=== PATIENT | male | born 1955 | race Caucasian/White ===

== ENCOUNTER → 2018-01-10 | Outpatient (REF) | payer OTHER | LOC: M LAB REF 20:02 | DX: J02.9 Acute pharyngitis, unspecified (principal) ==

== ENCOUNTER 2018-04-09 14:28 | Emergency (ER) | payer OTHER ==
[2018-04-09] MEDS: NS IV (15:30)
[2018-04-09] MEDS: ACETAMINOPHEN 325 MG TAB PO (15:30)
[2018-04-09] MEDS: DILUENT IV (15:30)
[2018-04-09] MEDS: CLINDAMYCIN 900 MG in APPROPRIATE DILUENT 1 EA IV (15:45)
[2018-04-09 15:47] LABS: BASO % 0.2 % (0.0-1.0); HEMOGLOBIN 14.8 g/dl (13.5-17.5); IMMATURE GRANULOCYTE % 0.4 % (0-3.0); LYMPH # 1.3 10^3/uL (1.5-4.5); LYMPH % 9.6 % (24.0-44.0); MEAN CORPUSCULAR HEMOGLOBIN 30.5 pg (27.0-33.0); MEAN CORPUSCULAR HGB CONC 34.4 g/dl (32.0-36.5); MEAN CORPUSCULAR VOLUME 88.5 fl (80.0-96.0); MONO # 1.3 10^3/uL (0.0-0.8); MONO % 9.7 % (0.0-5.0); NEUTROPHILS # 10.6 10^3/uL (1.8-7.7); NEUTROPHILS % 80.1 % (36.0-66.0); PLATELET COUNT, AUTOMATED 195 10^3/uL (150-450); RED BLOOD COUNT 4.86 10^6/uL (4.30-6.10); RED CELL DISTRIBUTION WIDTH 13.8 % (11.5-14.5); WHITE BLOOD COUNT 13.3 10^3/uL (4.0-10.0)
[2018-04-09 15:50] LABS: APPEARANCE, URINE CLOUDY (CLEAR); BACTERIA, URINE AUTO NEGATIVE (NEGATIVE); BILIRUBIN, URINE AUTO NEGATIVE (NEGATIVE); BLOOD, URINE BLOOD NEGATIVE (NEGATIVE); COLOR, URINE AMBER (YELLOW); GLUCOSE, URINE (UA) AUTO NEGATIVE (NEGATIVE); KETONE, URINE AUTO 1+ mg/dL (NEGATIVE); LEUKOCYTE ESTERASE, URINE AUTO NEGATIVE (NEGATIVE); MUCUS, URINE LARGE (NEGATIVE); NITRITE, URINE AUTO NEGATIVE (NEGATIVE); PROTEIN, URINE AUTO 2+ mg/dL (NEGATIVE); RBC, URINE AUTO 6 /HPF (0-3); SPECIFIC GRAVITY URINE AUTO 1.026 (1.002-1.035); SQUAMOUS EPITHELIAL CELL UR AU 0 /HPF (0-6); UROBILINOGEN, URINE AUTO 0.2 mg/dL (0.0-2.0); WBC, URINE AUTO 1 /HPF (0-3)
[2018-04-09] MEDS: CIPRODEX OTIC SUSP 7.5ML AS (16:00)
[2018-04-09 16:02] LABS: INR 1.13; PROTHROMBIN TIME 14.6 SECONDS (12.1-14.4)
[2018-04-09 16:03] LABS: PARTIAL THROMBOPLASTIN TIME 29.9 SECONDS (25.4-37.6)
[2018-04-09 16:11] LABS: ALBUMIN/GLOBULIN RATIO 1.08 (1.00-1.93); ALKALINE PHOSPHATASE 60 U/L (45-117); ALT/SGPT 24 U/L (12-78); ANION GAP 10 MEQ/L (8-16); AST/SGOT 15 U/L (7-37); BILIRUBIN,DIRECT 0.1 MG/DL (0.0-0.2); BILIRUBIN,TOTAL 0.5 MG/DL (0.2-1.0); BLOOD UREA NITROGEN 13 MG/DL (7-18); C REACTIVE PROTEIN QUANTITATIV 9.27 MG/DL (0.00-0.30); CALCIUM LEVEL 8.8 MG/DL (8.8-10.2); CARBON DIOXIDE LEVEL 26 MEQ/L (21-32); CHLORIDE LEVEL 103 MEQ/L (98-107); CREATININE FOR GFR 1.11 MG/DL (0.70-1.30); GLOMERULAR FILTRATION RATE > 60.0 (>49); GLUCOSE, FASTING 116 MG/DL (70-100); LIPASE 132 U/L (73-393); POTASSIUM SERUM 3.9 MEQ/L (3.5-5.1); SODIUM LEVEL 139 MEQ/L (136-145); TOTAL PROTEIN 7.7 GM/DL (6.4-8.2)
[2018-04-09] MEDS: MORPHINE 4 MG/ML 1ML VIAL/SYRINGE (J2270) IV (16:11)
[2018-04-09 16:12] LABS: LACTIC ACID SEPSIS PROTOCOL 1.5 MMOL/L (0.4-2.0)
[2018-04-09] MEDS ORDERED: ISOVUE-370 76% 100ML VIAL (Q9967) As Ordered (16:24)
== END 2018-04-09 18:05 | disposition home or self-care (01) ==
LOC: M ED 14:28
DX: H60.12 Cellulitis of left external ear (principal); R50.9 Fever, unspecified; M54.5 Low back pain; I10 Essential (primary) hypertension; E78.9 Disorder of lipoprotein metabolism, unspecified; G47.33 Obstructive sleep apnea (adult) (pediatric); Z79.02 Long term (current) use of antithrombotics/antiplatelets
CPT/HCPCS: J2270

== ENCOUNTER 2018-10-03 21:24 | Emergency (ER) | payer OTHER ==
[~2018-10-03] VITALS: Ht 167.6 cm; Wt 88.6 kg
[~2018-10-03 21:24] MED LIST: AMLO5TAB6 PO; ASPI1TAB PO; ATOR40TA75 PO; CLEO300C2 PO; CLOP75TA2 PO; HYDR12.55 PO; MULT1TAB10 PO; NORCOTAB PO; TELM1TAB37 PO; TERB250T12 PO; VITA100067 PO; VITA500T3 PO
[2018-10-03 21:47] LABS: BASO % 0.2 % (0.0-1.0); EOS # 0.1 10^3/uL (0.0-0.50); EOS % 0.9 % (0.0-3.0); HEMATOCRIT 41.3 % (42.0-52.0); HEMOGLOBIN 13.8 g/dl (13.5-17.5); LYMPH # 4.5 10^3/uL (1.5-4.5); LYMPH % 49.8 % (24.0-44.0); MEAN CORPUSCULAR HEMOGLOBIN 30.2 pg (27.0-33.0); MEAN CORPUSCULAR HGB CONC 33.4 g/dl (32.0-36.5); MEAN CORPUSCULAR VOLUME 90.4 fl (80.0-96.0); MONO # 0.9 10^3/uL (0.0-0.8); MONO % 9.9 % (0.0-5.0); NEUTROPHILS # 3.5 10^3/uL (1.8-7.7); NEUTROPHILS % 38.9 % (36.0-66.0); PLATELET COUNT, AUTOMATED 215 10^3/uL (150-450); RED BLOOD COUNT 4.57 10^6/uL (4.30-6.10)
[2018-10-03 22:18] LABS: BLOOD UREA NITROGEN 18 MG/DL (7-18); CALCIUM LEVEL 8.7 MG/DL (8.8-10.2); CARBON DIOXIDE LEVEL 31 MEQ/L (21-32); CHLORIDE LEVEL 105 MEQ/L (98-107); CPK CREATINE PHOSPHOKINASE 194 U/L (39-308); CREATININE FOR GFR 1.19 MG/DL (0.70-1.30); GLOMERULAR FILTRATION RATE > 60.0 (>49); GLUCOSE, FASTING 100 MG/DL (70-100); MB/CK RELATIVE INDEX 1.49 (< OR =4); POTASSIUM SERUM 3.9 MEQ/L (3.5-5.1); SODIUM LEVEL 141 MEQ/L (136-145); TROPONIN I < 0.02 NG/ML (< 0.10)
[2018-10-03 23:05] VITALS: BP 116/63
--- NOTE | 2018-10-04 08:04 | ECGEPIP ---
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
--- NOTE | 2018-10-04 11:30 | REP ---
Clinical: Palpitations and chest pain . Comparison: 02/10/2013 . Findings: The mediastinum and cardiac silhouette are stable and within normal limits for portable technique. Evidence of prior sternotomy. The The lung felder are clear without acute consolidation, effusion, or pneumothorax. Skeletal structures are intact. Impression: No acute cardiopulmonary process appreciated. Electronically Signed by Johnathan Bush MD 10/04/2018 11:21 A
== END 2018-10-03 23:12 | disposition home or self-care (01) ==
LOC: M ED 21:24
DX: R07.89 Other chest pain (principal); R00.1 Bradycardia, unspecified; I25.10 Atherosclerotic heart disease of native coronary artery without angina pectoris; I10 Essential (primary) hypertension; N40.0 Benign prostatic hyperplasia without lower urinary tract symptoms; Z95.1 Presence of aortocoronary bypass graft; Z79.82 Long term (current) use of aspirin; Z79.899 Other long term (current) drug therapy

== ENCOUNTER → 2019-01-18 | Outpatient (CLI) | payer MEDICARE, OTHER ==
[~2019-01-18] MED LIST changes: -ASPI1TAB PO; +ASPI81TA26 PO; +HYDR-3715 PO; -NORCOTAB PO
--- NOTE | 2019-01-20 22:36 | SLEEPCENT ---
DATE OF PROCEDURE: 01/20/2019 ORDERED BY: Araceli Shah Nocturnal polysomnography was performed for the titration of pressure therapy in this patient with obstructive sleep apnea syndrome. Apnea-hypopnea index of 19.1. For testing a ResMed AirFit F20 full face mask of large size was used, 8 cm of water pressure was initially applied to the circuit and the lights were extinguished. 7 hours and 46 minutes of data were reviewed. There were 332 minutes of sleep identified. Sleep latency was mildly prolonged at 23 minutes. Rapid eye movement (REM) latency more so prolonged at 207 minutes. Sleep architecture improved late in the study but periods of wake resulted in reduced sleep efficiency of 72.4%. The patient's electrocardiogram showed a sinus rhythm with an average heart rate of 70 beats per minute, rate ranged 50-82. EEG showed normal waveforms for awake and sleep. Respiratory events were fully palliated with continuous positive airway pressure (CPAP) at a pressure of +9. There was some limb activity noted in the EMG leads. Some minor snoring. Limb movement arousals occurred only 4.7 times per hour. IMPRESSION: Obstructive sleep apnea syndrome (G47.33). RECOMMENDATIONS: Nightly use of pressure therapy 9 cm of water.
== END ==
LOC: M SLEEP 19:29
PROVIDERS: ATTEND Nurse Practitioner Adult Health
DX: G47.33 Obstructive sleep apnea (adult) (pediatric) (principal)

== ENCOUNTER 2020-09-09 05:43 | Inpatient (IN) | payer OTHER ==
[~2020-09-09] VITALS: Ht 167.6 cm; Wt 93.6 kg
[~2020-09-09 05:43] MED LIST changes: +AMLO1TAB24 PO; -AMLO5TAB6 PO; +CYAN500T14 PO; -VITA500T3 PO
--- OUTSIDE RECORDS SUMMARY | 2020-09-09 05:49 | CCD | Continuity of Care Document ---
Author Author Joey ESTRADA RPA Organization Unknown Address [address] [facility]. [address] [place] [address] Phone [phone] Problems Active Problems Provider Date Coronary arteriosclerosis Travis Estrada RPA Onset: 11/11 Hyperlipidemia Travis Estrada RPA Onset: 02/28/2007 Chronic otitis externa Travis Estrada RPA Onset: 012 Acquired trigger finger Travis Estrada RPA Onset: 2011 Benign prostatic hypertrophy without outflow obstruction Travis Forrest RPA Onset: 03/04/2012 Anemia Travis Estrada RPA Onset: 04/19/2012 Obstructive sleep apnea syndrome Travis Estrada RPA Onse t: 10/17/2016 Note: CPAP 8cm Pressure Secondary erectile dysfunction Travis Estrada RPA Onset: 10/17/2016 Nocturia Travis Estrada RPA Onset: 10/17/2016 Paroxysmal supraventricular tachycardia Travis Estrada R PA Onset: 10/17/2016 Coronary artery bypass grafts x 4 Travis Estrada RPA Ons et: 10/17/2016 Note: Dr. Fajardo Impaired fasting glycaemia Travis Estrada RPA Onset: 02/2017 Patient post percutaneous transluminal coronary angiop lasty Travis Estrada RPA Onset: 12/10/2017 Psychogenic impotence Travis Estrada RPA Onset: 10/18/19 17 Essential hypertension Travis Estrada RPA Onset: 017 Social History Type Date Description Comments Sex Unknown Tobacco Use Start: Unknown End: Unknown Patient is a former smoker Allergies, Adverse Reactions, Alerts Description No Known Drug Allergies Medications Active Medications SIG Qnty Indications Ordering Provide r Date Solu-Medrol 125mg Solution Rec intramuscular stat 1units Michael Ramírez D.O., [facility] 08/31/2020 Prednisone 10mg Tablets 2 po tid x 3 days, then 1 po tid x 3 days, then 1 po bid x 3 days, then 1 po qd x 3 days, then 1/2 po qd 42tabs Michael Ramírez D.O., [facility] Baclofen 10mg Tablets take 1 tablet by mouth every at bedtime 14tabs Michael Ramírez D.O., [facility] 08/31/2020 Tadalafil 20mg Tablets take one tablet by mouth every 36 hours as needed 14tabs Michael Ramírez D.O., [facility] 12/22/2019 Triamcinolone Acetonide 0.1% Cream apply locally to ears twice a day as needed 30gm Michael Ramírez D.O., [facility] 12/02/2019 Plavix 75mg Tablets 1 po qd 90tabs Unknown Nitrostat 0.4mg Tablets Sub 1 sl q 5 min for chest pain. may take up to 3 doses at which point also seek medical attention. 30tabs Unknown Lipitor 40mg Tablets 1 po qd Kike He M.D. Multivitamins Capsules 1 by mouth every day Unknown B Complex Tablets Unknown Amlodipine Besylate 5mg Tablets 1 by mouth every day Unknown Telmisartan 80mg Tablets 1 by mouth every day. Unknown Asa 81 Capsules 1 by mouth ev raoul Unknown Medications Administered in Office Medication SIG Qnty Indications Ordering Provider Date Injection (SC)/(Im) Injection Travis Estrada RPA 12/10/2017 Immunizations CPT Code Status Date Vaccine Lot # [id number] Given 12/10/2017 Pneumococcal Immunization N0 Vital Signs Date Vital Result Comment 08/31/2020 12:59pm BP Systolic 144 mmHg BP Diastolic 82 mmHg Body Temperature 98.0 F Heart Rate 80 /min Respiratory Rate 16 /min Height 66 inches 5'6" Weight 211.00 lb [place] Body Weight 142 lb BMI (Body Mass Index) 34.1 kg/m2 O2 % BldC Oximetry 96 % 12/02/2019 9:37am BP Systolic 122 mmHg BP Diastolic 66 mmHg Body Temperature 98.8 F Heart Rate 69 /min Respiratory Rate 16 /min Height 66 inches 5'6" Weight 198.00 lb [place] Body Weight 142 lb BMI (Body Mass Index) 32.0 kg/m2 O2 % BldC Oximetry 97 % Results Description No Information Available Procedures Description No Information Available Medical Devices Description No Information Available Encounters Type Date Location Provider Dx Diagnosis Office Visit 08/31/2020 1:00p [facility] Travis Estrada, RP A M54.31 Sciatica, right side Assessments Date Code Description Provider 08/31/2020 M54.31 Sciatica, right side Bryan Estrada, CJ Plan of Treatment No Information Available Functional Status Description No Information Available Mental Status Description No Information Available Referrals Description No Information Available
--- OUTSIDE RECORDS SUMMARY | 2020-09-09 05:49 | CCD | Continuity of Care Document ---
Author Author [facility] Organization Unknown Address [address] [place] [address] Phone Unavailable Care Team Providers Care Placement Secretary Name Role Phone Yannick Dominguez M.D. AUTM [phone] Kike He M.D. AUT[facility] [phone] Travis Estrada (Location I) AUTM [phone] Problems Active Problems Provider Date Coronary arteriosclerosis Adeel Santizo M.D. Onset: 2012 Pure hypercholesterolemia Adeel Santizo M.D. Onset: 2012 Essential hypertension Adeel Santizo M.D. Onset: 3 Obesity Kike He M.D. Onset: 11/27/2013 Electrocardiogram abnormal Onset: 2012 Carotid artery occlusion Onset: 04/02/20 13 Precordial pain Kike He M.D. Onset: 01/20/2013 Paroxysmal supraventricular tachycardia Helena Cabral N Vahid Onset: 04/16/2012 Patient post percutaneous transluminal coronary angiop lasty Kike He M.D. Onset: 11/29/2011 Benign essential hypertension Kike He M.D. Onset: Malaise and fatigue Kike He M.D. Onset: 03/25/2014 Difficulty breathing Kike He M.D. Onset: 03/25/2014 Aortic valve disorder Onset: 04/10/2019 Coronary arteriosclerosis Onset: 012 Dietary management surveillance Onset: 09/02/2016 Essential hypertension Onset: 02/17/2015 History of coronary artery bypass grafting Onset: 03/22/2016 Obstructive sleep apnea syndrome Onset: 09/26/2018 Pure hypercholesterolemia Onset: 012 Social History Type Date Description Comments Sex Unknown Tobacco Use Start: Unknown End: Unknown Former Cigarette Smo ker 2 Packs Daily Cigarette Use Pack Years - 15 ETOH Use Occasionally consumes alcohol qw eekly Tobacco Use Start: Unknown End: Patient is a former smoker Smoking Status Reviewed: 06/20/18 Patient is a former smoker Allergies, Adverse Reactions, Alerts Description No Known Drug Allergies Medications Active Medications SIG Qnty Indications Ordering Provide r Date Aspir-Low 81mg Tablets DR 1 by mouth every day Unknown 2019 Telmisartan 80mg Tablets 1 by mouth every day 90tabs I10 Kike He M.D. 12/27/2016 Telmisartan 80mg Tablets take 1 tablet daily 90tabs I10 Kike He M.D. 12/27/2016 Pronutrients Vitamin D3 1000Unit C apsules 1 by mouth every day Unknown 12/26/2016 Biotin 5mg Tablets once daily Unknown 12/26/2016 Amlodipine Besylate 5mg Tablets 1 by mouth every day 90tabs I10 Kike He M.D. 02/17/2015 Amlodipine Besylate 5mg Tablets take 1 tablet daily 90tabs I10 Kike He M.D. 02/17/2015 Aspirin 325mg Tablets 1/2 by mouth every day Z95.5 Unknown 02/16/2015 Clopidogrel Bisulfate 75mg Tablets take 1 tablet daily 90tabs I25.10 Kike He M.D. 11/27/2013 Atorvastatin Calcium 40mg Tablets take 1 tablet daily at bedtime 90tabs E78.0 Kike He M.D. Clopidogrel Bisulfate 75mg Tablets 1 by mouth every day 90tabs Kiek He M.D. 11/27/2013 Telmisartan 80mg Tablets ever y day Unknown Terbinafine HCL 250mg Tablets every day Unknown Flax Seeds qd Unknown Aspirin 81mg Tablets 1 by mouth every day Unknown Vitamin D 5000Unit Capsules q d Unknown Turmeric Capsules qd Unknown Super B Complex Maxi Tablets qd Unknown Amlodipine Besylate 5mg Tablets every day Unknown Multivitamins Capsules 1 po qd Unknown Nitrostat 0.4mg Tablets Sub p rn Unknown Lipitor 40mg Tablets qd Unknown Plavix 75mg Tablets 1 po qd 30tabs Unknown Immunizations Description No Information Available Vital Signs Date Vital Result Comment 07/07/2020 8:38am BP Systolic Right Arm 160 mmHg BP Diastolic Right Arm 80 mmHg BP Systolic Left Arm 160 mmHg BP Diastolic Left Arm 80 mmHg Height 66 inches 5'6" Weight 190.00 lb Weight 86.184 kg BMI (Body Mass Index) 30.7 kg/m2 06/20/2018 2:29pm BP Systolic Right Arm 170 mmHg BP Diastolic Right Arm 80 mmHg Height 66 inches 5'6" Weight 190.00 lb Weight 86.184 kg BMI (Body Mass Index) 30.7 kg/m2 Results Test Acquired Date Facility Test Result H/L Range Note Xray 07/07/2020 [facility] Carotid Ultrasound Bilateral <pending> Procedures Date Code Description Status 07/07/2020 27336 Duplex Scan Extracranial Arterie s, Complete Bilateral Study Completed Medical Devices Description No Information Available Encounters Description No Information Available Assessments Date Code Description Provider 07/07/2020 I65.23 Occlusion and stenosis of bilate ral carotid arteries [facility] Plan of Treatment Future Appointment(s):* 01/11/2022 9:00 am - Adeel Santizo M.D. at Main Office * 01/11/2022 8:30 am - [facility] at [facility] Office 06/20/2018 - Zaheer Lan* I65.22 Occlusion and stenosis of left carotid artery * * Follow up:* 18 MONTH OV/US/ CAROTID BILATERAL/ Functional Status Description No Information Available Mental Status Description No Information Available Referrals Description No Information Available
--- OUTSIDE RECORDS SUMMARY | 2020-09-09 05:49 | CCD | Continuity of Care Document ---
Author Author [facility] Organization Unknown Address [address] [place] [address] Phone Unavailable Care Team Providers Care Groundskeeper Name Role Phone Yannick Dominguez M.D. AUTM [phone] Kike He M.D. AUTM [phone] Travis Estrada (Location I) [facility]M Problems Active Problems Provider Date Coronary arteriosclerosis [...] Tablets 1 by mouth every day 90tabs Kike He M.D. 11/27/2013 Telmisartan 80mg Tablets ever [...] <pending> Procedures Date Code Description Status 07/07/2020 73974 Duplex Scan Extracranial Arterie s, Complete Bilateral Study Completed Medical Devices Description No Information Available Encounters Description No Information Available Assessments Date Code Description Provider 07/07/2020 I65.23 Occlusion and stenosis of bilate ral carotid arteries Adeel Santizo M.D. 07/07/2020 I65.23 Occlusion and stenosis of bilate [...]
--- OUTSIDE RECORDS SUMMARY | 2020-09-09 05:49 | CCD | Continuity of Care Document ---
Author Author Joey ESTRADA RPA Organization Unknown Address [address] [facility] [place] [address] Phone [phone] Problems Active Problems Provider Date Coronary arteriosclerosis [...] SIG Qnty Indications Ordering Provide r Date Prednisone 10mg Tablets 2 po tid x 3 days, then 1 po tid x 3 days, then 1 po bid x 3 days, then 1 po qd x 3 days, then 1/2 po qd 42tabs Michael Ramírez D.O., [facility] Baclofen 10mg Tablets take 1 tablet by mouth every at bedtime 14tabs Michael Ramírez D.O., [facility] 08/31/2020 Tadalafil 20mg Tablets take one tablet by mouth every 36 hours as needed 14tabs Michael Ramírez D.O., [facility] 12/22/2019 Triamcinolone Acetonide 0.1% Cream apply locally to ears twice a day as needed 30gm Michael Ramírez D.O., [facility] 12/02/2019 Plavix 75mg Tablets 1 po qd [...] Unknown Asa 81 Capsules 1 by mouth Unknown History Medications Solu-Medrol 125mg Solution Rec intramuscular stat 1units Michael Ramírez D.O., [facility] 08/31/2020 - 09/01/2020 Medications Administered in Office Medication SIG Qnty Indications Ordering Provider Date Injection (SC)/(Im) Injection Travis Estrada RPA 12/10/2017 Immunizations CPT Code Status Date Vaccine Lot # [id number] Given 12/10/2017 Pneumococcal Immunization N0 Vital Signs Date Vital Result Comment 08/31/2020 12:59pm BP Systolic 144 mmHg BP Diastolic 82 mmHg Body Temperature 98.0 F Heart Rate 80 /min Respiratory Rate 16 /min Height 66 inches 5'6" Weight 211.00 lb [place] Body Weight 142 lb BMI (Body Mass Index) 34.1 kg/m2 O2 % BldC Oximetry 96 % 12/02/2019 9:37am BP Systolic 122 mmHg BP Diastolic 66 mmHg Body Temperature 98.8 F Heart Rate 69 /min Respiratory Rate 16 /min Height 66 inches 5'6" Weight 198.00 lb [place] Body Weight 142 lb BMI (Body Mass Index) 32.0 kg/m2 O2 % BldC Oximetry 97 % Results Description No Information Available Procedures Description No Information Available Medical Devices Description No Information Available Encounters Type Date Location Provider Dx Diagnosis Office Visit 08/31/2020 1:00p [place] [facility] Travis Estrada, RP A M54.31 Sciatica, right side Assessments Date Code Description Provider 08/31/2020 M54.31 Sciatica, right side Bryan Estrada, CJ Plan of Treatment No Information Available Functional Status Description No Information Available Mental Status Description No Information Available Referrals Description No Information Available
--- OUTSIDE RECORDS SUMMARY | 2020-09-09 05:49 | CCD ---
Author Author [facility] Organization [facility] Address Unknown Phone Unavailable Care Team Providers Care Service Station Cashier Name Role Phone CHEMAOL, Dwain MARSH MD Unavailable Unavailable ANTECOL, Dwain MARSH MD Unavailable Unavailable ANTECOL, Dwain MARSH MD Unavailable Unavailable ANTECOLDwain MD Unavailable Unavailable ANTECOLDwain MD Unavailable Unavailable ANTECOLDwain MD Unavailable Unavailable ANTECOLDwain MD Unavailable Unavailable ANTECOLDwain MD Unavailable Unavailable ANTECOLDwain MD Unavailable Unavailable ANTECOLDwain MD Unavailable Unavailable ANTECOLDwain MD Unavailable Unavailable ANTECOLDwain MD Unavailable Unavailable ANTECOLDwain MD Unavailable Unavailable ANTECOLDwain MD Unavailable Unavailable ANTECOLDwain MD Unavailable Unavailable ANTECOLDwain MD Unavailable Unavailable ANTECOLDwain MD Unavailable Unavailable ANTECOLDwain MD Unavailable Unavailable ANTECOLDwain MD Unavailable Unavailable ANTECOLDwain MD Unavailable Unavailable ANTECOLDwain MD Unavailable Unavailable ANTECOLDwain MD Unavailable Unavailable ANTECOLDwain MD Unavailable Unavailable ANTECOLDwain MD Unavailable Unavailable ANTECOLDwain MD Unavailable Unavailable ANTECOLDwain MD Unavailable Unavailable ANTECOLDwain MD Unavailable Unavailable ANTECOLDwain MD Unavailable Unavailable ANTECOLDwain MD Unavailable Unavailable ANTECOLDwain MD Unavailable Unavailable ANTECOLDwain MD Unavailable Unavailable ANTECOLDwain MD Unavailable Unavailable ANTECOL, Dwain MARSH MD Unavailable Unavailable ANTECOL, Dwain MARSH MD Unavailable Unavailable ANTECOL, Dwain MARSH MD Unavailable Unavailable ANTECOL, Dwain MARSH MD Unavailable Unavailable ANTECOL, Dwain MARSH MD Unavailable Unavailable ANTECOL, Dwain MARSH MD Unavailable Unavailable ANTECOL, Dwain MARSH MD Unavailable Unavailable ANTECOL, Dwain MARSH MD Unavailable Unavailable ANTECOL, Dwain MARSH MD Unavailable Unavailable ANTECOL, Dwain MARSH MD Unavailable Unavailable ANTECOL, Dwain MARSH MD Unavailable Unavailable ANTECOL, Dwain MARSH MD Unavailable Unavailable ANTECOL, Dwain MARSH MD Unavailable Unavailable ANTECOL, Dwain MARSH MD Unavailable Unavailable ANTECOL, Dwain MARSH MD Unavailable Unavailable ANTECOL, Dwain MARSH MD Unavailable Unavailable ANTECOL, Dwain MARSH MD Unavailable Unavailable ANTECOL, Dwain MARSH MD Unavailable Unavailable ANTECOL, Dwain MARSH MD Unavailable Unavailable ANTECOL, Dwain MARSH MD Unavailable Unavailable ANTECOL, Dwain MARSH MD Unavailable Unavailable ANTECOL, Dwain MARSH MD Unavailable Unavailable ANTECOL, Dwain MARSH MD Unavailable Unavailable Natalie, D Travis PA Unavailable Unavailable Natalie, D Travis PA Unavailable Unavailable Natalie, D Travis PA Unavailable Unavailable Natalie, D Travis PA Unavailable Unavailable Natalie, D Travis PA Unavailable Unavailable Natalie, D Travis PA Unavailable Unavailable Natalie, D Travis PA Unavailable Unavailable Natalie, D Travis PA Unavailable Unavailable Natalie, D Travis PA Unavailable Unavailable Natalie, D Travis PA Unavailable Unavailable Natalie, D Travis PA Unavailable Unavailable Natalie, D Travis PA Unavailable Unavailable Natalie, D Travis PA Unavailable Unavailable Natalie, D Travis PA Unavailable Unavailable Natalie, D Travis PA Unavailable Unavailable Natalie, D Travis PA Unavailable Unavailable Natalie, D Travis PA Unavailable Unavailable Natalie, D Travis PA Unavailable Unavailable Natalie, D Travis PA Unavailable Unavailable Natalie, D Travis PA Unavailable Unavailable Natalie, D Travis PA Unavailable Unavailable Natalie, D Travis PA Unavailable Unavailable Natalie, D Travis PA Unavailable Unavailable Natalie, D Travis PA Unavailable Unavailable Natalie, D Travis PA Unavailable Unavailable Natalie, D Travis PA Unavailable Unavailable Natalie, D Travis PA Unavailable Unavailable Natalie, D Travis PA Unavailable Unavailable Natalie, D Travis PA Unavailable Unavailable Natalie, D Tarvis PA Unavailable Unavailable Natalie, D Travis PA Unavailable Unavailable Natalie, D Travis PA Unavailable Unavailable Natalie, D Travis PA Unavailable Unavailable Natalie, D Travis PA Unavailable Unavailable Natalie, D Travis PA Unavailable Unavailable Natalie, D Travis PA Unavailable Unavailable Natalie, D Travis PA Unavailable Unavailable Natalie, D Travis PA Unavailable Unavailable Natalie, D Travis PA Unavailable Unavailable Natalie, D Travis PA Unavailable Unavailable Natalie, D Travis PA Unavailable Unavailable Natalie, D Travis PA Unavailable Unavailable Natalie, D Travis PA Unavailable Unavailable Natalie, D Travis PA Unavailable Unavailable Natalie, D Travis PA Unavailable Unavailable Natalie, D Travis PA Unavailable Unavailable Natalie, D Travis PA Unavailable Unavailable Natalie, D Travis PA Unavailable Unavailable Natalie, D Travis PA Unavailable Unavailable Natalie, D Travis PA Unavailable Unavailable Natalie, D Travis PA Unavailable Unavailable Natalie, D Travis PA Unavailable Unavailable Natalie, D Travis PA Unavailable Unavailable Natalie, D Travis PA Unavailable Unavailable Natalie, D Travis PA Unavailable Unavailable Natalie, D Travis PA Unavailable Unavailable Natalie, D Travis PA Unavailable Unavailable Natalie, D Travis PA Unavailable Unavailable Natalie, D Travis PA Unavailable Unavailable Natalie, D Travis PA Unavailable Unavailable Natalie, D Travis PA Unavailable Unavailable Natalie, D Travis PA Unavailable Unavailable Natalie, D Travis PA Unavailable Unavailable Re-disclosure Warning The records that you are about to access may contain information from federally-assisted alcohol or drug abuse programs. If such information is present, then the following federally mandated warning applies: This information has been disclosed to you from records protected by federal confidentiality rules (42 CFR part 2). The federal rules prohibit you from making any further disclosure of this information unless further disclosure is expressly permitted by the written consent of the person to whom it pertains or as otherwise permitted by 42 CFR part 2. A general authorization for the release of medical or other information is NOT sufficient for this purpose. The Federal rules restrict any use of the information to criminally investigate or prosecute any alcohol or drug abuse patient.The records that you are about to access may contain highly sensitive health information, the redisclosure of which is protected by Article 27-F of the [facility] Public Health law. If you continue you may have access to information: Regarding HIV / AIDS; Provided by facilities licensed or operated by the [facility] Office of Mental Health; or Provided by the [facility] Office for People With Developmental Disabilities. If such information is present, then the following [facility] mandated warning applies: This information has been disclosed to you from confidential records which are protected by state law. State law prohibits you from making any further disclosure of this information without the specific written consent of the person to whom it pertains, or as otherwise permitted by law. Any unauthorized further disclosure in violation of state law may result in a fine or long term sentence or both. A general authorization for the release of medical or other information is NOT sufficient authorization for further disc losure. Family History Family Member Name Family Member Gender Family Member Status Date o f Status Description Data Source(s) Unknown Unknown Problem [facility] ([facility] Unknown Male Problem [facility] ([facility] () Unknown Female Problem [facility] ([facility] Encounters Encounter Providers Location Date Indications Data Source(s ) Outpatient Attender: Travis DUFFY [place] Office 12:00:00 PM EST [facility] ([facility] Outpatient Attender: Travis DUFFY [place] Office 09:30:00 AM EDT [facility] ([facility] Outpatient Attender: SALMA ALVARENGA MD Main Office 10/24/2019 08:15:00 AM EDT [facility] ([facility]) Medications Medication Brand Name Start Date Product Form Dose Route Admi nistrative Instructions Pharmacy Instructions Status Indications Reaction Description Data Source(s) Baclofen 10 MG Oral Tablet Baclofen 08/31/2020 12:00:00 AM EST ORAL active [facility] ([facility] Solu-Medrol Solu-Medrol 08/31/2020 12:00:00 AM EST completed [facility] ([facility] Prednisone 10 MG Oral Tablet Prednisone 08/31/2020 12:00:00 AM EST ORAL active [facility] ([facility] tadalafil 20 MG Oral Tablet Tadalafil 12/22/2019 12:00:00 AM EDT ORAL active [facility] ([facility] tadalafil 20 MG Oral Tablet Tadalafil (Pah) 12/02/2019 12:00:00 AM EDT ORAL active [facility] ([facility] Triamcinolone Acetonide 1 MG/ML Topical Cream Triamcinolone Acetonide 12/02/2019 12:00:00 AM KEITH [place] ([facility] Insurance Providers Payer name Policy type / Coverage type Policy ID Covered green party ID Covered green party's relationship to [place] Policy [place] Plan Information [facility] [id number] [id number] MEDICARE [id number] SP [id number] Umr Commercial [id number] Fa tommy Dependent [id number] [place] PH[employer] Ppo Medigap Part B [id number] Self [id number] [place] BC/BS Medigap Part B [id number] Self [id number] [place] BC/[place] Of [place] Medigap Part B [id number] Self [id number] Blue Ppo Medigap Part B [id number] Self [id number] Umr Commercial [id number] Fa tommy Dependent [id number] UMR O [id number] S [id number] [employer] [id number] WI2 [id number] [place] Health Maintenance Organization (HMO) [id number] Fa tommy Dependent [id number] [place] PHCS Ppo Medigap Part B [id number] Self [id number] [place] Commercial [id number] Family Dependent [id number] [employer] PPO O [id number] P [id number] [place] BC/BS Medigap Part B Self [place] BC/BS Of [place] Medigap Part B Self Blue Ppo Medigap Part B Self [place] Commercial Family Dependent [place] Commercial Family Dependent POMCO O [id number] SP [id number] SELF PAY 2 UNAVAILABLE 1 UNAVAILA BLE [employer] PPO 2 [id number] 2 [id number] BC BLUE CARD 1 [id number] BC OUT OF STATE 1 [id number] Surgeries/Procedures Procedure Description Date Indications Data Source(s) DUPLEX SCAN EXTRACRANIAL ART COMPL BI STUDY 07/07/2020 12:00:00 AM EST [facility] ([facility]) ECG ROUTINE ECG W/LEAST 12 LDS W/I&R 10/24/2019 12:00: 00 AM EDT [facility] ([facility]) ECHO TTHRC R-T 2D W/WOM-MODE COMPL SPEC&COLR DOP 07/22 12:00:00 AM EST [facility] ([facility]) Results ID Date Data Source [id number] 09/02/2020 12:00:00 AM EST [facility] Name Value Range Interpretation Code Description Data Francoise rce(s) Supporting Document(s) SARS-CoV2 Rapid Antigen Positive [facility] This lab was ordered by [facility] and reported by [facility]. ID Date Data Source [id number] 07/27/2020 12:00:00 AM EST [facility] Name Value Range Interpretation Code Description Data Francoise rce(s) Supporting Document(s) SARS-CoV2 Rapid Antigen [facility] This lab was ordered by [facility] and reported by [facility]. ID Date Data Source [id number] 07/07/2020 08:37:00 AM EST [facility] ([facility]) Name Value Range Interpretation Code Description Data Francoise rce(s) Supporting Document(s) Carotid Ultrasound Bilateral Laboratory test result [facility] ([facility]) ID Date Data Source [id number] 12/02/2019 01:05:00 PM EDT [facility] ([facility] Name Value Range Interpretation Code Description Data Francoise rce(s) Supporting Document(s) Prostate specific Ag [Mass/volume] in Serum or Plasma 1.41 ng/mL 0.0- 4.0 [facility] ([facility] ID Date Data Source [id number] 12/02/2019 10:24:00 AM EDT [facility] ([facility] Name Value Range Interpretation Code Description Data Francoise rce(s) Supporting Document(s) Hemoglobin A1c/Hemoglobin.total in Blood 5.6 % 4.50-6.20 [facility] ([facility] ID Date Data Source [id number] 12/02/2019 10:09:00 AM EDT [facility] ([facility] [facility] Name Value Range Interpretation Code Description Data Francoise rce(s) Supporting Document(s) Calcidiol [Mass/volume] in Serum or Plasma 69.8 ng/mL 30.0-100.0 [facility] ([facility] Vitamin D deficiency has been defined by the [place] of Medicine and an Endocrine Society practice guideline as a level of serum 25-OH vitamin D less than 20 ng/mL (1,2). The Endocrine Society went on to further define vitamin D insufficiency as a level between 21 and 29 ng/mL (2). 1. IOM ([place] of Medicine). 2010. Di etary reference intakes for calcium and D. [place]: The National Academies Press. 2. Oh MCNEIL, Susan CABALLERO, Virgilio ramos CODY, et al. Evaluation, treatment, and prevention of vitamin D deficiency: an Endocrine Society clinical practice guideline. JCEM. 2010; 96(7):1911-30. ID Date Data Source [id number] 12/02/2019 10:07:00 AM EDT [facility] ([facility] [employer] [facility] Name Value Range Interpretation Code Description Data Francoise rce(s) Supporting Document(s) Thyrotropin [Units/volume] in Serum or Plasma 2.380 ulU/mL 0.60-4.8 [facility] ([facility] ID Date Data Source [id number] 12/02/2019 10:07:00 AM EDT [facility] ([facility] Name Value Range Interpretation Code Description Data Francoise rce(s) Supporting Document(s) Trig 108 mg/dL 35-200 [facility] ([facility] CLASSIFICATION CHOLESTEROL FO R ADULTS CHILDREN/ADOLESCENTS* DESIRABLE: <200 MG/DL <170 MG/DL BORDER-LINE HIGH RISK: 200-239 MG/DL 170-199 MG/DL HIGH RISK: >240 MG/DL >200 MG/DL CLASS. FOR PRIMARY LDL CHOL PREVENTION: LDL CHOL-CHILD/ADOLESCENTS* DESIRABLE: <130 MG/DL <110 MG/DL BORDERLINE-HIGH RISK: 130-159 MG/DL 110-129 MG/DL HIGH RISK: >160 MG/DL >130 MG/DL *CHILDREN AND ADOLESCENTS REPRESENTS INDIVIDUALA AGED 2-19 YEARS EXCLUSIVE. CHRONIC KIDNEY DISEASE STAGING PER NKF: MALE GFR INTERPRETATION: 20-49 YRS: >60 mL/min Normal 50-59 YRS: >56 mL/min Normal 60-69 YRS: >49 mL/min Normal 70-79 YRS: >42 mL/min Normal 80 and above >35 mL/min Normal FEMALE GRF INTERPRETATION: 20-39 YRS: >60 mL/min Normal 40-49 YRS: >58 mL/min Normal 50-59 YRS: >51 mL/min Normal 60-69 YRS: >45 mL/min Normal 70-79 YRS: >39 mL/min Normal 80 and above >32 mL/min NormalNORMAL RANGES Age WBC RBC HGB HCT MCV PLT Adult M 4.1-10.9 4.20-6.30 12.0-18.0 37.0-51.0 80-97 140-440 Adult F 4.1-10.9 4.04-5.48 12.0-18.0 37.0-51.0 80-97 140-440 0- 1 Yr 5.0-20.0 3.9-5.9 15-18 MV: 44 MV: 91 MV: 277 2-9 Yr. 6.0-17.0 3.8-5.4 11-13 MV: 37 MV: 78 MV: 300 10 Yrs. 5.0-13.0 3.8-5.4 12-15 MV: 39 MV: 80 MV: 250 NOTE: * FOR ADULT BLACK MALES AND FEMALES, NORMAL WBC IS 2.9-7.7 K/ML * FOR ADULT BLACK MALES AND FEMALES, NORMAL RBC,HGB, AND HCT IS 5% LESS SOURCE FOR DATA: CHERY[employer] DYN 1800 OPERATION MANUAL( AUTOMATED BLOOD COUNTS AND DIFF.) APPENDIX B-3 Chol 154 mg/dL 0-200 [facility] CLASSIFICATION CHOLESTEROL FO R ADULTS CHILDREN/ADOLESCENTS* DESIRABLE: <200 MG/DL <170 MG/DL BORDER-LINE HIGH RISK: 200-239 MG/DL 170-199 MG/DL HIGH RISK: >240 MG/DL >200 MG/DL CLASS. FOR PRIMARY LDL CHOL PREVENTION: LDL CHOL-CHILD/ADOLESCENTS* DESIRABLE: <130 MG/DL <110 MG/DL BORDERLINE-HIGH RISK: 130-159 MG/DL 110-129 MG/DL HIGH RISK: >160 MG/DL >130 MG/DL *CHILDREN AND ADOLESCENTS REPRESENTS INDIVIDUALA AGED 2-19 YEARS EXCLUSIVE. CHRONIC KIDNEY DISEASE STAGING PER NKF: MALE GFR INTERPRETATION: 20-49 YRS: >60 mL/min Normal 50-59 YRS: >56 mL/min Normal 60-69 YRS: >49 mL/min Normal 70-79 YRS: >42 mL/min Normal 80 and above >35 mL/min Normal FEMALE GRF INTERPRETATION: 20-39 YRS: >60 mL/min Normal 40-49 YRS: >58 mL/min Normal 50-59 YRS: >51 mL/min Normal 60-69 YRS: >45 mL/min Normal 70-79 YRS: >39 mL/min Normal 80 and above >32 mL/min NormalNORMAL RANGES Age WBC RBC HGB HCT MCV PLT Adult M 4.1-10.9 4.20-6.30 12.0-18.0 37.0-51.0 80-97 140-440 Adult F 4.1-10.9 4.04-5.48 12.0-18.0 37.0-51.0 80-97 140-440 0- 1 Yr 5.0-20.0 3.9-5.9 15-18 MV: 44 MV: 91 MV: 277 2-9 Yr. 6.0-17.0 3.8-5.4 11-13 MV: 37 MV: 78 MV: 300 10 Yrs. 5.0-13.0 3.8-5.4 12-15 MV: 39 MV: 80 MV: 250 NOTE: * FOR ADULT BLACK MALES AND FEMALES, NORMAL WBC IS 2.9-7.7 K/ML * FOR ADULT BLACK MALES AND FEMALES, NORMAL RBC,HGB, AND HCT IS 5% LESS SOURCE FOR DATA: [employer] 1800 OPERATION MANUAL( AUTOMATED BLOOD COUNTS AND DIFF.) APPENDIX B-3 Cho/HDL Ratio 2.8 CALC [facility] ([facility] CLASSIFICATION CHOLESTEROL FO R ADULTS CHILDREN/ADOLESCENTS* DESIRABLE: <200 MG/DL <170 MG/DL BORDER-LINE HIGH RISK: 200-239 MG/DL 170-199 MG/DL HIGH RISK: >240 MG/DL >200 MG/DL CLASS. FOR PRIMARY LDL CHOL PREVENTION: LDL CHOL-CHILD/ADOLESCENTS* DESIRABLE: <130 MG/DL <110 MG/DL BORDERLINE-HIGH RISK: 130-159 MG/DL 110-129 MG/DL HIGH RISK: >160 MG/DL >130 MG/DL *CHILDREN AND ADOLESCENTS REPRESENTS INDIVIDUALA AGED 2-19 YEARS EXCLUSIVE. CHRONIC KIDNEY DISEASE STAGING PER NKF: MALE GFR INTERPRETATION: 20-49 YRS: >60 mL/min Normal 50-59 YRS: >56 mL/min Normal 60-69 YRS: >49 mL/min Normal 70-79 YRS: >42 mL/min Normal 80 and above >35 mL/min Normal FEMALE GRF INTERPRETATION: 20-39 YRS: >60 mL/min Normal 40-49 YRS: >58 mL/min Normal 50-59 YRS: >51 mL/min Normal 60-69 YRS: >45 mL/min Normal 70-79 YRS: >39 mL/min Normal 80 and above >32 mL/min NormalNORMAL RANGES Age WBC RBC HGB HCT MCV PLT Adult M 4.1-10.9 4.20-6.30 12.0-18.0 37.0-51.0 80-97 140-440 Adult F 4.1-10.9 4.04-5.48 12.0-18.0 37.0-51.0 80-97 140-440 0- 1 Yr 5.0-20.0 3.9-5.9 15-18 MV: 44 MV: 91 MV: 277 2-9 Yr. 6.0-17.0 3.8-5.4 11-13 MV: 37 MV: 78 MV: 300 10 Yrs. 5.0-13.0 3.8-5.4 12-15 MV: 39 MV: 80 MV: 250 NOTE: * FOR ADULT BLACK MALES AND FEMALES, NORMAL WBC IS 2.9-7.7 K/ML * FOR ADULT BLACK MALES AND FEMALES, NORMAL RBC,HGB, AND HCT IS 5% LESS SOURCE FOR DATA: [employer] 1800 OPERATION MANUAL( AUTOMATED BLOOD COUNTS AND DIFF.) APPENDIX B-3 LDL_C 77 Calc 75-129 [facility] CLASSIFICATION CHOLESTEROL FO R ADULTS CHILDREN/ADOLESCENTS* DESIRABLE: <200 MG/DL <170 MG/DL BORDER-LINE HIGH RISK: 200-239 MG/DL 170-199 MG/DL HIGH RISK: >240 MG/DL >200 MG/DL CLASS. FOR PRIMARY LDL CHOL PREVENTION: LDL CHOL-CHILD/ADOLESCENTS* DESIRABLE: <130 MG/DL <110 MG/DL BORDERLINE-HIGH RISK: 130-159 MG/DL 110-129 MG/DL HIGH RISK: >160 MG/DL >130 MG/DL *CHILDREN AND ADOLESCENTS REPRESENTS INDIVIDUALA AGED 2-19 YEARS EXCLUSIVE. CHRONIC KIDNEY DISEASE STAGING PER NKF: MALE GFR INTERPRETATION: 20-49 YRS: >60 mL/min Normal 50-59 YRS: >56 mL/min Normal 60-69 YRS: >49 mL/min Normal 70-79 YRS: >42 mL/min Normal 80 and above >35 mL/min Normal FEMALE GRF INTERPRETATION: 20-39 YRS: >60 mL/min Normal 40-49 YRS: >58 mL/min Normal 50-59 YRS: >51 mL/min Normal 60-69 YRS: >45 mL/min Normal 70-79 YRS: >39 mL/min Normal 80 and above >32 mL/min NormalNORMAL RANGES Age WBC RBC HGB HCT MCV PLT Adult M 4.1-10.9 4.20-6.30 12.0-18.0 37.0-51.0 80-97 140-440 Adult F 4.1-10.9 4.04-5.48 12.0-18.0 37.0-51.0 80-97 140-440 0- 1 Yr 5.0-20.0 3.9-5.9 15-18 MV: 44 MV: 91 MV: 277 2-9 Yr. 6.0-17.0 3.8-5.4 11-13 MV: 37 MV: 78 MV: 300 10 Yrs. 5.0-13.0 3.8-5.4 12-15 MV: 39 MV: 80 MV: 250 NOTE: * FOR ADULT BLACK MALES AND FEMALES, NORMAL WBC IS 2.9-7.7 K/ML * FOR ADULT BLACK MALES AND FEMALES, NORMAL RBC,HGB, AND HCT IS 5% LESS SOURCE FOR DATA: [employer] DYN 1800 OPERATION MANUAL( AUTOMATED BLOOD COUNTS AND DIFF.) APPENDIX B-3 Cholesterol in HDL [Mass/volume] in Serum or Plasma 55 mg/dL 35-55 [facility] ([facility] CLASSIFICATION CHOLESTEROL FO R ADULTS CHILDREN/ADOLESCENTS* DESIRABLE: <200 MG/DL <170 MG/DL BORDER-LINE HIGH RISK: 200-239 MG/DL 170-199 MG/DL HIGH RISK: >240 MG/DL >200 MG/DL CLASS. FOR PRIMARY LDL CHOL PREVENTION: LDL CHOL-CHILD/ADOLESCENTS* DESIRABLE: <130 MG/DL <110 MG/DL BORDERLINE-HIGH RISK: 130-159 MG/DL 110-129 MG/DL HIGH RISK: >160 MG/DL >130 MG/DL *CHILDREN AND ADOLESCENTS REPRESENTS INDIVIDUALA AGED 2-19 YEARS EXCLUSIVE. CHRONIC KIDNEY DISEASE STAGING PER NKF: MALE GFR INTERPRETATION: 20-49 YRS: >60 mL/min Normal 50-59 YRS: >56 mL/min Normal 60-69 YRS: >49 mL/min Normal 70-79 YRS: >42 mL/min Normal 80 and above >35 mL/min Normal FEMALE GRF INTERPRETATION: 20-39 YRS: >60 mL/min Normal 40-49 YRS: >58 mL/min Normal 50-59 YRS: >51 mL/min Normal 60-69 YRS: >45 mL/min Normal 70-79 YRS: >39 mL/min Normal 80 and above >32 mL/min NormalNORMAL RANGES Age WBC RBC HGB HCT MCV PLT Adult M 4.1-10.9 4.20-6.30 12.0-18.0 37.0-51.0 80-97 140-440 Adult F 4.1-10.9 4.04-5.48 12.0-18.0 37.0-51.0 80-97 140-440 0- 1 Yr 5.0-20.0 3.9-5.9 15-18 MV: 44 MV: 91 MV: 277 2-9 Yr. 6.0-17.0 3.8-5.4 11-13 MV: 37 MV: 78 MV: 300 10 Yrs. 5.0-13.0 3.8-5.4 12-15 MV: 39 MV: 80 MV: 250 NOTE: * FOR ADULT BLACK MALES AND FEMALES, NORMAL WBC IS 2.9-7.7 K/ML * FOR ADULT BLACK MALES AND FEMALES, NORMAL RBC,HGB, AND HCT IS 5% LESS SOURCE FOR DATA: [employer] 1800 OPERATION MANUAL( AUTOMATED BLOOD COUNTS AND DIFF.) APPENDIX B-3 ID Date Data Source [id number] 12/02/2019 10:07:00 AM EDT [facility] ([facility] Name Value Range Interpretation Code Description Data Francoise rce(s) Supporting Document(s) Glu 106 mg/dL 70-110 [facility] ([facility] CLASSIFICATION CHOLESTEROL FO R ADULTS CHILDREN/ADOLESCENTS* DESIRABLE: <200 MG/DL <170 MG/DL BORDER-LINE HIGH RISK: 200-239 MG/DL 170-199 MG/DL HIGH RISK: >240 MG/DL >200 MG/DL CLASS. FOR PRIMARY LDL CHOL PREVENTION: LDL CHOL-CHILD/ADOLESCENTS* DESIRABLE: <130 MG/DL <110 MG/DL BORDERLINE-HIGH RISK: 130-159 MG/DL 110-129 MG/DL HIGH RISK: >160 MG/DL >130 MG/DL *CHILDREN AND ADOLESCENTS REPRESENTS INDIVIDUALA AGED 2-19 YEARS EXCLUSIVE. CHRONIC KIDNEY DISEASE STAGING PER NKF: MALE GFR INTERPRETATION: 20-49 YRS: >60 mL/min Normal 50-59 YRS: >56 mL/min Normal 60-69 YRS: >49 mL/min Normal 70-79 YRS: >42 mL/min Normal 80 and above >35 mL/min Normal FEMALE GRF INTERPRETATION: 20-39 YRS: >60 mL/min Normal 40-49 YRS: >58 mL/min Normal 50-59 YRS: >51 mL/min Normal 60-69 YRS: >45 mL/min Normal 70-79 YRS: >39 mL/min Normal 80 and above >32 mL/min NormalNORMAL RANGES Age WBC RBC HGB HCT MCV PLT Adult M 4.1-10.9 4.20-6.30 12.0-18.0 37.0-51.0 80-97 140-440 Adult F 4.1-10.9 4.04-5.48 12.0-18.0 37.0-51.0 80-97 140-440 0- 1 Yr 5.0-20.0 3.9-5.9 15-18 MV: 44 MV: 91 MV: 277 2-9 Yr. 6.0-17.0 3.8-5.4 11-13 MV: 37 MV: 78 MV: 300 10 Yrs. 5.0-13.0 3.8-5.4 12-15 MV: 39 MV: 80 MV: 250 NOTE: * FOR ADULT BLACK MALES AND FEMALES, NORMAL WBC IS 2.9-7.7 K/ML * FOR ADULT BLACK MALES AND FEMALES, NORMAL RBC,HGB, AND HCT IS 5% LESS SOURCE FOR DATA: CHERYL DYN 1800 OPERATION MANUAL( AUTOMATED BLOOD COUNTS AND DIFF.) APPENDIX B-3 Creat 1.0 mg/dL 0.7-1.2 [facility] CLASSIFICATION CHOLESTEROL FO R ADULTS CHILDREN/ADOLESCENTS* DESIRABLE: <200 MG/DL <170 MG/DL BORDER-LINE HIGH RISK: 200-239 MG/DL 170-199 MG/DL HIGH RISK: >240 MG/DL >200 MG/DL CLASS. FOR PRIMARY LDL CHOL PREVENTION: LDL CHOL-CHILD/ADOLESCENTS* DESIRABLE: <130 MG/DL <110 MG/DL BORDERLINE-HIGH RISK: 130-159 MG/DL 110-129 MG/DL HIGH RISK: >160 MG/DL >130 MG/DL *CHILDREN AND ADOLESCENTS REPRESENTS INDIVIDUALA AGED 2-19 YEARS EXCLUSIVE. CHRONIC KIDNEY DISEASE STAGING PER NKF: MALE GFR INTERPRETATION: 20-49 YRS: >60 mL/min Normal 50-59 YRS: >56 mL/min Normal 60-69 YRS: >49 mL/min Normal 70-79 YRS: >42 mL/min Normal 80 and above >35 mL/min Normal FEMALE GRF INTERPRETATION: 20-39 YRS: >60 mL/min Normal 40-49 YRS: >58 mL/min Normal 50-59 YRS: >51 mL/min Normal 60-69 YRS: >45 mL/min Normal 70-79 YRS: >39 mL/min Normal 80 and above >32 mL/min NormalNORMAL RANGES Age WBC RBC HGB HCT MCV PLT Adult M 4.1-10.9 4.20-6.30 12.0-18.0 37.0-51.0 80-97 140-440 Adult F 4.1-10.9 4.04-5.48 12.0-18.0 37.0-51.0 80-97 140-440 0- 1 Yr 5.0-20.0 3.9-5.9 15-18 MV: 44 MV: 91 MV: 277 2-9 Yr. 6.0-17.0 3.8-5.4 11-13 MV: 37 MV: 78 MV: 300 10 Yrs. 5.0-13.0 3.8-5.4 12-15 MV: 39 MV: 80 MV: 250 NOTE: * FOR ADULT BLACK MALES AND FEMALES, NORMAL WBC IS 2.9-7.7 K/ML * FOR ADULT BLACK MALES AND FEMALES, NORMAL RBC,HGB, AND HCT IS 5% LESS SOURCE FOR DATA: [employer] DYN 1800 OPERATION MANUAL( AUTOMATED BLOOD COUNTS AND DIFF.) APPENDIX B-3 BUN/Creatinine Ratio 13.4 CALC [facility] ([facility] CLASSIFICATION CHOLESTEROL FO R ADULTS CHILDREN/ADOLESCENTS* DESIRABLE: <200 MG/DL <170 MG/DL BORDER-LINE HIGH RISK: 200-239 MG/DL 170-199 MG/DL HIGH RISK: >240 MG/DL >200 MG/DL CLASS. FOR PRIMARY LDL CHOL PREVENTION: LDL CHOL-CHILD/ADOLESCENTS* DESIRABLE: <130 MG/DL <110 MG/DL BORDERLINE-HIGH RISK: 130-159 MG/DL 110-129 MG/DL HIGH RISK: >160 MG/DL >130 MG/DL *CHILDREN AND ADOLESCENTS REPRESENTS INDIVIDUALA AGED 2-19 YEARS EXCLUSIVE. CHRONIC KIDNEY DISEASE STAGING PER NKF: MALE GFR INTERPRETATION: 20-49 YRS: >60 mL/min Normal 50-59 YRS: >56 mL/min Normal 60-69 YRS: >49 mL/min Normal 70-79 YRS: >42 mL/min Normal 80 and above >35 mL/min Normal FEMALE GRF INTERPRETATION: 20-39 YRS: >60 mL/min Normal 40-49 YRS: >58 mL/min Normal 50-59 YRS: >51 mL/min Normal 60-69 YRS: >45 mL/min Normal 70-79 YRS: >39 mL/min Normal 80 and above >32 mL/min NormalNORMAL RANGES Age WBC RBC HGB HCT MCV PLT Adult M 4.1-10.9 4.20-6.30 12.0-18.0 37.0-51.0 80-97 140-440 Adult F 4.1-10.9 4.04-5.48 12.0-18.0 37.0-51.0 80-97 140-440 0- 1 Yr 5.0-20.0 3.9-5.9 15-18 MV: 44 MV: 91 MV: 277 2-9 Yr. 6.0-17.0 3.8-5.4 11-13 MV: 37 MV: 78 MV: 300 10 Yrs. 5.0-13.0 3.8-5.4 12-15 MV: 39 MV: 80 MV: 250 NOTE: * FOR ADULT BLACK MALES AND FEMALES, NORMAL WBC IS 2.9-7.7 K/ML * FOR ADULT BLACK MALES AND FEMALES, NORMAL RBC,HGB, AND HCT IS 5% LESS SOURCE FOR DATA: [employer] 1800 OPERATION MANUAL( AUTOMATED BLOOD COUNTS AND DIFF.) APPENDIX B-3 BUN 14 mg/dL 8-23 [facility] CLASSIFICATION CHOLESTEROL FO R ADULTS CHILDREN/ADOLESCENTS* DESIRABLE: <200 MG/DL <170 MG/DL BORDER-LINE HIGH RISK: 200-239 MG/DL 170-199 MG/DL HIGH RISK: >240 MG/DL >200 MG/DL CLASS. FOR PRIMARY LDL CHOL PREVENTION: LDL CHOL-CHILD/ADOLESCENTS* DESIRABLE: <130 MG/DL <110 MG/DL BORDERLINE-HIGH RISK: 130-159 MG/DL 110-129 MG/DL HIGH RISK: >160 MG/DL >130 MG/DL *CHILDREN AND ADOLESCENTS REPRESENTS INDIVIDUALA AGED 2-19 YEARS EXCLUSIVE. CHRONIC KIDNEY DISEASE STAGING PER NKF: MALE GFR INTERPRETATION: 20-49 YRS: >60 mL/min Normal 50-59 YRS: >56 mL/min Normal 60-69 YRS: >49 mL/min Normal 70-79 YRS: >42 mL/min Normal 80 and above >35 mL/min Normal FEMALE GRF INTERPRETATION: 20-39 YRS: >60 mL/min Normal 40-49 YRS: >58 mL/min Normal 50-59 YRS: >51 mL/min Normal 60-69 YRS: >45 mL/min Normal 70-79 YRS: >39 mL/min Normal 80 and above >32 mL/min NormalNORMAL RANGES Age WBC RBC HGB HCT MCV PLT Adult M 4.1-10.9 4.20-6.30 12.0-18.0 37.0-51.0 80-97 140-440 Adult F 4.1-10.9 4.04-5.48 12.0-18.0 37.0-51.0 80-97 140-440 0- 1 Yr 5.0-20.0 3.9-5.9 15-18 MV: 44 MV: 91 MV: 277 2-9 Yr. 6.0-17.0 3.8-5.4 11-13 MV: 37 MV: 78 MV: 300 10 Yrs. 5.0-13.0 3.8-5.4 12-15 MV: 39 MV: 80 MV: 250 NOTE: * FOR ADULT BLACK MALES AND FEMALES, NORMAL WBC IS 2.9-7.7 K/ML * FOR ADULT BLACK MALES AND FEMALES, NORMAL RBC,HGB, AND HCT IS 5% LESS SOURCE FOR DATA: [employer]YN 1800 OPERATION MANUAL( AUTOMATED BLOOD COUNTS AND DIFF.) APPENDIX B-3 K 4.1 mmol/L 3.5-5.1 [facility] ([facility] CLASSIFICATION CHOLESTEROL FO R ADULTS CHILDREN/ADOLESCENTS* DESIRABLE: <200 MG/DL <170 MG/DL BORDER-LINE HIGH RISK: 200-239 MG/DL 170-199 MG/DL HIGH RISK: >240 MG/DL >200 MG/DL CLASS. FOR PRIMARY LDL CHOL PREVENTION: LDL CHOL-CHILD/ADOLESCENTS* DESIRABLE: <130 MG/DL <110 MG/DL BORDERLINE-HIGH RISK: 130-159 MG/DL 110-129 MG/DL HIGH RISK: >160 MG/DL >130 MG/DL *CHILDREN AND ADOLESCENTS REPRESENTS INDIVIDUALA AGED 2-19 YEARS EXCLUSIVE. CHRONIC KIDNEY DISEASE STAGING PER NKF: MALE GFR INTERPRETATION: 20-49 YRS: >60 mL/min Normal 50-59 YRS: >56 mL/min Normal 60-69 YRS: >49 mL/min Normal 70-79 YRS: >42 mL/min Normal 80 and above >35 mL/min Normal FEMALE GRF INTERPRETATION: 20-39 YRS: >60 mL/min Normal 40-49 YRS: >58 mL/min Normal 50-59 YRS: >51 mL/min Normal 60-69 YRS: >45 mL/min Normal 70-79 YRS: >39 mL/min Normal 80 and above >32 mL/min NormalNORMAL RANGES Age WBC RBC HGB HCT MCV PLT Adult M 4.1-10.9 4.20-6.30 12.0-18.0 37.0-51.0 80-97 140-440 Adult F 4.1-10.9 4.04-5.48 12.0-18.0 37.0-51.0 80-97 140-440 0- 1 Yr 5.0-20.0 3.9-5.9 15-18 MV: 44 MV: 91 MV: 277 2-9 Yr. 6.0-17.0 3.8-5.4 11-13 MV: 37 MV: 78 MV: 300 10 Yrs. 5.0-13.0 3.8-5.4 12-15 MV: 39 MV: 80 MV: 250 NOTE: * FOR ADULT BLACK MALES AND FEMALES, NORMAL WBC IS 2.9-7.7 K/ML * FOR ADULT BLACK MALES AND FEMALES, NORMAL RBC,HGB, AND HCT IS 5% LESS SOURCE FOR DATA: [employer] DYN 1800 OPERATION MANUAL( AUTOMATED BLOOD COUNTS AND DIFF.) APPENDIX B-3 CL 100.9 mmol/L 98.0-107.0 [facility] ([facility] CLASSIFICATION CHOLESTEROL FO R ADULTS CHILDREN/ADOLESCENTS* DESIRABLE: <200 MG/DL <170 MG/DL BORDER-LINE HIGH RISK: 200-239 MG/DL 170-199 MG/DL HIGH RISK: >240 MG/DL >200 MG/DL CLASS. FOR PRIMARY LDL CHOL PREVENTION: LDL CHOL-CHILD/ADOLESCENTS* DESIRABLE: <130 MG/DL <110 MG/DL BORDERLINE-HIGH RISK: 130-159 MG/DL 110-129 MG/DL HIGH RISK: >160 MG/DL >130 MG/DL *CHILDREN AND ADOLESCENTS REPRESENTS INDIVIDUALA AGED 2-19 YEARS EXCLUSIVE. CHRONIC KIDNEY DISEASE STAGING PER NKF: MALE GFR INTERPRETATION: 20-49 YRS: >60 mL/min Normal 50-59 YRS: >56 mL/min Normal 60-69 YRS: >49 mL/min Normal 70-79 YRS: >42 mL/min Normal 80 and above >35 mL/min Normal FEMALE GRF INTERPRETATION: 20-39 YRS: >60 mL/min Normal 40-49 YRS: >58 mL/min Normal 50-59 YRS: >51 mL/min Normal 60-69 YRS: >45 mL/min Normal 70-79 YRS: >39 mL/min Normal 80 and above >32 mL/min NormalNORMAL RANGES Age WBC RBC HGB HCT MCV PLT Adult M 4.1-10.9 4.20-6.30 12.0-18.0 37.0-51.0 80-97 140-440 Adult F 4.1-10.9 4.04-5.48 12.0-18.0 37.0-51.0 80-97 140-440 0- 1 Yr 5.0-20.0 3.9-5.9 15-18 MV: 44 MV: 91 MV: 277 2-9 Yr. 6.0-17.0 3.8-5.4 11-13 MV: 37 MV: 78 MV: 300 10 Yrs. 5.0-13.0 3.8-5.4 12-15 MV: 39 MV: 80 MV: 250 NOTE: * FOR ADULT BLACK MALES AND FEMALES, NORMAL WBC IS 2.9-7.7 K/ML * FOR ADULT BLACK MALES AND FEMALES, NORMAL RBC,HGB, AND HCT IS 5% LESS SOURCE FOR DATA: [employer]YN 1800 OPERATION MANUAL( AUTOMATED BLOOD COUNTS AND DIFF.) APPENDIX B-3 Na 140 mmol/L 136-145 [facility] CLASSIFICATION CHOLESTEROL FO R ADULTS CHILDREN/ADOLESCENTS* DESIRABLE: <200 MG/DL <170 MG/DL BORDER-LINE HIGH RISK: 200-239 MG/DL 170-199 MG/DL HIGH RISK: >240 MG/DL >200 MG/DL CLASS. FOR PRIMARY LDL CHOL PREVENTION: LDL CHOL-CHILD/ADOLESCENTS* DESIRABLE: <130 MG/DL <110 MG/DL BORDERLINE-HIGH RISK: 130-159 MG/DL 110-129 MG/DL HIGH RISK: >160 MG/DL >130 MG/DL *CHILDREN AND ADOLESCENTS REPRESENTS INDIVIDUALA AGED 2-19 YEARS EXCLUSIVE. CHRONIC KIDNEY DISEASE STAGING PER NKF: MALE GFR INTERPRETATION: 20-49 YRS: >60 mL/min Normal 50-59 YRS: >56 mL/min Normal 60-69 YRS: >49 mL/min Normal 70-79 YRS: >42 mL/min Normal 80 and above >35 mL/min Normal FEMALE GRF INTERPRETATION: 20-39 YRS: >60 mL/min Normal 40-49 YRS: >58 mL/min Normal 50-59 YRS: >51 mL/min Normal 60-69 YRS: >45 mL/min Normal 70-79 YRS: >39 mL/min Normal 80 and above >32 mL/min NormalNORMAL RANGES Age WBC RBC HGB HCT MCV PLT Adult M 4.1-10.9 4.20-6.30 12.0-18.0 37.0-51.0 80-97 140-440 Adult F 4.1-10.9 4.04-5.48 12.0-18.0 37.0-51.0 80-97 140-440 0- 1 Yr 5.0-20.0 3.9-5.9 15-18 MV: 44 MV: 91 MV: 277 2-9 Yr. 6.0-17.0 3.8-5.4 11-13 MV: 37 MV: 78 MV: 300 10 Yrs. 5.0-13.0 3.8-5.4 12-15 MV: 39 MV: 80 MV: 250 NOTE: * FOR ADULT BLACK MALES AND FEMALES, NORMAL WBC IS 2.9-7.7 K/ML * FOR ADULT BLACK MALES AND FEMALES, NORMAL RBC,HGB, AND HCT IS 5% LESS SOURCE FOR DATA: [employer]YN 1800 OPERATION MANUAL( AUTOMATED BLOOD COUNTS AND DIFF.) APPENDIX B-3 Co2 25.7 mmol/L 22.0-29.0 [employer] ([facility] CLASSIFICATION CHOLESTEROL FO R ADULTS CHILDREN/ADOLESCENTS* DESIRABLE: <200 MG/DL <170 MG/DL BORDER-LINE HIGH RISK: 200-239 MG/DL 170-199 MG/DL HIGH RISK: >240 MG/DL >200 MG/DL CLASS. FOR PRIMARY LDL CHOL PREVENTION: LDL CHOL-CHILD/ADOLESCENTS* DESIRABLE: <130 MG/DL <110 MG/DL BORDERLINE-HIGH RISK: 130-159 MG/DL 110-129 MG/DL HIGH RISK: >160 MG/DL >130 MG/DL *CHILDREN AND ADOLESCENTS REPRESENTS INDIVIDUALA AGED 2-19 YEARS EXCLUSIVE. CHRONIC KIDNEY DISEASE STAGING PER NKF: MALE GFR INTERPRETATION: 20-49 YRS: >60 mL/min Normal 50-59 YRS: >56 mL/min Normal 60-69 YRS: >49 mL/min Normal 70-79 YRS: >42 mL/min Normal 80 and above >35 mL/min Normal FEMALE GRF INTERPRETATION: 20-39 YRS: >60 mL/min Normal 40-49 YRS: >58 mL/min Normal 50-59 YRS: >51 mL/min Normal 60-69 YRS: >45 mL/min Normal 70-79 YRS: >39 mL/min Normal 80 and above >32 mL/min NormalNORMAL RANGES Age WBC RBC HGB HCT MCV PLT Adult M 4.1-10.9 4.20-6.30 12.0-18.0 37.0-51.0 80-97 140-440 Adult F 4.1-10.9 4.04-5.48 12.0-18.0 37.0-51.0 80-97 140-440 0- 1 Yr 5.0-20.0 3.9-5.9 15-18 MV: 44 MV: 91 MV: 277 2-9 Yr. 6.0-17.0 3.8-5.4 11-13 MV: 37 MV: 78 MV: 300 10 Yrs. 5.0-13.0 3.8-5.4 12-15 MV: 39 MV: 80 MV: 250 NOTE: * FOR ADULT BLACK MALES AND FEMALES, NORMAL WBC IS 2.9-7.7 K/ML * FOR ADULT BLACK MALES AND FEMALES, NORMAL RBC,HGB, AND HCT IS 5% LESS SOURCE FOR DATA: [employer] 1800 OPERATION MANUAL( AUTOMATED BLOOD COUNTS AND DIFF.) APPENDIX B-3 TP 7.3 g/dL 6.6-8.7 [facility] ([facility] CLASSIFICATION CHOLESTEROL FO R ADULTS CHILDREN/ADOLESCENTS* DESIRABLE: <200 MG/DL <170 MG/DL BORDER-LINE HIGH RISK: 200-239 MG/DL 170-199 MG/DL HIGH RISK: >240 MG/DL >200 MG/DL CLASS. FOR PRIMARY LDL CHOL PREVENTION: LDL CHOL-CHILD/ADOLESCENTS* DESIRABLE: <130 MG/DL <110 MG/DL BORDERLINE-HIGH RISK: 130-159 MG/DL 110-129 MG/DL HIGH RISK: >160 MG/DL >130 MG/DL *CHILDREN AND ADOLESCENTS REPRESENTS INDIVIDUALA AGED 2-19 YEARS EXCLUSIVE. CHRONIC KIDNEY DISEASE STAGING PER NKF: MALE GFR INTERPRETATION: 20-49 YRS: >60 mL/min Normal 50-59 YRS: >56 mL/min Normal 60-69 YRS: >49 mL/min Normal 70-79 YRS: >42 mL/min Normal 80 and above >35 mL/min Normal FEMALE GRF INTERPRETATION: 20-39 YRS: >60 mL/min Normal 40-49 YRS: >58 mL/min Normal 50-59 YRS: >51 mL/min Normal 60-69 YRS: >45 mL/min Normal 70-79 YRS: >39 mL/min Normal 80 and above >32 mL/min NormalNORMAL RANGES Age WBC RBC HGB HCT MCV PLT Adult M 4.1-10.9 4.20-6.30 12.0-18.0 37.0-51.0 80-97 140-440 Adult F 4.1-10.9 4.04-5.48 12.0-18.0 37.0-51.0 80-97 140-440 0- 1 Yr 5.0-20.0 3.9-5.9 15-18 MV: 44 MV: 91 MV: 277 2-9 Yr. 6.0-17.0 3.8-5.4 11-13 MV: 37 MV: 78 MV: 300 10 Yrs. 5.0-13.0 3.8-5.4 12-15 MV: 39 MV: 80 MV: 250 NOTE: * FOR ADULT BLACK MALES AND FEMALES, NORMAL WBC IS 2.9-7.7 K/ML * FOR ADULT BLACK MALES AND FEMALES, NORMAL RBC,HGB, AND HCT IS 5% LESS SOURCE FOR DATA: [employer] 1800 OPERATION MANUAL( AUTOMATED BLOOD COUNTS AND DIFF.) APPENDIX B-3 CA 10.3 mg/dL 8.6-10.2 Above high normal [facility] ([facility] CLASSIFICATION CHOLESTEROL FO R ADULTS CHILDREN/ADOLESCENTS* DESIRABLE: <200 MG/DL <170 MG/DL BORDER-LINE HIGH RISK: 200-239 MG/DL 170-199 MG/DL HIGH RISK: >240 MG/DL >200 MG/DL CLASS. FOR PRIMARY LDL CHOL PREVENTION: LDL CHOL-CHILD/ADOLESCENTS* DESIRABLE: <130 MG/DL <110 MG/DL BORDERLINE-HIGH RISK: 130-159 MG/DL 110-129 MG/DL HIGH RISK: >160 MG/DL >130 MG/DL *CHILDREN AND ADOLESCENTS REPRESENTS INDIVIDUALA AGED 2-19 YEARS EXCLUSIVE. CHRONIC KIDNEY DISEASE STAGING PER NKF: MALE GFR INTERPRETATION: 20-49 YRS: >60 mL/min Normal 50-59 YRS: >56 mL/min Normal 60-69 YRS: >49 mL/min Normal 70-79 YRS: >42 mL/min Normal 80 and above >35 mL/min Normal FEMALE GRF INTERPRETATION: 20-39 YRS: >60 mL/min Normal 40-49 YRS: >58 mL/min Normal 50-59 YRS: >51 mL/min Normal 60-69 YRS: >45 mL/min Normal 70-79 YRS: >39 mL/min Normal 80 and above >32 mL/min NormalNORMAL RANGES Age WBC RBC HGB HCT MCV PLT Adult M 4.1-10.9 4.20-6.30 12.0-18.0 37.0-51.0 80-97 140-440 Adult F 4.1-10.9 4.04-5.48 12.0-18.0 37.0-51.0 80-97 140-440 0- 1 Yr 5.0-20.0 3.9-5.9 15-18 MV: 44 MV: 91 MV: 277 2-9 Yr. 6.0-17.0 3.8-5.4 11-13 MV: 37 MV: 78 MV: 300 10 Yrs. 5.0-13.0 3.8-5.4 12-15 MV: 39 MV: 80 MV: 250 NOTE: * FOR ADULT BLACK MALES AND FEMALES, NORMAL WBC IS 2.9-7.7 K/ML * FOR ADULT BLACK MALES AND FEMALES, NORMAL RBC,HGB, AND HCT IS 5% LESS SOURCE FOR DATA: [employer] 1800 OPERATION MANUAL( AUTOMATED BLOOD COUNTS AND DIFF.) APPENDIX B-3 A/G Ratio 2.3 CALC [facility] ([facility] CLASSIFICATION CHOLESTEROL FO R ADULTS CHILDREN/ADOLESCENTS* DESIRABLE: <200 MG/DL <170 MG/DL BORDER-LINE HIGH RISK: 200-239 MG/DL 170-199 MG/DL HIGH RISK: >240 MG/DL >200 MG/DL CLASS. FOR PRIMARY LDL CHOL PREVENTION: LDL CHOL-CHILD/ADOLESCENTS* DESIRABLE: <130 MG/DL <110 MG/DL BORDERLINE-HIGH RISK: 130-159 MG/DL 110-129 MG/DL HIGH RISK: >160 MG/DL >130 MG/DL *CHILDREN AND ADOLESCENTS REPRESENTS INDIVIDUALA AGED 2-19 YEARS EXCLUSIVE. CHRONIC KIDNEY DISEASE STAGING PER NKF: MALE GFR INTERPRETATION: 20-49 YRS: >60 mL/min Normal 50-59 YRS: >56 mL/min Normal 60-69 YRS: >49 mL/min Normal 70-79 YRS: >42 mL/min Normal 80 and above >35 mL/min Normal FEMALE GRF INTERPRETATION: 20-39 YRS: >60 mL/min Normal 40-49 YRS: >58 mL/min Normal 50-59 YRS: >51 mL/min Normal 60-69 YRS: >45 mL/min Normal 70-79 YRS: >39 mL/min Normal 80 and above >32 mL/min NormalNORMAL RANGES Age WBC RBC HGB HCT MCV PLT Adult M 4.1-10.9 4.20-6.30 12.0-18.0 37.0-51.0 80-97 140-440 Adult F 4.1-10.9 4.04-5.48 12.0-18.0 37.0-51.0 80-97 140-440 0- 1 Yr 5.0-20.0 3.9-5.9 15-18 MV: 44 MV: 91 MV: 277 2-9 Yr. 6.0-17.0 3.8-5.4 11-13 MV: 37 MV: 78 MV: 300 10 Yrs. 5.0-13.0 3.8-5.4 12-15 MV: 39 MV: 80 MV: 250 NOTE: * FOR ADULT BLACK MALES AND FEMALES, NORMAL WBC IS 2.9-7.7 K/ML * FOR ADULT BLACK MALES AND FEMALES, NORMAL RBC,HGB, AND HCT IS 5% LESS SOURCE FOR DATA: [employer]YN 1800 OPERATION MANUAL( AUTOMATED BLOOD COUNTS AND DIFF.) APPENDIX B-3 Globulin 2.2 CALC [facility] CLASSIFICATION CHOLESTEROL FO R ADULTS CHILDREN/ADOLESCENTS* DESIRABLE: <200 MG/DL <170 MG/DL BORDER-LINE HIGH RISK: 200-239 MG/DL 170-199 MG/DL HIGH RISK: >240 MG/DL >200 MG/DL CLASS. FOR PRIMARY LDL CHOL PREVENTION: LDL CHOL-CHILD/ADOLESCENTS* DESIRABLE: <130 MG/DL <110 MG/DL BORDERLINE-HIGH RISK: 130-159 MG/DL 110-129 MG/DL HIGH RISK: >160 MG/DL >130 MG/DL *CHILDREN AND ADOLESCENTS REPRESENTS INDIVIDUALA AGED 2-19 YEARS EXCLUSIVE. CHRONIC KIDNEY DISEASE STAGING PER NKF: MALE GFR INTERPRETATION: 20-49 YRS: >60 mL/min Normal 50-59 YRS: >56 mL/min Normal 60-69 YRS: >49 mL/min Normal 70-79 YRS: >42 mL/min Normal 80 and above >35 mL/min Normal FEMALE GRF INTERPRETATION: 20-39 YRS: >60 mL/min Normal 40-49 YRS: >58 mL/min Normal 50-59 YRS: >51 mL/min Normal 60-69 YRS: >45 mL/min Normal 70-79 YRS: >39 mL/min Normal 80 and above >32 mL/min NormalNORMAL RANGES Age WBC RBC HGB HCT MCV PLT Adult M 4.1-10.9 4.20-6.30 12.0-18.0 37.0-51.0 80-97 140-440 Adult F 4.1-10.9 4.04-5.48 12.0-18.0 37.0-51.0 80-97 140-440 0- 1 Yr 5.0-20.0 3.9-5.9 15-18 MV: 44 MV: 91 MV: 277 2-9 Yr. 6.0-17.0 3.8-5.4 11-13 MV: 37 MV: 78 MV: 300 10 Yrs. 5.0-13.0 3.8-5.4 12-15 MV: 39 MV: 80 MV: 250 NOTE: * FOR ADULT BLACK MALES AND FEMALES, NORMAL WBC IS 2.9-7.7 K/ML * FOR ADULT BLACK MALES AND FEMALES, NORMAL RBC,HGB, AND HCT IS 5% LESS SOURCE FOR DATA: [employer] 1800 OPERATION MANUAL( AUTOMATED BLOOD COUNTS AND DIFF.) APPENDIX B-3 Alb 5.1 g/dL 3.5-5.2 [facility] ([facility] CLASSIFICATION CHOLESTEROL FO R ADULTS CHILDREN/ADOLESCENTS* DESIRABLE: <200 MG/DL <170 MG/DL BORDER-LINE HIGH RISK: 200-239 MG/DL 170-199 MG/DL HIGH RISK: >240 MG/DL >200 MG/DL CLASS. FOR PRIMARY LDL CHOL PREVENTION: LDL CHOL-CHILD/ADOLESCENTS* DESIRABLE: <130 MG/DL <110 MG/DL BORDERLINE-HIGH RISK: 130-159 MG/DL 110-129 MG/DL HIGH RISK: >160 MG/DL >130 MG/DL *CHILDREN AND ADOLESCENTS REPRESENTS INDIVIDUALA AGED 2-19 YEARS EXCLUSIVE. CHRONIC KIDNEY DISEASE STAGING PER NKF: MALE GFR INTERPRETATION: 20-49 YRS: >60 mL/min Normal 50-59 YRS: >56 mL/min Normal 60-69 YRS: >49 mL/min Normal 70-79 YRS: >42 mL/min Normal 80 and above >35 mL/min Normal FEMALE GRF INTERPRETATION: 20-39 YRS: >60 mL/min Normal 40-49 YRS: >58 mL/min Normal 50-59 YRS: >51 mL/min Normal 60-69 YRS: >45 mL/min Normal 70-79 YRS: >39 mL/min Normal 80 and above >32 mL/min NormalNORMAL RANGES Age WBC RBC HGB HCT MCV PLT Adult M 4.1-10.9 4.20-6.30 12.0-18.0 37.0-51.0 80-97 140-440 Adult F 4.1-10.9 4.04-5.48 12.0-18.0 37.0-51.0 80-97 140-440 0- 1 Yr 5.0-20.0 3.9-5.9 15-18 MV: 44 MV: 91 MV: 277 2-9 Yr. 6.0-17.0 3.8-5.4 11-13 MV: 37 MV: 78 MV: 300 10 Yrs. 5.0-13.0 3.8-5.4 12-15 MV: 39 MV: 80 MV: 250 NOTE: * FOR ADULT BLACK MALES AND FEMALES, NORMAL WBC IS 2.9-7.7 K/ML * FOR ADULT BLACK MALES AND FEMALES, NORMAL RBC,HGB, AND HCT IS 5% LESS SOURCE FOR DATA: [employer]YN 1800 OPERATION MANUAL( AUTOMATED BLOOD COUNTS AND DIFF.) APPENDIX B-3 Ast (Sgot) 28 U/L 0-40 [facility] ([facility] CLASSIFICATION CHOLESTEROL FO R ADULTS CHILDREN/ADOLESCENTS* DESIRABLE: <200 MG/DL <170 MG/DL BORDER-LINE HIGH RISK: 200-239 MG/DL 170-199 MG/DL HIGH RISK: >240 MG/DL >200 MG/DL CLASS. FOR PRIMARY LDL CHOL PREVENTION: LDL CHOL-CHILD/ADOLESCENTS* DESIRABLE: <130 MG/DL <110 MG/DL BORDERLINE-HIGH RISK: 130-159 MG/DL 110-129 MG/DL HIGH RISK: >160 MG/DL >130 MG/DL *CHILDREN AND ADOLESCENTS REPRESENTS INDIVIDUALA AGED 2-19 YEARS EXCLUSIVE. CHRONIC KIDNEY DISEASE STAGING PER NKF: MALE GFR INTERPRETATION: 20-49 YRS: >60 mL/min Normal 50-59 YRS: >56 mL/min Normal 60-69 YRS: >49 mL/min Normal 70-79 YRS: >42 mL/min Normal 80 and above >35 mL/min Normal FEMALE GRF INTERPRETATION: 20-39 YRS: >60 mL/min Normal 40-49 YRS: >58 mL/min Normal 50-59 YRS: >51 mL/min Normal 60-69 YRS: >45 mL/min Normal 70-79 YRS: >39 mL/min Normal 80 and above >32 mL/min NormalNORMAL RANGES Age WBC RBC HGB HCT MCV PLT Adult M 4.1-10.9 4.20-6.30 12.0-18.0 37.0-51.0 80-97 140-440 Adult F 4.1-10.9 4.04-5.48 12.0-18.0 37.0-51.0 80-97 140-440 0- 1 Yr 5.0-20.0 3.9-5.9 15-18 MV: 44 MV: 91 MV: 277 2-9 Yr. 6.0-17.0 3.8-5.4 11-13 MV: 37 MV: 78 MV: 300 10 Yrs. 5.0-13.0 3.8-5.4 12-15 MV: 39 MV: 80 MV: 250 NOTE: * FOR ADULT BLACK MALES AND FEMALES, NORMAL WBC IS 2.9-7.7 K/ML * FOR ADULT BLACK MALES AND FEMALES, NORMAL RBC,HGB, AND HCT IS 5% LESS SOURCE FOR DATA: [facility] [facility] 1800 OPERATION MANUAL( AUTOMATED BLOOD COUNTS AND DIFF.) APPENDIX B-3 Alp 59.7 U/L 40-129 [facility] CLASSIFICATION CHOLESTEROL FO R ADULTS CHILDREN/ADOLESCENTS* DESIRABLE: <200 MG/DL <170 MG/DL BORDER-LINE HIGH RISK: 200-239 MG/DL 170-199 MG/DL HIGH RISK: >240 MG/DL >200 MG/DL CLASS. FOR PRIMARY LDL CHOL PREVENTION: LDL CHOL-CHILD/ADOLESCENTS* DESIRABLE: <130 MG/DL <110 MG/DL BORDERLINE-HIGH RISK: 130-159 MG/DL 110-129 MG/DL HIGH RISK: >160 MG/DL >130 MG/DL *CHILDREN AND ADOLESCENTS REPRESENTS INDIVIDUALA AGED 2-19 YEARS EXCLUSIVE. CHRONIC KIDNEY DISEASE STAGING PER NKF: MALE GFR INTERPRETATION: 20-49 YRS: >60 mL/min Normal 50-59 YRS: >56 mL/min Normal 60-69 YRS: >49 mL/min Normal 70-79 YRS: >42 mL/min Normal 80 and above >35 mL/min Normal FEMALE GRF INTERPRETATION: 20-39 YRS: >60 mL/min Normal 40-49 YRS: >58 mL/min Normal 50-59 YRS: >51 mL/min Normal 60-69 YRS: >45 mL/min Normal 70-79 YRS: >39 mL/min Normal 80 and above >32 mL/min NormalNORMAL RANGES Age WBC RBC HGB HCT MCV PLT Adult M 4.1-10.9 4.20-6.30 12.0-18.0 37.0-51.0 80-97 140-440 Adult F 4.1-10.9 4.04-5.48 12.0-18.0 37.0-51.0 80-97 140-440 0- 1 Yr 5.0-20.0 3.9-5.9 15-18 MV: 44 MV: 91 MV: 277 2-9 Yr. 6.0-17.0 3.8-5.4 11-13 MV: 37 MV: 78 MV: 300 10 Yrs. 5.0-13.0 3.8-5.4 12-15 MV: 39 MV: 80 MV: 250 NOTE: * FOR ADULT BLACK MALES AND FEMALES, NORMAL WBC IS 2.9-7.7 K/ML * FOR ADULT BLACK MALES AND FEMALES, NORMAL RBC,HGB, AND HCT IS 5% LESS SOURCE FOR DATA: [facility] 1800 OPERATION MANUAL( AUTOMATED BLOOD COUNTS AND DIFF.) APPENDIX B-3 Alt (SGPT) 28 U/L 0-41 [facility] CLASSIFICATION CHOLESTEROL FO R ADULTS CHILDREN/ADOLESCENTS* DESIRABLE: <200 MG/DL <170 MG/DL BORDER-LINE HIGH RISK: 200-239 MG/DL 170-199 MG/DL HIGH RISK: >240 MG/DL >200 MG/DL CLASS. FOR PRIMARY LDL CHOL PREVENTION: LDL CHOL-CHILD/ADOLESCENTS* DESIRABLE: <130 MG/DL <110 MG/DL BORDERLINE-HIGH RISK: 130-159 MG/DL 110-129 MG/DL HIGH RISK: >160 MG/DL >130 MG/DL *CHILDREN AND ADOLESCENTS REPRESENTS INDIVIDUALA AGED 2-19 YEARS EXCLUSIVE. CHRONIC KIDNEY DISEASE STAGING PER NKF: MALE GFR INTERPRETATION: 20-49 YRS: >60 mL/min Normal 50-59 YRS: >56 mL/min Normal 60-69 YRS: >49 mL/min Normal 70-79 YRS: >42 mL/min Normal 80 and above >35 mL/min Normal FEMALE GRF INTERPRETATION: 20-39 YRS: >60 mL/min Normal 40-49 YRS: >58 mL/min Normal 50-59 YRS: >51 mL/min Normal 60-69 YRS: >45 mL/min Normal 70-79 YRS: >39 mL/min Normal 80 and above >32 mL/min NormalNORMAL RANGES Age WBC RBC HGB HCT MCV PLT Adult M 4.1-10.9 4.20-6.30 12.0-18.0 37.0-51.0 80-97 140-440 Adult F 4.1-10.9 4.04-5.48 12.0-18.0 37.0-51.0 80-97 140-440 0- 1 Yr 5.0-20.0 3.9-5.9 15-18 MV: 44 MV: 91 MV: 277 2-9 Yr. 6.0-17.0 3.8-5.4 11-13 MV: 37 MV: 78 MV: 300 10 Yrs. 5.0-13.0 3.8-5.4 12-15 MV: 39 MV: 80 MV: 250 NOTE: * FOR ADULT BLACK MALES AND FEMALES, NORMAL WBC IS 2.9-7.7 K/ML * FOR ADULT BLACK MALES AND FEMALES, NORMAL RBC,HGB, AND HCT IS 5% LESS SOURCE FOR DATA: [employer] [facility] 1800 OPERATION MANUAL( AUTOMATED BLOOD COUNTS AND DIFF.) APPENDIX B-3 Tbili 0.54 mg/dL 0.0-1.2 [facility] CLASSIFICATION CHOLESTEROL FO R ADULTS CHILDREN/ADOLESCENTS* DESIRABLE: <200 MG/DL <170 MG/DL BORDER-LINE HIGH RISK: 200-239 MG/DL 170-199 MG/DL HIGH RISK: >240 MG/DL >200 MG/DL CLASS. FOR PRIMARY LDL CHOL PREVENTION: LDL CHOL-CHILD/ADOLESCENTS* DESIRABLE: <130 MG/DL <110 MG/DL BORDERLINE-HIGH RISK: 130-159 MG/DL 110-129 MG/DL HIGH RISK: >160 MG/DL >130 MG/DL *CHILDREN AND ADOLESCENTS REPRESENTS INDIVIDUALA AGED 2-19 YEARS EXCLUSIVE. CHRONIC KIDNEY DISEASE STAGING PER NKF: MALE GFR INTERPRETATION: 20-49 YRS: >60 mL/min Normal 50-59 YRS: >56 mL/min Normal 60-69 YRS: >49 mL/min Normal 70-79 YRS: >42 mL/min Normal 80 and above >35 mL/min Normal FEMALE GRF INTERPRETATION: 20-39 YRS: >60 mL/min Normal 40-49 YRS: >58 mL/min Normal 50-59 YRS: >51 mL/min Normal 60-69 YRS: >45 mL/min Normal 70-79 YRS: >39 mL/min Normal 80 and above >32 mL/min NormalNORMAL RANGES Age WBC RBC HGB HCT MCV PLT Adult M 4.1-10.9 4.20-6.30 12.0-18.0 37.0-51.0 80-97 140-440 Adult F 4.1-10.9 4.04-5.48 12.0-18.0 37.0-51.0 80-97 140-440 0- 1 Yr 5.0-20.0 3.9-5.9 15-18 MV: 44 MV: 91 MV: 277 2-9 Yr. 6.0-17.0 3.8-5.4 11-13 MV: 37 MV: 78 MV: 300 10 Yrs. 5.0-13.0 3.8-5.4 12-15 MV: 39 MV: 80 MV: 250 NOTE: * FOR ADULT BLACK MALES AND FEMALES, NORMAL WBC IS 2.9-7.7 K/ML * FOR ADULT BLACK MALES AND FEMALES, NORMAL RBC,HGB, AND HCT IS 5% LESS SOURCE FOR DATA: [facility] 1800 OPERATION MANUAL( AUTOMATED BLOOD COUNTS AND DIFF.) APPENDIX B-3 Anion Gap 18 mmol/L [facility] CLASSIFICATION CHOLESTEROL FO R ADULTS CHILDREN/ADOLESCENTS* DESIRABLE: <200 MG/DL <170 MG/DL BORDER-LINE HIGH RISK: 200-239 MG/DL 170-199 MG/DL HIGH RISK: >240 MG/DL >200 MG/DL CLASS. FOR PRIMARY LDL CHOL PREVENTION: LDL CHOL-CHILD/ADOLESCENTS* DESIRABLE: <130 MG/DL <110 MG/DL BORDERLINE-HIGH RISK: 130-159 MG/DL 110-129 MG/DL HIGH RISK: >160 MG/DL >130 MG/DL *CHILDREN AND ADOLESCENTS REPRESENTS INDIVIDUALA AGED 2-19 YEARS EXCLUSIVE. CHRONIC KIDNEY DISEASE STAGING PER NKF: MALE GFR INTERPRETATION: 20-49 YRS: >60 mL/min Normal 50-59 YRS: >56 mL/min Normal 60-69 YRS: >49 mL/min Normal 70-79 YRS: >42 mL/min Normal 80 and above >35 mL/min Normal FEMALE GRF INTERPRETATION: 20-39 YRS: >60 mL/min Normal 40-49 YRS: >58 mL/min Normal 50-59 YRS: >51 mL/min Normal 60-69 YRS: >45 mL/min Normal 70-79 YRS: >39 mL/min Normal 80 and above >32 mL/min NormalNORMAL RANGES Age WBC RBC HGB HCT MCV PLT Adult M 4.1-10.9 4.20-6.30 12.0-18.0 37.0-51.0 80-97 140-440 Adult F 4.1-10.9 4.04-5.48 12.0-18.0 37.0-51.0 80-97 140-440 0- 1 Yr 5.0-20.0 3.9-5.9 15-18 MV: 44 MV: 91 MV: 277 2-9 Yr. 6.0-17.0 3.8-5.4 11-13 MV: 37 MV: 78 MV: 300 10 Yrs. 5.0-13.0 3.8-5.4 12-15 MV: 39 MV: 80 MV: 250 NOTE: * FOR ADULT BLACK MALES AND FEMALES, NORMAL WBC IS 2.9-7.7 K/ML * FOR ADULT BLACK MALES AND FEMALES, NORMAL RBC,HGB, AND HCT IS 5% LESS SOURCE FOR DATA: [employer] 1800 OPERATION MANUAL( AUTOMATED BLOOD COUNTS AND DIFF.) APPENDIX B-3 Osmolality-Calculated 281.0 CALC MED ENT ([facility] CLASSIFICATION CHOLESTEROL FO R ADULTS CHILDREN/ADOLESCENTS* DESIRABLE: <200 MG/DL <170 MG/DL BORDER-LINE HIGH RISK: 200-239 MG/DL 170-199 MG/DL HIGH RISK: >240 MG/DL >200 MG/DL CLASS. FOR PRIMARY LDL CHOL PREVENTION: LDL CHOL-CHILD/ADOLESCENTS* DESIRABLE: <130 MG/DL <110 MG/DL BORDERLINE-HIGH RISK: 130-159 MG/DL 110-129 MG/DL HIGH RISK: >160 MG/DL >130 MG/DL *CHILDREN AND ADOLESCENTS REPRESENTS INDIVIDUALA AGED 2-19 YEARS EXCLUSIVE. CHRONIC KIDNEY DISEASE STAGING PER NKF: MALE GFR INTERPRETATION: 20-49 YRS: >60 mL/min Normal 50-59 YRS: >56 mL/min Normal 60-69 YRS: >49 mL/min Normal 70-79 YRS: >42 mL/min Normal 80 and above >35 mL/min Normal FEMALE GRF INTERPRETATION: 20-39 YRS: >60 mL/min Normal 40-49 YRS: >58 mL/min Normal 50-59 YRS: >51 mL/min Normal 60-69 YRS: >45 mL/min Normal 70-79 YRS: >39 mL/min Normal 80 and above >32 mL/min NormalNORMAL RANGES Age WBC RBC HGB HCT MCV PLT Adult M 4.1-10.9 4.20-6.30 12.0-18.0 37.0-51.0 80-97 140-440 Adult F 4.1-10.9 4.04-5.48 12.0-18.0 37.0-51.0 80-97 140-440 0- 1 Yr 5.0-20.0 3.9-5.9 15-18 MV: 44 MV: 91 MV: 277 2-9 Yr. 6.0-17.0 3.8-5.4 11-13 MV: 37 MV: 78 MV: 300 10 Yrs. 5.0-13.0 3.8-5.4 12-15 MV: 39 MV: 80 MV: 250 NOTE: * FOR ADULT BLACK MALES AND FEMALES, NORMAL WBC IS 2.9-7.7 K/ML * FOR ADULT BLACK MALES AND FEMALES, NORMAL RBC,HGB, AND HCT IS 5% LESS SOURCE FOR DATA: [employer] DYN 1800 OPERATION MANUAL( AUTOMATED BLOOD COUNTS AND DIFF.) APPENDIX B-3 eGFR 90 # MEDENT ( [facility] CLASSIFICATION CHOLESTEROL FO R ADULTS CHILDREN/ADOLESCENTS* DESIRABLE: <200 MG/DL <170 MG/DL BORDER-LINE HIGH RISK: 200-239 MG/DL 170-199 MG/DL HIGH RISK: >240 MG/DL >200 MG/DL CLASS. FOR PRIMARY LDL CHOL PREVENTION: LDL CHOL-CHILD/ADOLESCENTS* DESIRABLE: <130 MG/DL <110 MG/DL BORDERLINE-HIGH RISK: 130-159 MG/DL 110-129 MG/DL HIGH RISK: >160 MG/DL >130 MG/DL *CHILDREN AND ADOLESCENTS REPRESENTS INDIVIDUALA AGED 2-19 YEARS EXCLUSIVE. CHRONIC KIDNEY DISEASE STAGING PER NKF: MALE GFR INTERPRETATION: 20-49 YRS: >60 mL/min Normal 50-59 YRS: >56 mL/min Normal 60-69 YRS: >49 mL/min Normal 70-79 YRS: >42 mL/min Normal 80 and above >35 mL/min Normal FEMALE GRF INTERPRETATION: 20-39 YRS: >60 mL/min Normal 40-49 YRS: >58 mL/min Normal 50-59 YRS: >51 mL/min Normal 60-69 YRS: >45 mL/min Normal 70-79 YRS: >39 mL/min Normal 80 and above >32 mL/min NormalNORMAL RANGES Age WBC RBC HGB HCT MCV PLT Adult M 4.1-10.9 4.20-6.30 12.0-18.0 37.0-51.0 80-97 140-440 Adult F 4.1-10.9 4.04-5.48 12.0-18.0 37.0-51.0 80-97 140-440 0- 1 Yr 5.0-20.0 3.9-5.9 15-18 MV: 44 MV: 91 MV: 277 2-9 Yr. 6.0-17.0 3.8-5.4 11-13 MV: 37 MV: 78 MV: 300 10 Yrs. 5.0-13.0 3.8-5.4 12-15 MV: 39 MV: 80 MV: 250 NOTE: * FOR ADULT BLACK MALES AND FEMALES, NORMAL WBC IS 2.9-7.7 K/ML * FOR ADULT BLACK MALES AND FEMALES, NORMAL RBC,HGB, AND HCT IS 5% LESS SOURCE FOR DATA: [employer] DYN 1800 OPERATION MANUAL( AUTOMATED BLOOD COUNTS AND DIFF.) APPENDIX B-3 eGFR Non-Afr. [place] Citizen 78 # MEDENT ([facility] CLASSIFICATION CHOLESTEROL FO R ADULTS CHILDREN/ADOLESCENTS* DESIRABLE: <200 MG/DL <170 MG/DL BORDER-LINE HIGH RISK: 200-239 MG/DL 170-199 MG/DL HIGH RISK: >240 MG/DL >200 MG/DL CLASS. FOR PRIMARY LDL CHOL PREVENTION: LDL CHOL-CHILD/ADOLESCENTS* DESIRABLE: <130 MG/DL <110 MG/DL BORDERLINE-HIGH RISK: 130-159 MG/DL 110-129 MG/DL HIGH RISK: >160 MG/DL >130 MG/DL *CHILDREN AND ADOLESCENTS REPRESENTS INDIVIDUALA AGED 2-19 YEARS EXCLUSIVE. CHRONIC KIDNEY DISEASE STAGING PER NKF: MALE GFR INTERPRETATION: 20-49 YRS: >60 mL/min Normal 50-59 YRS: >56 mL/min Normal 60-69 YRS: >49 mL/min Normal 70-79 YRS: >42 mL/min Normal 80 and above >35 mL/min Normal FEMALE GRF INTERPRETATION: 20-39 YRS: >60 mL/min Normal 40-49 YRS: >58 mL/min Normal 50-59 YRS: >51 mL/min Normal 60-69 YRS: >45 mL/min Normal 70-79 YRS: >39 mL/min Normal 80 and above >32 mL/min NormalNORMAL RANGES Age WBC RBC HGB HCT MCV PLT Adult M 4.1-10.9 4.20-6.30 12.0-18.0 37.0-51.0 80-97 140-440 Adult F 4.1-10.9 4.04-5.48 12.0-18.0 37.0-51.0 80-97 140-440 0- 1 Yr 5.0-20.0 3.9-5.9 15-18 MV: 44 MV: 91 MV: 277 2-9 Yr. 6.0-17.0 3.8-5.4 11-13 MV: 37 MV: 78 MV: 300 10 Yrs. 5.0-13.0 3.8-5.4 12-15 MV: 39 MV: 80 MV: 250 NOTE: * FOR ADULT BLACK MALES AND FEMALES, NORMAL WBC IS 2.9-7.7 K/ML * FOR ADULT BLACK MALES AND FEMALES, NORMAL RBC,HGB, AND HCT IS 5% LESS SOURCE FOR DATA: [employer] 1800 OPERATION MANUAL( AUTOMATED BLOOD COUNTS AND DIFF.) APPENDIX B-3 ID Date Data Source [id number] 12/02/2019 10:07:00 CHITRA GARCIA ([facility] Name Value Range Interpretation Code Description Data Francoise rce(s) Supporting Document(s) RBC 4.97 10E6/uL RAD[facility] ([facility] CLASSIFICATION CHOLESTEROL FO R ADULTS CHILDREN/ADOLESCENTS* DESIRABLE: <200 MG/DL <170 MG/DL BORDER-LINE HIGH RISK: 200-239 MG/DL 170-199 MG/DL HIGH RISK: >240 MG/DL >200 MG/DL CLASS. FOR PRIMARY LDL CHOL PREVENTION: LDL CHOL-CHILD/ADOLESCENTS* DESIRABLE: <130 MG/DL <110 MG/DL BORDERLINE-HIGH RISK: 130-159 MG/DL 110-129 MG/DL HIGH RISK: >160 MG/DL >130 MG/DL *CHILDREN AND ADOLESCENTS REPRESENTS INDIVIDUALA AGED 2-19 YEARS EXCLUSIVE. CHRONIC KIDNEY DISEASE STAGING PER NKF: MALE GFR INTERPRETATION: 20-49 YRS: >60 mL/min Normal 50-59 YRS: >56 mL/min Normal 60-69 YRS: >49 mL/min Normal 70-79 YRS: >42 mL/min Normal 80 and above >35 mL/min Normal FEMALE GRF INTERPRETATION: 20-39 YRS: >60 mL/min Normal 40-49 YRS: >58 mL/min Normal 50-59 YRS: >51 mL/min Normal 60-69 YRS: >45 mL/min Normal 70-79 YRS: >39 mL/min Normal 80 and above >32 mL/min NormalNORMAL RANGES Age WBC RBC HGB HCT MCV PLT Adult M 4.1-10.9 4.20-6.30 12.0-18.0 37.0-51.0 80-97 140-440 Adult F 4.1-10.9 4.04-5.48 12.0-18.0 37.0-51.0 80-97 140-440 0- 1 Yr 5.0-20.0 3.9-5.9 15-18 MV: 44 MV: 91 MV: 277 2-9 Yr. 6.0-17.0 3.8-5.4 11-13 MV: 37 MV: 78 MV: 300 10 Yrs. 5.0-13.0 3.8-5.4 12-15 MV: 39 MV: 80 MV: 250 NOTE: * FOR ADULT BLACK MALES AND FEMALES, NORMAL WBC IS 2.9-7.7 K/ML * FOR ADULT BLACK MALES AND FEMALES, NORMAL RBC,HGB, AND HCT IS 5% LESS SOURCE FOR DATA: [employer] 1800 OPERATION MANUAL( AUTOMATED BLOOD COUNTS AND DIFF.) APPENDIX B-3 WBC 5.8 10E3/uL 4.1-10.9 [facility] ([facility] CLASSIFICATION CHOLESTEROL FO R ADULTS CHILDREN/ADOLESCENTS* DESIRABLE: <200 MG/DL <170 MG/DL BORDER-LINE HIGH RISK: 200-239 MG/DL 170-199 MG/DL HIGH RISK: >240 MG/DL >200 MG/DL CLASS. FOR PRIMARY LDL CHOL PREVENTION: LDL CHOL-CHILD/ADOLESCENTS* DESIRABLE: <130 MG/DL <110 MG/DL BORDERLINE-HIGH RISK: 130-159 MG/DL 110-129 MG/DL HIGH RISK: >160 MG/DL >130 MG/DL *CHILDREN AND ADOLESCENTS REPRESENTS INDIVIDUALA AGED 2-19 YEARS EXCLUSIVE. CHRONIC KIDNEY DISEASE STAGING PER NKF: MALE GFR INTERPRETATION: 20-49 YRS: >60 mL/min Normal 50-59 YRS: >56 mL/min Normal 60-69 YRS: >49 mL/min Normal 70-79 YRS: >42 mL/min Normal 80 and above >35 mL/min Normal FEMALE GRF INTERPRETATION: 20-39 YRS: >60 mL/min Normal 40-49 YRS: >58 mL/min Normal 50-59 YRS: >51 mL/min Normal 60-69 YRS: >45 mL/min Normal 70-79 YRS: >39 mL/min Normal 80 and above >32 mL/min NormalNORMAL RANGES Age WBC RBC HGB HCT MCV PLT Adult M 4.1-10.9 4.20-6.30 12.0-18.0 37.0-51.0 80-97 140-440 Adult F 4.1-10.9 4.04-5.48 12.0-18.0 37.0-51.0 80-97 140-440 0- 1 Yr 5.0-20.0 3.9-5.9 15-18 MV: 44 MV: 91 MV: 277 2-9 Yr. 6.0-17.0 3.8-5.4 11-13 MV: 37 MV: 78 MV: 300 10 Yrs. 5.0-13.0 3.8-5.4 12-15 MV: 39 MV: 80 MV: 250 NOTE: * FOR ADULT BLACK MALES AND FEMALES, NORMAL WBC IS 2.9-7.7 K/ML * FOR ADULT BLACK MALES AND FEMALES, NORMAL RBC,HGB, AND HCT IS 5% LESS SOURCE FOR DATA: [employer] 1800 OPERATION MANUAL( AUTOMATED BLOOD COUNTS AND DIFF.) APPENDIX B-3 MCV 90.3 fL 80.0-97.0 [facility] ([facility] CLASSIFICATION CHOLESTEROL FO R ADULTS CHILDREN/ADOLESCENTS* DESIRABLE: <200 MG/DL <170 MG/DL BORDER-LINE HIGH RISK: 200-239 MG/DL 170-199 MG/DL HIGH RISK: >240 MG/DL >200 MG/DL CLASS. FOR PRIMARY LDL CHOL PREVENTION: LDL CHOL-CHILD/ADOLESCENTS* DESIRABLE: <130 MG/DL <110 MG/DL BORDERLINE-HIGH RISK: 130-159 MG/DL 110-129 MG/DL HIGH RISK: >160 MG/DL >130 MG/DL *CHILDREN AND ADOLESCENTS REPRESENTS INDIVIDUALA AGED 2-19 YEARS EXCLUSIVE. CHRONIC KIDNEY DISEASE STAGING PER NKF: MALE GFR INTERPRETATION: 20-49 YRS: >60 mL/min Normal 50-59 YRS: >56 mL/min Normal 60-69 YRS: >49 mL/min Normal 70-79 YRS: >42 mL/min Normal 80 and above >35 mL/min Normal FEMALE GRF INTERPRETATION: 20-39 YRS: >60 mL/min Normal 40-49 YRS: >58 mL/min Normal 50-59 YRS: >51 mL/min Normal 60-69 YRS: >45 mL/min Normal 70-79 YRS: >39 mL/min Normal 80 and above >32 mL/min NormalNORMAL RANGES Age WBC RBC HGB HCT MCV PLT Adult M 4.1-10.9 4.20-6.30 12.0-18.0 37.0-51.0 80-97 140-440 Adult F 4.1-10.9 4.04-5.48 12.0-18.0 37.0-51.0 80-97 140-440 0- 1 Yr 5.0-20.0 3.9-5.9 15-18 MV: 44 MV: 91 MV: 277 2-9 Yr. 6.0-17.0 3.8-5.4 11-13 MV: 37 MV: 78 MV: 300 10 Yrs. 5.0-13.0 3.8-5.4 12-15 MV: 39 MV: 80 MV: 250 NOTE: * FOR ADULT BLACK MALES AND FEMALES, NORMAL WBC IS 2.9-7.7 K/ML * FOR ADULT BLACK MALES AND FEMALES, NORMAL RBC,HGB, AND HCT IS 5% LESS SOURCE FOR DATA: [employer] 1800 OPERATION MANUAL( AUTOMATED BLOOD COUNTS AND DIFF.) APPENDIX B-3 HGB 15.1 g/dL 12.0-18.0 [facility] ([facility] CLASSIFICATION CHOLESTEROL FO R ADULTS CHILDREN/ADOLESCENTS* DESIRABLE: <200 MG/DL <170 MG/DL BORDER-LINE HIGH RISK: 200-239 MG/DL 170-199 MG/DL HIGH RISK: >240 MG/DL >200 MG/DL CLASS. FOR PRIMARY LDL CHOL PREVENTION: LDL CHOL-CHILD/ADOLESCENTS* DESIRABLE: <130 MG/DL <110 MG/DL BORDERLINE-HIGH RISK: 130-159 MG/DL 110-129 MG/DL HIGH RISK: >160 MG/DL >130 MG/DL *CHILDREN AND ADOLESCENTS REPRESENTS INDIVIDUALA AGED 2-19 YEARS EXCLUSIVE. CHRONIC KIDNEY DISEASE STAGING PER NKF: MALE GFR INTERPRETATION: 20-49 YRS: >60 mL/min Normal 50-59 YRS: >56 mL/min Normal 60-69 YRS: >49 mL/min Normal 70-79 YRS: >42 mL/min Normal 80 and above >35 mL/min Normal FEMALE GRF INTERPRETATION: 20-39 YRS: >60 mL/min Normal 40-49 YRS: >58 mL/min Normal 50-59 YRS: >51 mL/min Normal 60-69 YRS: >45 mL/min Normal 70-79 YRS: >39 mL/min Normal 80 and above >32 mL/min NormalNORMAL RANGES Age WBC RBC HGB HCT MCV PLT Adult M 4.1-10.9 4.20-6.30 12.0-18.0 37.0-51.0 80-97 140-440 Adult F 4.1-10.9 4.04-5.48 12.0-18.0 37.0-51.0 80-97 140-440 0- 1 Yr 5.0-20.0 3.9-5.9 15-18 MV: 44 MV: 91 MV: 277 2-9 Yr. 6.0-17.0 3.8-5.4 11-13 MV: 37 MV: 78 MV: 300 10 Yrs. 5.0-13.0 3.8-5.4 12-15 MV: 39 MV: 80 MV: 250 NOTE: * FOR ADULT BLACK MALES AND FEMALES, NORMAL WBC IS 2.9-7.7 K/ML * FOR ADULT BLACK MALES AND FEMALES, NORMAL RBC,HGB, AND HCT IS 5% LESS SOURCE FOR DATA: [employer] 1800 OPERATION MANUAL( AUTOMATED BLOOD COUNTS AND DIFF.) APPENDIX B-3 HCT 44.9 % 37.0-51.0 [facility] ([facility] CLASSIFICATION CHOLESTEROL FO R ADULTS CHILDREN/ADOLESCENTS* DESIRABLE: <200 MG/DL <170 MG/DL BORDER-LINE HIGH RISK: 200-239 MG/DL 170-199 MG/DL HIGH RISK: >240 MG/DL >200 MG/DL CLASS. FOR PRIMARY LDL CHOL PREVENTION: LDL CHOL-CHILD/ADOLESCENTS* DESIRABLE: <130 MG/DL <110 MG/DL BORDERLINE-HIGH RISK: 130-159 MG/DL 110-129 MG/DL HIGH RISK: >160 MG/DL >130 MG/DL *CHILDREN AND ADOLESCENTS REPRESENTS INDIVIDUALA AGED 2-19 YEARS EXCLUSIVE. CHRONIC KIDNEY DISEASE STAGING PER NKF: MALE GFR INTERPRETATION: 20-49 YRS: >60 mL/min Normal 50-59 YRS: >56 mL/min Normal 60-69 YRS: >49 mL/min Normal 70-79 YRS: >42 mL/min Normal 80 and above >35 mL/min Normal FEMALE GRF INTERPRETATION: 20-39 YRS: >60 mL/min Normal 40-49 YRS: >58 mL/min Normal 50-59 YRS: >51 mL/min Normal 60-69 YRS: >45 mL/min Normal 70-79 YRS: >39 mL/min Normal 80 and above >32 mL/min NormalNORMAL RANGES Age WBC RBC HGB HCT MCV PLT Adult M 4.1-10.9 4.20-6.30 12.0-18.0 37.0-51.0 80-97 140-440 Adult F 4.1-10.9 4.04-5.48 12.0-18.0 37.0-51.0 80-97 140-440 0- 1 Yr 5.0-20.0 3.9-5.9 15-18 MV: 44 MV: 91 MV: 277 2-9 Yr. 6.0-17.0 3.8-5.4 11-13 MV: 37 MV: 78 MV: 300 10 Yrs. 5.0-13.0 3.8-5.4 12-15 MV: 39 MV: 80 MV: 250 NOTE: * FOR ADULT BLACK MALES AND FEMALES, NORMAL WBC IS 2.9-7.7 K/ML * FOR ADULT BLACK MALES AND FEMALES, NORMAL RBC,HGB, AND HCT IS 5% LESS SOURCE FOR DATA: [employer] 1800 OPERATION MANUAL( AUTOMATED BLOOD COUNTS AND DIFF.) APPENDIX B-3 PLT 221 10E3/uL 140-440 [facility] CLASSIFICATION CHOLESTEROL FO R ADULTS CHILDREN/ADOLESCENTS* DESIRABLE: <200 MG/DL <170 MG/DL BORDER-LINE HIGH RISK: 200-239 MG/DL 170-199 MG/DL HIGH RISK: >240 MG/DL >200 MG/DL CLASS. FOR PRIMARY LDL CHOL PREVENTION: LDL CHOL-CHILD/ADOLESCENTS* DESIRABLE: <130 MG/DL <110 MG/DL BORDERLINE-HIGH RISK: 130-159 MG/DL 110-129 MG/DL HIGH RISK: >160 MG/DL >130 MG/DL *CHILDREN AND ADOLESCENTS REPRESENTS INDIVIDUALA AGED 2-19 YEARS EXCLUSIVE. CHRONIC KIDNEY DISEASE STAGING PER NKF: MALE GFR INTERPRETATION: 20-49 YRS: >60 mL/min Normal 50-59 YRS: >56 mL/min Normal 60-69 YRS: >49 mL/min Normal 70-79 YRS: >42 mL/min Normal 80 and above >35 mL/min Normal FEMALE GRF INTERPRETATION: 20-39 YRS: >60 mL/min Normal 40-49 YRS: >58 mL/min Normal 50-59 YRS: >51 mL/min Normal 60-69 YRS: >45 mL/min Normal 70-79 YRS: >39 mL/min Normal 80 and above >32 mL/min NormalNORMAL RANGES Age WBC RBC HGB HCT MCV PLT Adult M 4.1-10.9 4.20-6.30 12.0-18.0 37.0-51.0 80-97 140-440 Adult F 4.1-10.9 4.04-5.48 12.0-18.0 37.0-51.0 80-97 140-440 0- 1 Yr 5.0-20.0 3.9-5.9 15-18 MV: 44 MV: 91 MV: 277 2-9 Yr. 6.0-17.0 3.8-5.4 11-13 MV: 37 MV: 78 MV: 300 10 Yrs. 5.0-13.0 3.8-5.4 12-15 MV: 39 MV: 80 MV: 250 NOTE: * FOR ADULT BLACK MALES AND FEMALES, NORMAL WBC IS 2.9-7.7 K/ML * FOR ADULT BLACK MALES AND FEMALES, NORMAL RBC,HGB, AND HCT IS 5% LESS SOURCE FOR DATA: [employer] 1800 OPERATION MANUAL( AUTOMATED BLOOD COUNTS AND DIFF.) APPENDIX B-3 MCH 30.4 pg 26.0-32.0 [facility] ([facility] CLASSIFICATION CHOLESTEROL FO R ADULTS CHILDREN/ADOLESCENTS* DESIRABLE: <200 MG/DL <170 MG/DL BORDER-LINE HIGH RISK: 200-239 MG/DL 170-199 MG/DL HIGH RISK: >240 MG/DL >200 MG/DL CLASS. FOR PRIMARY LDL CHOL PREVENTION: LDL CHOL-CHILD/ADOLESCENTS* DESIRABLE: <130 MG/DL <110 MG/DL BORDERLINE-HIGH RISK: 130-159 MG/DL 110-129 MG/DL HIGH RISK: >160 MG/DL >130 MG/DL *CHILDREN AND ADOLESCENTS REPRESENTS INDIVIDUALA AGED 2-19 YEARS EXCLUSIVE. CHRONIC KIDNEY DISEASE STAGING PER NKF: MALE GFR INTERPRETATION: 20-49 YRS: >60 mL/min Normal 50-59 YRS: >56 mL/min Normal 60-69 YRS: >49 mL/min Normal 70-79 YRS: >42 mL/min Normal 80 and above >35 mL/min Normal FEMALE GRF INTERPRETATION: 20-39 YRS: >60 mL/min Normal 40-49 YRS: >58 mL/min Normal 50-59 YRS: >51 mL/min Normal 60-69 YRS: >45 mL/min Normal 70-79 YRS: >39 mL/min Normal 80 and above >32 mL/min NormalNORMAL RANGES Age WBC RBC HGB HCT MCV PLT Adult M 4.1-10.9 4.20-6.30 12.0-18.0 37.0-51.0 80-97 140-440 Adult F 4.1-10.9 4.04-5.48 12.0-18.0 37.0-51.0 80-97 140-440 0- 1 Yr 5.0-20.0 3.9-5.9 15-18 MV: 44 MV: 91 MV: 277 2-9 Yr. 6.0-17.0 3.8-5.4 11-13 MV: 37 MV: 78 MV: 300 10 Yrs. 5.0-13.0 3.8-5.4 12-15 MV: 39 MV: 80 MV: 250 NOTE: * FOR ADULT BLACK MALES AND FEMALES, NORMAL WBC IS 2.9-7.7 K/ML * FOR ADULT BLACK MALES AND FEMALES, NORMAL RBC,HGB, AND HCT IS 5% LESS SOURCE FOR DATA: [employer] 1800 OPERATION MANUAL( AUTOMATED BLOOD COUNTS AND DIFF.) APPENDIX B-3 MCHC 33.6 g/dL 31.0-36.0 [facility] ([facility] CLASSIFICATION CHOLESTEROL FO R ADULTS CHILDREN/ADOLESCENTS* DESIRABLE: <200 MG/DL <170 MG/DL BORDER-LINE HIGH RISK: 200-239 MG/DL 170-199 MG/DL HIGH RISK: >240 MG/DL >200 MG/DL CLASS. FOR PRIMARY LDL CHOL PREVENTION: LDL CHOL-CHILD/ADOLESCENTS* DESIRABLE: <130 MG/DL <110 MG/DL BORDERLINE-HIGH RISK: 130-159 MG/DL 110-129 MG/DL HIGH RISK: >160 MG/DL >130 MG/DL *CHILDREN AND ADOLESCENTS REPRESENTS INDIVIDUALA AGED 2-19 YEARS EXCLUSIVE. CHRONIC KIDNEY DISEASE STAGING PER NKF: MALE GFR INTERPRETATION: 20-49 YRS: >60 mL/min Normal 50-59 YRS: >56 mL/min Normal 60-69 YRS: >49 mL/min Normal 70-79 YRS: >42 mL/min Normal 80 and above >35 mL/min Normal FEMALE GRF INTERPRETATION: 20-39 YRS: >60 mL/min Normal 40-49 YRS: >58 mL/min Normal 50-59 YRS: >51 mL/min Normal 60-69 YRS: >45 mL/min Normal 70-79 YRS: >39 mL/min Normal 80 and above >32 mL/min NormalNORMAL RANGES Age WBC RBC HGB HCT MCV PLT Adult M 4.1-10.9 4.20-6.30 12.0-18.0 37.0-51.0 80-97 140-440 Adult F 4.1-10.9 4.04-5.48 12.0-18.0 37.0-51.0 80-97 140-440 0- 1 Yr 5.0-20.0 3.9-5.9 15-18 MV: 44 MV: 91 MV: 277 2-9 Yr. 6.0-17.0 3.8-5.4 11-13 MV: 37 MV: 78 MV: 300 10 Yrs. 5.0-13.0 3.8-5.4 12-15 MV: 39 MV: 80 MV: 250 NOTE: * FOR ADULT BLACK MALES AND FEMALES, NORMAL WBC IS 2.9-7.7 K/ML * FOR ADULT BLACK MALES AND FEMALES, NORMAL RBC,HGB, AND HCT IS 5% LESS SOURCE FOR DATA: [facility] 1800 [employer]PERATION MANUAL( AUTOMATED BLOOD COUNTS AND DIFF.) APPENDIX B-3 Neut% 55.0 % 37.0-92.0 [facility] ([facility] CLASSIFICATION CHOLESTEROL FO R ADULTS CHILDREN/ADOLESCENTS* DESIRABLE: <200 MG/DL <170 MG/DL BORDER-LINE HIGH RISK: 200-239 MG/DL 170-199 MG/DL HIGH RISK: >240 MG/DL >200 MG/DL CLASS. FOR PRIMARY LDL CHOL PREVENTION: LDL CHOL-CHILD/ADOLESCENTS* DESIRABLE: <130 MG/DL <110 MG/DL BORDERLINE-HIGH RISK: 130-159 MG/DL 110-129 MG/DL HIGH RISK: >160 MG/DL >130 MG/DL *CHILDREN AND ADOLESCENTS REPRESENTS INDIVIDUALA AGED 2-19 YEARS EXCLUSIVE. CHRONIC KIDNEY DISEASE STAGING PER NKF: MALE GFR INTERPRETATION: 20-49 YRS: >60 mL/min Normal 50-59 YRS: >56 mL/min Normal 60-69 YRS: >49 mL/min Normal 70-79 YRS: >42 mL/min Normal 80 and above >35 mL/min Normal FEMALE GRF INTERPRETATION: 20-39 YRS: >60 mL/min Normal 40-49 YRS: >58 mL/min Normal 50-59 YRS: >51 mL/min Normal 60-69 YRS: >45 mL/min Normal 70-79 YRS: >39 mL/min Normal 80 and above >32 mL/min NormalNORMAL RANGES Age WBC RBC HGB HCT MCV PLT Adult M 4.1-10.9 4.20-6.30 12.0-18.0 37.0-51.0 80- 140-440 Adult F 4.1-10.9 4.04-5.48 12.0-18.0 37.0-51.0 80 140-440 0- 1 Yr 5.0-20.0 3.9-5.9 15-18 MV: 44 MV: 91 MV: 277 2-9 Yr. 6.0-17.0 3.8-5.4 11-13 MV: 37 MV: 78 MV: 300 10 Yrs. 5.0-13.0 3.8-5.4 12-15 MV: 39 MV: 80 MV: 250 NOTE: * FOR ADULT BLACK MALES AND FEMALES, NORMAL WBC IS 2.9-7.7 K/ML * FOR ADULT BLACK MALES AND FEMALES, NORMAL RBC,HGB, AND HCT IS 5% LESS SOURCE FOR DATA: [facility] 1800 OPERATION MANUAL( AUTOMATED BLOOD COUNTS AND DIFF.) APPENDIX B-3 Lym% 37.2 % 10.0-58.5 [facility] CLASSIFICATION CHOLESTEROL FO R ADULTS CHILDREN/ADOLESCENTS* DESIRABLE: <200 MG/DL <170 MG/DL BORDER-LINE HIGH RISK: 200-239 MG/DL 170-199 MG/DL HIGH RISK: >240 MG/DL >200 MG/DL CLASS. FOR PRIMARY LDL CHOL PREVENTION: LDL CHOL-CHILD/ADOLESCENTS* DESIRABLE: <130 MG/DL <110 MG/DL BORDERLINE-HIGH RISK: 130-159 MG/DL 110-129 MG/DL HIGH RISK: >160 MG/DL >130 MG/DL *CHILDREN AND ADOLESCENTS REPRESENTS INDIVIDUALA AGED 2-19 YEARS EXCLUSIVE. CHRONIC KIDNEY DISEASE STAGING PER NKF: MALE GFR INTERPRETATION: 20-49 YRS: >60 mL/min Normal 50-59 YRS: >56 mL/min Normal 60-69 YRS: >49 mL/min Normal 70-79 YRS: >42 mL/min Normal 80 and above >35 mL/min Normal FEMALE GRF INTERPRETATION: 20-39 YRS: >60 mL/min Normal 40-49 YRS: >58 mL/min Normal 50-59 YRS: >51 mL/min Normal 60-69 YRS: >45 mL/min Normal 70-79 YRS: >39 mL/min Normal 80 and above >32 mL/min NormalNORMAL RANGES Age WBC RBC HGB HCT MCV PLT Adult M 4.1-10.9 4.20-6.30 12.0-18.0 37.0-51.0 80-97 140-440 Adult F 4.1-10.9 4.04-5.48 12.0-18.0 37.0-51.0 80-97 140-440 0- 1 Yr 5.0-20.0 3.9-5.9 15-18 MV: 44 MV: 91 MV: 277 2-9 Yr. 6.0-17.0 3.8-5.4 11-13 MV: 37 MV: 78 MV: 300 10 Yrs. 5.0-13.0 3.8-5.4 12-15 MV: 39 MV: 80 MV: 250 NOTE: * FOR ADULT BLACK MALES AND FEMALES, NORMAL WBC IS 2.9-7.7 K/ML * FOR ADULT BLACK MALES AND FEMALES, NORMAL RBC,HGB, AND HCT IS 5% LESS SOURCE FOR DATA: [facility] 1800 OPERATION MANUAL( AUTOMATED BLOOD COUNTS AND DIFF.) APPENDIX B-3 RDW-CV 13.6 % 11.5-14.5 [facility] CLASSIFICATION CHOLESTEROL FO R ADULTS CHILDREN/ADOLESCENTS* DESIRABLE: <200 MG/DL <170 MG/DL BORDER-LINE HIGH RISK: 200-239 MG/DL 170-199 MG/DL HIGH RISK: >240 MG/DL >200 MG/DL CLASS. FOR PRIMARY LDL CHOL PREVENTION: LDL CHOL-CHILD/ADOLESCENTS* DESIRABLE: <130 MG/DL <110 MG/DL BORDERLINE-HIGH RISK: 130-159 MG/DL 110-129 MG/DL HIGH RISK: >160 MG/DL >130 MG/DL *CHILDREN AND ADOLESCENTS REPRESENTS INDIVIDUALA AGED 2-19 YEARS EXCLUSIVE. CHRONIC KIDNEY DISEASE STAGING PER NKF: MALE GFR INTERPRETATION: 20-49 YRS: >60 mL/min Normal 50-59 YRS: >56 mL/min Normal 60-69 YRS: >49 mL/min Normal 70-79 YRS: >42 mL/min Normal 80 and above >35 mL/min Normal FEMALE GRF INTERPRETATION: 20-39 YRS: >60 mL/min Normal 40-49 YRS: >58 mL/min Normal 50-59 YRS: >51 mL/min Normal 60-69 YRS: >45 mL/min Normal 70-79 YRS: >39 mL/min Normal 80 and above >32 mL/min NormalNORMAL RANGES Age WBC RBC HGB HCT MCV PLT Adult M 4.1-10.9 4.20-6.30 12.0-18.0 37.0-51.0 80-97 140-440 Adult F 4.1-10.9 4.04-5.48 12.0-18.0 37.0-51.0 80-97 140-440 0- 1 Yr 5.0-20.0 3.9-5.9 15-18 MV: 44 MV: 91 MV: 277 2-9 Yr. 6.0-17.0 3.8-5.4 11-13 MV: 37 MV: 78 MV: 300 10 Yrs. 5.0-13.0 3.8-5.4 12-15 MV: 39 MV: 80 MV: 250 NOTE: * FOR ADULT BLACK MALES AND FEMALES, NORMAL WBC IS 2.9-7.7 K/ML * FOR ADULT BLACK MALES AND FEMALES, NORMAL RBC,HGB, AND HCT IS 5% LESS SOURCE FOR DATA: [facility] 1800 OPERATION MANUAL( AUTOMATED BLOOD COUNTS AND DIFF.) APPENDIX B-3 MXD% 7.8 % 0.1-24.0 [facility] ([facility] CLASSIFICATION CHOLESTEROL FO R ADULTS CHILDREN/ADOLESCENTS* DESIRABLE: <200 MG/DL <170 MG/DL BORDER-LINE HIGH RISK: 200-239 MG/DL 170-199 MG/DL HIGH RISK: >240 MG/DL >200 MG/DL CLASS. FOR PRIMARY LDL CHOL PREVENTION: LDL CHOL-CHILD/ADOLESCENTS* DESIRABLE: <130 MG/DL <110 MG/DL BORDERLINE-HIGH RISK: 130-159 MG/DL 110-129 MG/DL HIGH RISK: >160 MG/DL >130 MG/DL *CHILDREN AND ADOLESCENTS REPRESENTS INDIVIDUALA AGED 2-19 YEARS EXCLUSIVE. CHRONIC KIDNEY DISEASE STAGING PER NKF: MALE GFR INTERPRETATION: 20-49 YRS: >60 mL/min Normal 50-59 YRS: >56 mL/min Normal 60-69 YRS: >49 mL/min Normal 70-79 YRS: >42 mL/min Normal 80 and above >35 mL/min Normal FEMALE GRF INTERPRETATION: 20-39 YRS: >60 mL/min Normal 40-49 YRS: >58 mL/min Normal 50-59 YRS: >51 mL/min Normal 60-69 YRS: >45 mL/min Normal 70-79 YRS: >39 mL/min Normal 80 and above >32 mL/min NormalNORMAL RANGES Age WBC RBC HGB HCT MCV PLT Adult M 4.1-10.9 4.20-6.30 12.0-18.0 37.0-51.0 80-97 140-440 Adult F 4.1-10.9 4.04-5.48 12.0-18.0 37.0-51.0 80-97 140-440 0- 1 Yr 5.0-20.0 3.9-5.9 15-18 MV: 44 MV: 91 MV: 277 2-9 Yr. 6.0-17.0 3.8-5.4 11-13 MV: 37 MV: 78 MV: 300 10 Yrs. 5.0-13.0 3.8-5.4 12-15 MV: 39 MV: 80 MV: 250 NOTE: * FOR ADULT BLACK MALES AND FEMALES, NORMAL WBC IS 2.9-7.7 K/ML * FOR ADULT BLACK MALES AND FEMALES, NORMAL RBC,HGB, AND HCT IS 5% LESS SOURCE FOR DATA: [facility] 1800 OPERATION MANUAL( AUTOMATED BLOOD COUNTS AND DIFF.) APPENDIX B-3 Lym# 2.2 10E3/uL 0.6-4.1 [facility] ([facility] CLASSIFICATION CHOLESTEROL FO R ADULTS CHILDREN/ADOLESCENTS* DESIRABLE: <200 MG/DL <170 MG/DL BORDER-LINE HIGH RISK: 200-239 MG/DL 170-199 MG/DL HIGH RISK: >240 MG/DL >200 MG/DL CLASS. FOR PRIMARY LDL CHOL PREVENTION: LDL CHOL-CHILD/ADOLESCENTS* DESIRABLE: <130 MG/DL <110 MG/DL BORDERLINE-HIGH RISK: 130-159 MG/DL 110-129 MG/DL HIGH RISK: >160 MG/DL >130 MG/DL *CHILDREN AND ADOLESCENTS REPRESENTS INDIVIDUALA AGED 2-19 YEARS EXCLUSIVE. CHRONIC KIDNEY DISEASE STAGING PER NKF: MALE GFR INTERPRETATION: 20-49 YRS: >60 mL/min Normal 50-59 YRS: >56 mL/min Normal 60-69 YRS: >49 mL/min Normal 70-79 YRS: >42 mL/min Normal 80 and above >35 mL/min Normal FEMALE GRF INTERPRETATION: 20-39 YRS: >60 mL/min Normal 40-49 YRS: >58 mL/min Normal 50-59 YRS: >51 mL/min Normal 60-69 YRS: >45 mL/min Normal 70-79 YRS: >39 mL/min Normal 80 and above >32 mL/min NormalNORMAL RANGES Age WBC RBC HGB HCT MCV PLT Adult M 4.1-10.9 4.20-6.30 12.0-18.0 37.0-51.0 80-97 140-440 Adult F 4.1-10.9 4.04-5.48 12.0-18.0 37.0-51.0 80-97 140-440 0- 1 Yr 5.0-20.0 3.9-5.9 15-18 MV: 44 MV: 91 MV: 277 2-9 Yr. 6.0-17.0 3.8-5.4 11-13 MV: 37 MV: 78 MV: 300 10 Yrs. 5.0-13.0 3.8-5.4 12-15 MV: 39 MV: 80 MV: 250 NOTE: * FOR ADULT BLACK MALES AND FEMALES, NORMAL WBC IS 2.9-7.7 K/ML * FOR ADULT BLACK MALES AND FEMALES, NORMAL RBC,HGB, AND HCT IS 5% LESS SOURCE FOR DATA: [facility] 1800 OPERATION MANUAL( AUTOMATED BLOOD COUNTS AND DIFF.) APPENDIX B-3 Neut# 3.1 % 2.0-7.8 [facility] ([facility] CLASSIFICATION CHOLESTEROL FO R ADULTS CHILDREN/ADOLESCENTS* DESIRABLE: <200 MG/DL <170 MG/DL BORDER-LINE HIGH RISK: 200-239 MG/DL 170-199 MG/DL HIGH RISK: >240 MG/DL >200 MG/DL CLASS. FOR PRIMARY LDL CHOL PREVENTION: LDL CHOL-CHILD/ADOLESCENTS* DESIRABLE: <130 MG/DL <110 MG/DL BORDERLINE-HIGH RISK: 130-159 MG/DL 110-129 MG/DL HIGH RISK: >160 MG/DL >130 MG/DL *CHILDREN AND ADOLESCENTS REPRESENTS INDIVIDUALA AGED 2-19 YEARS EXCLUSIVE. CHRONIC KIDNEY DISEASE STAGING PER NKF: MALE GFR INTERPRETATION: 20-49 YRS: >60 mL/min Normal 50-59 YRS: >56 mL/min Normal 60-69 YRS: >49 mL/min Normal 70-79 YRS: >42 mL/min Normal 80 and above >35 mL/min Normal FEMALE GRF INTERPRETATION: 20-39 YRS: >60 mL/min Normal 40-49 YRS: >58 mL/min Normal 50-59 YRS: >51 mL/min Normal 60-69 YRS: >45 mL/min Normal 70-79 YRS: >39 mL/min Normal 80 and above >32 mL/min NormalNORMAL RANGES Age WBC RBC HGB HCT MCV PLT Adult M 4.1-10.9 4.20-6.30 12.0-18.0 37.0-51.0 80-97 140-440 Adult F 4.1-10.9 4.04-5.48 12.0-18.0 37.0-51.0 80-97 140-440 0- 1 Yr 5.0-20.0 3.9-5.9 15-18 MV: 44 MV: 91 MV: 277 2-9 Yr. 6.0-17.0 3.8-5.4 11-13 MV: 37 MV: 78 MV: 300 10 Yrs. 5.0-13.0 3.8-5.4 12-15 MV: 39 MV: 80 MV: 250 NOTE: * FOR ADULT BLACK MALES AND FEMALES, NORMAL WBC IS 2.9-7.7 K/ML * FOR ADULT BLACK MALES AND FEMALES, NORMAL RBC,HGB, AND HCT IS 5% LESS SOURCE FOR DATA: [facility] 1800 OPERATION MANUAL( AUTOMATED BLOOD COUNTS AND DIFF.) APPENDIX B-3 MXD# 0.5 10E3/uL 0.0-1.8 [facility] ([facility] CLASSIFICATION CHOLESTEROL FO R ADULTS CHILDREN/ADOLESCENTS* DESIRABLE: <200 MG/DL <170 MG/DL BORDER-LINE HIGH RISK: 200-239 MG/DL 170-199 MG/DL HIGH RISK: >240 MG/DL >200 MG/DL CLASS. FOR PRIMARY LDL CHOL PREVENTION: LDL CHOL-CHILD/ADOLESCENTS* DESIRABLE: <130 MG/DL <110 MG/DL BORDERLINE-HIGH RISK: 130-159 MG/DL 110-129 MG/DL HIGH RISK: >160 MG/DL >130 MG/DL *CHILDREN AND ADOLESCENTS REPRESENTS INDIVIDUALA AGED 2-19 YEARS EXCLUSIVE. CHRONIC KIDNEY DISEASE STAGING PER NKF: MALE GFR INTERPRETATION: 20-49 YRS: >60 mL/min Normal 50-59 YRS: >56 mL/min Normal 60-69 YRS: >49 mL/min Normal 70-79 YRS: >42 mL/min Normal 80 and above >35 mL/min Normal FEMALE GRF INTERPRETATION: 20-39 YRS: >60 mL/min Normal 40-49 YRS: >58 mL/min Normal 50-59 YRS: >51 mL/min Normal 60-69 YRS: >45 mL/min Normal 70-79 YRS: >39 mL/min Normal 80 and above >32 mL/min NormalNORMAL RANGES Age WBC RBC HGB HCT MCV PLT Adult M 4.1-10.9 4.20-6.30 12.0-18.0 37.0-51.0 80-97 140-440 Adult F 4.1-10.9 4.04-5.48 12.0-18.0 37.0-51.0 80-97 140-440 0- 1 Yr 5.0-20.0 3.9-5.9 15-18 MV: 44 MV: 91 MV: 277 2-9 Yr. 6.0-17.0 3.8-5.4 11-13 MV: 37 MV: 78 MV: 300 10 Yrs. 5.0-13.0 3.8-5.4 12-15 MV: 39 MV: 80 MV: 250 NOTE: * FOR ADULT BLACK MALES AND FEMALES, NORMAL WBC IS 2.9-7.7 K/ML * FOR ADULT BLACK MALES AND FEMALES, NORMAL RBC,HGB, AND HCT IS 5% LESS SOURCE FOR DATA: [facility] 1800 OPERATION MANUAL( AUTOMATED BLOOD COUNTS AND DIFF.) APPENDIX B-3 MPV 10.2 fL 9.0-13.0 [facility] ([facility] CLASSIFICATION CHOLESTEROL FO R ADULTS CHILDREN/ADOLESCENTS* DESIRABLE: <200 MG/DL <170 MG/DL BORDER-LINE HIGH RISK: 200-239 MG/DL 170-199 MG/DL HIGH RISK: >240 MG/DL >200 MG/DL CLASS. FOR PRIMARY LDL CHOL PREVENTION: LDL CHOL-CHILD/ADOLESCENTS* DESIRABLE: <130 MG/DL <110 MG/DL BORDERLINE-HIGH RISK: 130-159 MG/DL 110-129 MG/DL HIGH RISK: >160 MG/DL >130 MG/DL *CHILDREN AND ADOLESCENTS REPRESENTS INDIVIDUALA AGED 2-19 YEARS EXCLUSIVE. CHRONIC KIDNEY DISEASE STAGING PER NKF: MALE GFR INTERPRETATION: 20-49 YRS: >60 mL/min Normal 50-59 YRS: >56 mL/min Normal 60-69 YRS: >49 mL/min Normal 70-79 YRS: >42 mL/min Normal 80 and above >35 mL/min Normal FEMALE GRF INTERPRETATION: 20-39 YRS: >60 mL/min Normal 40-49 YRS: >58 mL/min Normal 50-59 YRS: >51 mL/min Normal 60-69 YRS: >45 mL/min Normal 70-79 YRS: >39 mL/min Normal 80 and above >32 mL/min NormalNORMAL RANGES Age WBC RBC HGB HCT MCV PLT Adult M 4.1-10.9 4.20-6.30 12.0-18.0 37.0-51.0 80-97 140-440 Adult F 4.1-10.9 4.04-5.48 12.0-18.0 37.0-51.0 80-97 140-440 0- 1 Yr 5.0-20.0 3.9-5.9 15-18 MV: 44 MV: 91 MV: 277 2-9 Yr. 6.0-17.0 3.8-5.4 11-13 MV: 37 MV: 78 MV: 300 10 Yrs. 5.0-13.0 3.8-5.4 12-15 MV: 39 MV: 80 MV: 250 NOTE: * FOR ADULT BLACK MALES AND FEMALES, NORMAL WBC IS 2.9-7.7 K/ML * FOR ADULT BLACK MALES AND FEMALES, NORMAL RBC,HGB, AND HCT IS 5% LESS SOURCE FOR DATA: [facility] 1800 OPERATION MANUAL( AUTOMATED BLOOD COUNTS AND DIFF.) APPENDIX B-3 Procedure Vital Signs ID Date Data Source UNK Name Value Range Interpretation Code Description Data Source(s) Oxygen saturation in Arterial blood by Pulse oximetry 96 % 96 % [facility] ([facility] Body mass index (BMI) [Ratio] 34.1 kg/m2 34.1 k g/m2 [facility] ([facility] Parker body weight 142 [lb_av] 142 [lb_av] SKYLAR Barber ([facility] Body weight 211.00 [lb_av] 211.00 [lb_av] MED[facility] T ([facility] Body height 66 [in_i] 66 [in_i] [facility] ([facility] 5'6" Respiratory rate 16 /min 16 /min [facility] ( [facility] Heart rate 80 /min 80 /min [facility] ([facility] Body temperature 98.0 [degF] 98.0 [degF] [facility] ([facility] Diastolic blood pressure 82 mm[Hg] 82 mm[Hg] [facility] ([facility] Systolic blood pressure 144 mm[Hg] 144 mm[Hg] M EDENT ([facility] Body mass index (BMI) [Ratio] 30.7 kg/m2 30.7 k g/m2 [facility] ([facility]) Body weight 86.184 kg 86.184 kg [facility] ([facility] Body weight 190.00 [lb_av] 190.00 [lb_av] MEDEN T ([facility]) Body height 66 [in_i] 66 [in_i] [facility] ([facility] 5'6" Diastolic blood pressure 80 mm[Hg] 80 mm[Hg] [facility] Systolic blood pressure 160 mm[Hg] 160 mm[Hg] M EDENT ([facility]) Diastolic blood pressure 80 mm[Hg] 80 mm[Hg] [facility] ([facility]) Systolic blood pressure 160 mm[Hg] 160 mm[Hg] M [facility] ([facility]) Oxygen saturation in Arterial blood by Pulse oximetry 97 % 97 % [facility] ([facility] Body mass index (BMI) [Ratio] 32.0 kg/m2 32.0 k g/m2 [facility] ([facility] Parker body weight 142 [lb_av] 142 [lb_av] MEDEN T ([facility] Body weight 198.00 [lb_av] 198.00 [lb_av] MEDEN T ([facility] Body height 66 [in_i] 66 [in_i] [facility] ([facility] 5'6" Respiratory rate 16 /min 16 /min [facility] ( [facility] Heart rate 69 /min 69 /min [facility] ([facility] Body temperature 98.8 [degF] 98.8 [degF] [facility] ([facility] Diastolic blood pressure 66 mm[Hg] 66 mm[Hg] [facility] ([facility] Systolic blood pressure 122 mm[Hg] 122 mm[Hg] M EDENT ([facility] Diastolic blood pressure--sitting 71 mm[Hg] 71 mm[Hg] [facility] ([facility]) [place], adult cuff/LA Systolic blood pressure--sitting 132 mm[Hg] 132 mm[Hg] [facility] ([facility]) [place], adult cuff/LA Heart rate 65 /min 65 /min [facility] ([facility]) Body mass index (BMI) [Ratio] 32.0 kg/m2 32.0 k g/m2 [facility] ([facility]) Body height 66 [in_i] 66 [in_i] [facility] ([facility]) 5'6" Body weight 198.00 [lb_av] 198.00 [lb_av] MEDEN T ([facility])
[2020-09-09] MEDS ORDERED: NS 1,000 ML IV ONE (06:00)
[2020-09-09 06:28] LABS: BASO % 0.1 % (0.0-1.0); HEMATOCRIT 37.5 % (42.0-52.0); HEMOGLOBIN 12.6 g/dl (13.5-17.5); LYMPH # 1.5 10^3/uL (1.5-5.0); LYMPH % 10.7 % (24.0-44.0); MEAN CORPUSCULAR HEMOGLOBIN 29.6 pg (27.0-33.0); MEAN CORPUSCULAR HGB CONC 33.6 g/dl (32.0-36.5); MEAN CORPUSCULAR VOLUME 88.2 fl (80.0-96.0); MONO # 0.6 10^3/uL (0.0-0.8); MONO % 4.6 % (0.0-5.0); NEUTROPHILS # 11.7 10^3/uL (1.5-8.5); NEUTROPHILS % 83.9 % (36.0-66.0); PLATELET COUNT, AUTOMATED 231 10^3/uL (150-450); RED BLOOD COUNT 4.25 10^6/uL (4.30-6.10)
--- NOTE | 2020-09-09 06:39 | REPVR ---
PROCEDURE INFORMATION: Exam: XR Chest, 1 View Exam date and time: 09/09/20 (6:09am) Age: 65 years old Clinical indication: Covid work-up TECHNIQUE: Imaging protocol: Portable CXR Views: 1 view COMPARISON: Portable CXR of 10/03/18 FINDINGS: Comparison is made with a portable CXR done on 10/03/18. Stable heart size. S/P sternotomy. Streaky and hazy opacities at each lung base. The mid and upper lung zones remain clear. No significant pleural effusions. No pneumothorax. IMPRESSION: Hazy and streaky bibasilar opacities. No significant pleural effusions. Probable nonspecific bibasilar pneumonitis. Correlation and follow-up are suggested. Electronically signed by: Maddison Singleton On 09/09/2020 06:39:47 AM
[2020-09-09 06:41] LABS: INR 1.14; PROTHROMBIN TIME 14.9 SECONDS (12.5-14.3)
[2020-09-09 06:42] LABS: PARTIAL THROMBOPLASTIN TIME 31.2 SECONDS (24.2-38.5)
[2020-09-09 06:44] LABS: D-DIMER QUANT 1209.52 ng/ml (<500)
[2020-09-09] MEDS ORDERED: BACL10TA2 PO (06:49)
[2020-09-09] MEDS ORDERED: D-50CAP PO (06:49)
[2020-09-09] MEDS ORDERED: CIAL20TA PO (06:49)
[2020-09-09] MEDS ORDERED: PRED10TA2 PO (06:49)
[2020-09-09] MEDS ORDERED: TRIA1CR80 TOP (06:49)
[2020-09-09] MEDS ORDERED: VITMTA PO (06:49)
--- OUTSIDE RECORDS SUMMARY | 2020-09-09 06:52 | CCD ---
Author Author [facility] Organization [facility] Address Unknown Phone Unavailable Care Team Providers Care Case Resource Manager Name Role Phone CHEMAOL, Dwain MARSH MD [...] is protected by Article 27-F of the [facility] Public Health law. If you continue you may have access to information: Regarding HIV / AIDS; Provided by facilities licensed or operated by the [facility] Office of Mental Health; or Provided by the [facility] Office for People With Developmental Disabilities. If such information is present, then the following [facility] mandated warning applies: This information has been [...] law may result in a fine or custodial sentence or both. A general authorization for the release of medical or other information is NOT sufficient authorization for further disc losure. Family History Family Member Name Family Member Gender Family Member Status Date o f Status Description Data Source(s) Unknown Unknown Problem [facility]ENT ([facility]) Unknown Male Problem [facility] ([facility] ) () Unknown Female Problem [facility]ENT ([facility]) Encounters Encounter Providers Location Date Indications Data Source(s ) Outpatient Attender: Travis DUFFY [place] Office 12:00:00 PM EST MEDENT ([facility] Outpatient Attender: Travis DUFFY [place] [facility] 09:30:00 AM EDT MEDENT ([facility] Outpatient Attender: SALMA ALVARENGA MD Main Office 10/24/2019 08:15:00 AM EDT MEDENT ([facility]) Medications Medication Brand Name Start Date Product Form Dose Route Admi nistrative Instructions Pharmacy Instructions Status Indications Reaction Description Data Source(s) Baclofen 10 MG Oral Tablet Baclofen 08/31/2020 12:00:00 AM EST ORAL active [facility] ([facility] Solu-Medrol Solu-Medrol 08/31/2020 12:00:00 AM EST completed [facility] ([facility] Prednisone 10 MG Oral Tablet Prednisone [...] Topical Cream Triamcinolone Acetonide 12/02/2019 12:00:00 AM EDT active M EDENT ([facility] Insurance Providers Payer name Policy type / Coverage type Policy ID Covered alliance party ID Covered alliance party's relationship to brown Policy Brown Plan Information [facility] [id number] [place] [id number] MEDICARE [id number] Commercial [id number] Fa tommy Dependent [id number] [place] PHCS Ppo Medigap Part B [id number] Self [id number] [place] BC/BS Medigap Part B [id number] Self [id number] [place] [facility] [id number] Self [id number] Blue Ppo Medigap Part B [id number] Self [id number] Umr Commercial [id number] Fa tommy Dependent [id number] UMR O [id number] S [id number] [employer] [id number] [id number] [place] Health Maintenance Organization (HMO) [id number] Fa tommy Dependent [id number] [place] PHCS Ppo Medigap Part B [id number] Self [id number] [place] Commercial [id number] Family Dependent [id number] [employer] PPO O [id number] P [id number] [place] BC/BS Medigap Part B Self [place] BC[facility] Part B Self Blue Ppo Medigap Part B Self [place] Commercial Family Dependent [place] Commercial Family Dependent [employer]OM[employer] O [id number] SP [id number] SELF PAY 2 UNAVAILABLE 1 UNAVAILA BLE [employer] PPO 2 [id number] BC BLUE CARD 1 [id number] BC OUT OF STATE 1 [id number] Surgeries/Procedures Procedure Description Date Indications Data Source(s) DUPLEX SCAN EXTRACRANIAL ART COMPL BI STUDY 07/07/2020 12:00:00 AM EST MEDENT ([facility]) ECG ROUTINE ECG W/LEAST 12 LDS W/I&R 10/24/2019 12:00: 00 AM EDT MEDENT ([facility]) ECHO TTHRC R-T 2D W/WOM-MODE COMPL SPEC&COLR DOP 07/22 12:00:00 AM EST MEDENT ([facility]) Results ID Date Data Source [id number] [...] Antigen NYSDOH This lab was ordered by [facility] and reported by [facility]. ID Date Data Source [id number] 07/07/2020 08:37:00 AM EST MEDENT ([facility]) Name Value Range Interpretation Code Description Data Francoise rce(s) Supporting Document(s) Carotid Ultrasound Bilateral Laboratory test result MEDENT ([facility]) ID Date Data Source [id number] 12/02/2019 01:05:00 PM EDT MEDENT ([facility] Name Value Range Interpretation Code Description Data Francoise rce(s) Supporting Document(s) Prostate specific Ag [Mass/volume] in Serum or Plasma 1.41 ng/mL 0.0- 4.0 [facility] ([facility] ID Date Data Source [id number] 12/02/2019 10:24:00 AM EDT MED[facility] ([facility] Name Value Range Interpretation Code Description Data Francoise rce(s) Supporting Document(s) Hemoglobin A1c/Hemoglobin.total in Blood 5.6 % 4.50-6.20 [facility] ([facility] ID Date Data Source [id number] 12/02/2019 10:09:00 AM EDT MEDENT ([facility] Name Value Range Interpretation Code Description Data Francoise rce(s) Supporting Document(s) Calcidiol [Mass/volume] in Serum or Plasma 69.8 ng/mL 30.0-100.0 MEDENT ([facility] Vitamin D deficiency has been defined by the [place] of Medicine and an Endocrine Society practice guideline as a level of serum 25-OH vitamin D less than 20 ng/mL (1,2). The Endocrine Society went on to further define vitamin D insufficiency as a level between 21 and 29 ng/mL (2). 1. IOM ([place] of Medicine). 2010. Di etary reference intakes for calcium and D. [place]: The National GTI Press. 2. Oh MF, Susan CABALLERO, Virgilio ramos CODY, et al. Evaluation, treatment, and prevention of vitamin D deficiency: an Endocrine Society clinical practice guideline. JCEM. 2010; 96(6):6371-30. ID Date Data Source [id number] 12/02/2019 10:07:00 AM EDT MEDENT ([facility] Name Value Range Interpretation Code Description Data Francoise rce(s) Supporting Document(s) Thyrotropin [Units/volume] in Serum or Plasma 2.380 ulU/mL 0.60-4.8 MEDENT ([facility] ID Date Data Source [id number] 12/02/2019 10:07:00 AM EDT MEDENT ([facility] Name Value Range Interpretation Code Description Data Francoise rce(s) Supporting Document(s) Trig 108 mg/dL 35-200 MEDENT ([facility] CLASSIFICATION CHOLESTEROL FO [...] APPENDIX B-3 Chol 154 mg/dL 0-200 [facility] CLASSIFICATION CHOLESTEROL FO [...] HCT IS 5% LESS SOURCE FOR DATA: [employer] 1800 OPERATION MANUAL( AUTOMATED BLOOD COUNTS AND DIFF.) APPENDIX B-3 Cho/HDL Ratio 2.8 CALC MEDENT ([facility] CLASSIFICATION CHOLESTEROL FO R [...] HCT IS 5% LESS SOURCE FOR DATA: [email or web address] DYN 1800 OPERATION MANUAL( AUTOMATED BLOOD COUNTS [...] HCT IS 5% LESS SOURCE FOR DATA: [employer] 1800 OPERATION MANUAL( AUTOMATED BLOOD COUNTS AND DIFF.) APPENDIX B-3 Cholesterol in HDL [Mass/volume] in Serum or Plasma 55 mg/dL 35-55 [facility] CLASSIFICATION CHOLESTEROL FO [...] HCT IS 5% LESS SOURCE FOR DATA: [employer] 1800 OPERATION MANUAL( AUTOMATED BLOOD COUNTS AND DIFF.) APPENDIX B-3 ID Date Data Source [id number] 12/02/2019 10:07:00 AM KEITH GARCIA ([facility] Name Value Range Interpretation Code Description Data Francoise rce(s) Supporting Document(s) Glu 106 mg/dL 70-110 RADHA ([facility] CLASSIFICATION CHOLESTEROL [...] HCT IS 5% LESS SOURCE FOR DATA: [email or web address] DYN 1800 OPERATION MANUAL( AUTOMATED BLOOD COUNTS AND DIFF.) APPENDIX B-3 BUN/Creatinine Ratio 13.4 CALC MEDENT ([facility] CLASSIFICATION CHOLESTEROL FO [...] HCT IS 5% LESS SOURCE FOR DATA: [email or web address] DYN 1800 OPERATION MANUAL( AUTOMATED BLOOD COUNTS AND DIFF.) APPENDIX B-3 BUN 14 mg/dL 8- [facility] CLASSIFICATION CHOLESTEROL FO [...] B-3 K 4.1 mmol/L 3.5-5.1 MEDENT ([facility] CLASSIFICATION CHOLESTEROL FO R ADULTS [...] HCT IS 5% LESS SOURCE FOR DATA: [employer] 1800 OPERATION MANUAL( AUTOMATED BLOOD COUNTS AND DIFF.) APPENDIX B-3 CL 100.9 mmol/L 98.0-107.0 [facility] CLASSIFICATION CHOLESTEROL FO R [...] DIFF.) APPENDIX B-3 Na 140 mmol/L 136-145 [facility] ([facility] CLASSIFICATION CHOLESTEROL FO R ADULTS [...] DIFF.) APPENDIX B-3 Co2 25.7 mmol/L 22.0-29.0 MEDEZ2CAD ([facility] CLASSIFICATION CHOLESTEROL FO R ADULTS [...] HCT IS 5% LESS SOURCE FOR DATA: [email or web address] DYN 1800 OPERATION MANUAL( AUTOMATED BLOOD COUNTS [...] HCT IS 5% LESS SOURCE FOR DATA: [email or web address] DYN 1800 OPERATION MANUAL( AUTOMATED BLOOD COUNTS [...] HCT IS 5% LESS SOURCE FOR DATA: [email or web address] DYN 1800 OPERATION MANUAL( AUTOMATED BLOOD COUNTS AND DIFF.) APPENDIX B-3 A/G Ratio 2.3 CALC [facility] ([facility] CLASSIFICATION CHOLESTEROL FO [...] HCT IS 5% LESS SOURCE FOR DATA: [employer] 1800 OPERATION MANUAL( AUTOMATED BLOOD COUNTS AND DIFF.) APPENDIX B-3 Globulin 2.2 CALC MEDENT ([facility] CLASSIFICATION CHOLESTEROL FO [...] APPENDIX B-3 Ast (Sgot) 28 U/L 0-40 [facility] ([facility] CLASSIFICATION CHOLESTEROL FO R ADULTS [...] HCT IS 5% LESS SOURCE FOR DATA: [email or web address] DYN 1800 OPERATION MANUAL( AUTOMATED BLOOD COUNTS AND DIFF.) APPENDIX B-3 Alp 59.7 U/L 40-129 [facility] CLASSIFICATION CHOLESTEROL FO [...] HCT IS 5% LESS SOURCE FOR DATA: [employer] 1800 OPERATION MANUAL( AUTOMATED BLOOD COUNTS AND DIFF.) APPENDIX B-3 Alt (SGPT) 28 U/L 0-41 [facility] ([facility] CLASSIFICATION CHOLESTEROL FO R ADULTS [...] HCT IS 5% LESS SOURCE FOR DATA: [employer] 1800 OPERATION MANUAL( AUTOMATED BLOOD COUNTS AND DIFF.) APPENDIX B-3 Tbili 0.54 mg/dL 0.0-1.2 [facility] ([facility] CLASSIFICATION CHOLESTEROL FO R ADULTS [...] DIFF.) APPENDIX B-3 Anion Gap 18 mmol/L [facility] ([facility] CLASSIFICATION CHOLESTEROL [...] HCT IS 5% LESS SOURCE FOR DATA: [email or web address] DYN 1800 OPERATION MANUAL( AUTOMATED BLOOD COUNTS [...] HCT IS 5% LESS SOURCE FOR DATA: [employer] 1800 OPERATION MANUAL( AUTOMATED BLOOD COUNTS AND DIFF.) APPENDIX B-3 eGFR Non-Afr. Australian 78 # [facility] ([facility] [...] HCT IS 5% LESS SOURCE FOR DATA: [employer] 1800 OPERATION MANUAL( AUTOMATED BLOOD COUNTS AND DIFF.) APPENDIX B-3 ID Date Data Source [id number] 12/02/2019 10:07:00 AM EDT MED[facility] ([facility] Name Value Range Interpretation Code Description Data Francoise rce(s) Supporting Document(s) RBC 4.97 10E6/uL 4.20-6.30 [facility] ([facility] CLASSIFICATION CHOLESTEROL [...] HCT IS 5% LESS SOURCE FOR DATA: [employer] 1800 OPERATION MANUAL( AUTOMATED BLOOD COUNTS AND DIFF.) APPENDIX B-3 WBC 5.8 10E3/uL 4.1-10.9 MED[facility] ([facility] CLASSIFICATION CHOLESTEROL FO R ADULTS [...] APPENDIX B-3 HGB 15.1 g/dL 12.0-18.0 MEDENT ([facility] CLASSIFICATION CHOLESTEROL [...] HCT IS 5% LESS SOURCE FOR DATA: [email or web address] DYN 1800 OPERATION MANUAL( AUTOMATED BLOOD COUNTS [...] DIFF.) APPENDIX B-3 PLT 221 10E3/uL 140-440 [facility] CLASSIFICATION CHOLESTEROL FO R ADULTS [...] HCT IS 5% LESS SOURCE FOR DATA: [employer] 1800 OPERATION MANUAL( AUTOMATED BLOOD COUNTS AND DIFF.) APPENDIX B-3 MCH 30.4 pg 26.0-32.0 [facility] CLASSIFICATION CHOLESTEROL [...] HCT IS 5% LESS SOURCE FOR DATA: [email or web address] DYN 1800 OPERATION MANUAL( AUTOMATED BLOOD COUNTS AND DIFF.) APPENDIX B-3 MCHC 33.6 g/dL 31.0-36.0 [facility] ([facility] CLASSIFICATION CHOLESTEROL FO [...] DIFF.) APPENDIX B-3 Neut% 55.0 % 37.0-92.0 [facility] ([facility] CLASSIFICATION CHOLESTEROL [...] HCT IS 5% LESS SOURCE FOR DATA: [employer] 1800 OPERATION MANUAL( AUTOMATED BLOOD COUNTS AND DIFF.) APPENDIX B-3 Lym% 37.2 % 10.0-58.5 [facility] [...] HCT IS 5% LESS SOURCE FOR DATA: [email or web address] DYN 1800 OPERATION MANUAL( AUTOMATED BLOOD COUNTS AND DIFF.) APPENDIX B-3 RDW-CV 13.6 % 11.5-14.5 [facility] [...] HCT IS 5% LESS SOURCE FOR DATA: [employer] 1800 OPERATION MANUAL( AUTOMATED BLOOD COUNTS AND DIFF.) APPENDIX B-3 MXD% 7.8 % 0.1-24.0 [facility] [...] HCT IS 5% LESS SOURCE FOR DATA: [employer] 1800 OPERATION MANUAL( AUTOMATED BLOOD COUNTS AND DIFF.) APPENDIX B-3 Lym# 2.2 10E3/uL 0.6-4.1 MED[facility] ([facility] CLASSIFICATION CHOLESTEROL FO R ADULTS [...] DIFF.) APPENDIX B-3 Neut# 3.1 % 2.0-7.8 [facility] ([facility] CLASSIFICATION CHOLESTEROL [...] HCT IS 5% LESS SOURCE FOR DATA: [email or web address] DYN 1800 OPERATION MANUAL( AUTOMATED BLOOD COUNTS AND DIFF.) APPENDIX B-3 MXD# 0.5 10E3/uL 0.0-1.8 [facility] ([facility] CLASSIFICATION CHOLESTEROL FO R ADULTS [...] HCT IS 5% LESS SOURCE FOR DATA: [employer] 1800 OPERATION MANUAL( AUTOMATED BLOOD COUNTS AND [...] HCT IS 5% LESS SOURCE FOR DATA: [employer] 1800 OPERATION MANUAL( AUTOMATED BLOOD COUNTS AND DIFF.) APPENDIX B-3 Procedure Vital Signs ID Date Data Source UNK Name Value Range Interpretation Code Description Data Source(s) Oxygen saturation in Arterial blood by Pulse oximetry 96 % 96 % [facility] ([facility] Body mass index (BMI) [Ratio] 34.1 kg/m2 34.1 k g/m2 [facility] ([facility] Rudolph body weight 142 [lb_av] 142 [lb_av] MEDEN T ([facility] Body weight 211.00 [lb_av] 211.00 [lb_av] MEDEN T ([facility] Body height 66 [in_i] 66 [in_i] MED[facility] ([facility] 5'6" Respiratory rate 16 /min 16 /min MEDENT ( [facility] Heart rate 80 /min 80 /min MED[facility] ([facility] Body temperature 98.0 [degF] 98.0 [degF] MEDENT ([facility] Diastolic blood pressure 82 mm[Hg] 82 mm[Hg] MED[facility] ([facility] Systolic blood pressure 144 mm[Hg] 144 mm[Hg] M EDENT ([facility] Body mass index (BMI) [Ratio] 30.7 kg/m2 30.7 k g/m2 MED[facility] ([facility]) Body weight 86.184 kg 86.184 kg MED[facility] ([facility] Body weight 190.00 [lb_av] 190.00 [lb_av] MEDEN T ([facility]) Body height 66 [in_i] 66 [in_i] MED[facility] ([facility]) 5'6" Diastolic blood pressure 80 mm[Hg] 80 mm[Hg] [facility] ([facility] Systolic blood pressure 160 mm[Hg] 160 mm[Hg] M EDENT ([facility] Diastolic blood pressure 80 mm[Hg] 80 mm[Hg] [facility] ([facility]) Systolic blood pressure 160 mm[Hg] 160 mm[Hg] M EDENT ([facility]) Oxygen saturation in Arterial blood by Pulse oximetry 97 % 97 % MED[facility] ([facility] Body mass index (BMI) [Ratio] 32.0 kg/m2 32.0 k g/m2 MEDENT ([facility] Rudolph body weight 142 [lb_av] 142 [lb_av] MEDEN T ([facility] Body weight 198.00 [lb_av] 198.00 [lb_av] MEDEN T ([facility] Body height 66 [in_i] 66 [in_i] [facility] ([facility] 5'6" Respiratory rate 16 /min 16 /min MEDENT ( [facility] Heart rate 69 /min 69 /min MED[facility] ([facility] Body temperature 98.8 [degF] 98.8 [degF] MEDENT ([facility] Diastolic blood pressure 66 mm[Hg] 66 mm[Hg] MEDENT ([facility] Systolic blood pressure 122 mm[Hg] 122 mm[Hg] M EDENT ([facility] Diastolic blood pressure--sitting 71 mm[Hg] 71 mm[Hg] MEDENT ([facility]) [place], adult cuff/LA Systolic blood pressure--sitting 132 mm[Hg] 132 mm[Hg] MEDENT ([facility]) [place], adult cuff/LA Heart rate 65 /min 65 /min MED[facility] ([facility]) Body mass index (BMI) [Ratio] 32.0 kg/m2 32.0 k g/m2 MEDENT ([facility]) Body height 66 [in_i] 66 [in_i] MEDENT ([facility]) 5'6" Body weight 198.00 [lb_av] 198.00 [lb_av] MEDEN T ([facility])
[2020-09-09 07:09] LABS: ALBUMIN 2.7 GM/DL (3.2-5.2); ALT/SGPT 92 U/L (12-78); BILIRUBIN,TOTAL 0.3 MG/DL (0.2-1.0); BLOOD UREA NITROGEN 54 MG/DL (7-18); CALCIUM LEVEL 8.5 MG/DL (8.8-10.2); CARBON DIOXIDE LEVEL 27 MEQ/L (21-32); CHLORIDE LEVEL 99 MEQ/L (98-107); CK-MB VALUE MASS < 1.0 NG/ML (<3.6); CPK CREATINE PHOSPHOKINASE 60 U/L (39-308); CREATININE FOR GFR 1.48 MG/DL (0.70-1.30); FERRITIN 3322 NG/ML (26-388); GLOMERULAR FILTRATION RATE 50.6 (>49); GLUCOSE, FASTING 145 MG/DL (70-100); LDH LACTATE DEHYDROGENASE 338 U/L (87-241); MB/CK RELATIVE INDEX 1.67 (< OR =4); POTASSIUM SERUM 4.1 MEQ/L (3.5-5.1); SODIUM LEVEL 137 MEQ/L (136-145); TOTAL PROTEIN 6.5 GM/DL (6.4-8.2)
[2020-09-09] MEDS ORDERED: ACETAMINOPHEN 650 MG SUPP PR ONE (07:45)
[2020-09-09] MEDS ORDERED: CLOPIDOGREL 75 MG TAB PO SCH (09:00)
[2020-09-09] MEDS ORDERED: ASPIRIN 81 MG ENTERIC TAB PO SCH (09:00)
--- OUTSIDE RECORDS SUMMARY | 2020-09-09 11:38 | CCD ---
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 If you continue you may have access to information: Regarding HIV / AIDS; Provided by facilities licensed or operated by the [facility] Office of Mental Health; or Provided by the [facility] Office for People With Developmental Disabilities. If such information is present, then the following [facility] mandated warning applies: This information has [...] law may result in a fine or nursing home sentence or both. A general authorization for the release of medical or other information is NOT sufficient authorization for further disc losure. Family History Family Member Name Family Member Gender Family Member Status Date o f Status Description Data Source(s) Unknown Unknown Problem [facility]ENT ([facility]) Unknown Male Problem [facility] ([facility] ) () Unknown Female Problem [facility]ENT ([facility]) Encounters Encounter Providers Location Date Indications Data Source(s ) Outpatient Attender: Travis DUFFY [place] [facility] 12:00:00 PM EST MEDENT ([facility] Outpatient Attender: Travis DUFFY [place] [facility] 09:30:00 AM EDT MEDENT ([facility] Outpatient Attender: SALMA ALVARENGA MD Main Office 10/24/2019 08:15:00 AM EDT MEDENT ([facility]) Medications Medication Brand Name Start [...] relationship to brown Policy Brown Plan Information [facility] [id number] WI2 [id number] MEDICARE [id number] Commercial [id number] Fa tommy Dependent [id number] [place] PHCS Ppo Medigap Part B [id number] Self [id number] [place] BC/BS Medigap Part B [id number] Self [id number] [place] BC[facility]BS [facility] B [id number] Self [id number] Blue Ppo Medigap Part B [id number] Self [id number] Umr Commercial [id number] Fa tommy Dependent [id number] UMR O [id number] S [id number] [employer] [id number] WI2 [id number] [employer] Health Maintenance Organization (HMO) [id number] Fa tommy Dependent [id number] [place] PHCS Ppo Medigap Part B [id number] Self [id number] [place] Commercial [id number] Family Dependent [id number] [employer] PPO O [id number] P [id number] [place] BC/BS Medigap Part B Self [place] BC/[facility] Part B Self Blue Ppo Medigap Part B Self [place] Commercial Family Dependent [place] Commercial Family Dependent [employer] O [id number] SP [id number] SELF PAY 2 UNAVAILABLE 1 UNAVAILA BLE [employer] PPO 2 [id number] 2 [id number] BC BLUE CARD 1 [id number] BC OUT OF STATE 1 [id number] Surgeries/Procedures Procedure Description Date Indications Data Source(s) DUPLEX SCAN EXTRACRANIAL ART COMPL BI STUDY 07/07/2020 12:00:00 AM EST MEDENT ([facility]) ECG ROUTINE ECG W/LEAST 12 LDS W/I&R 10/24/2019 12:00: 00 AM EDT MEDENT ([facility]) ECHO TTHRC R-T 2D W/WOM-MODE COMPL SPEC&COLR DOP 07/22 12:00:00 AM EST MEDENT ([facility]) Results ID Date Data Source [id number] [...] [facility]. ID Date Data Source [id number] 07/07/2020 08:37:00 AM EST MEDENT ([facility]) Name Value Range Interpretation Code Description Data Francoise rce(s) Supporting Document(s) Carotid Ultrasound Bilateral Laboratory test result MEDENT ([facility]) ID Date Data Source [id number] 12/02/2019 01:05:00 PM EDT MEDENT ([facility] Name Value Range Interpretation Code Description Data Francoise rce(s) Supporting Document(s) Prostate specific Ag [Mass/volume] in Serum or Plasma 1.41 ng/mL 0.0- 4.0 [facility] ([facility] ID Date Data Source [id number] 12/02/2019 10:24:00 AM EDT MED[facility] ([facility] Name Value Range Interpretation Code Description Data Francoise rce(s) Supporting Document(s) Hemoglobin A1c/Hemoglobin.total in Blood 5.6 % 4.50-6.20 [facility] ([facility] ID Date Data Source [id number] 12/02/2019 10:09:00 AM EDT MEDENT ([facility] Name Value Range Interpretation Code Description Data Francoise rce(s) Supporting Document(s) Calcidiol [Mass/volume] in Serum or Plasma 69.8 ng/mL 30.0-100.0 MEDENT ([facility] Vitamin D deficiency has been defined by the [place] of Medicine and an Endocrine Society practice guideline as a level of serum 25-OH vitamin D less than 20 ng/mL (1,2). The Endocrine Society went on to further define vitamin D insufficiency as a level between 21 and 29 ng/mL (2). 1. IOM ([place] of Medicine). 2010. Di etary reference intakes for calcium and D. [place]: The National [employer]. 2. Oh MF, Susan CABALLERO, Virgilio ramos CODY, et al. Evaluation, treatment, and prevention of vitamin D deficiency: an Endocrine Society clinical practice guideline. JCEM. 2010; 96(5):2971-30. ID Date Data Source [id number] 12/02/2019 10:07:00 AM EDT MEDENT ([facility] Name Value Range Interpretation Code Description Data Francoise rce(s) Supporting Document(s) Thyrotropin [Units/volume] in Serum or Plasma 2.380 ulU/mL 0.60-4.8 MEDENT ([facility] ID Date Data Source [id number] 12/02/2019 10:07:00 AM EDT MEDENT ([facility] Name Value Range Interpretation Code Description Data Francoise rce(s) Supporting Document(s) Trig 108 mg/dL 35-200 MEDENT ([facility] CLASSIFICATION CHOLESTEROL FO [...] APPENDIX B-3 Chol 154 mg/dL 0-200 [facility] ([facility] CLASSIFICATION CHOLESTEROL FO [...] HCT IS 5% LESS SOURCE FOR DATA: [employer] 1800 OPERATION MANUAL( AUTOMATED BLOOD COUNTS AND DIFF.) APPENDIX B-3 Cho/HDL Ratio 2.8 CALC MEDENT ([facility] CLASSIFICATION CHOLESTEROL FO R [...] HCT IS 5% LESS SOURCE FOR DATA: [employer] DYN 1800 OPERATION MANUAL( AUTOMATED BLOOD COUNTS [...] HCT IS 5% LESS SOURCE FOR DATA: [employer] 1800 OPERATION MANUAL( AUTOMATED BLOOD COUNTS AND DIFF.) APPENDIX B-3 Cholesterol in HDL [Mass/volume] in Serum or Plasma 55 mg/dL 35-55 [facility] CLASSIFICATION CHOLESTEROL FO [...] HCT IS 5% LESS SOURCE FOR DATA: [employer] 1800 OPERATION MANUAL( AUTOMATED BLOOD COUNTS AND DIFF.) APPENDIX B-3 ID Date Data Source [id number] 12/02/2019 10:07:00 AM KEITH GARCIA ([facility] Name Value Range Interpretation Code Description Data Francoise rce(s) Supporting Document(s) Glu 106 mg/dL 70-110 RADHA ([facility] CLASSIFICATION CHOLESTEROL [...] HCT IS 5% LESS SOURCE FOR DATA: [employer] DYN 1800 OPERATION MANUAL( AUTOMATED BLOOD COUNTS AND DIFF.) APPENDIX B-3 BUN/Creatinine Ratio 13.4 CALC MEDENT ([facility] CLASSIFICATION CHOLESTEROL FO R [...] HCT IS 5% LESS SOURCE FOR DATA: [employer] DYN 1800 OPERATION MANUAL( AUTOMATED BLOOD COUNTS AND DIFF.) APPENDIX B-3 BUN 14 mg/dL 8- [facility] ([facility] CLASSIFICATION CHOLESTEROL FO [...] HCT IS 5% LESS SOURCE FOR DATA: [employer] 1800 OPERATION MANUAL( AUTOMATED BLOOD COUNTS AND DIFF.) APPENDIX B-3 CL 100.9 mmol/L 98.0-107.0 [facility] ([facility] CLASSIFICATION CHOLESTEROL FO R [...] DIFF.) APPENDIX B-3 Na 140 mmol/L 136-145 [facility] ([facility] [place] CLASSIFICATION CHOLESTEROL FO R ADULTS [...] DIFF.) APPENDIX B-3 Co2 25.7 mmol/L 22.0-29.0 [facility] ([facility] CLASSIFICATION CHOLESTEROL FO [...] HCT IS 5% LESS SOURCE FOR DATA: [employer] DYN 1800 OPERATION MANUAL( AUTOMATED BLOOD COUNTS [...] HCT IS 5% LESS SOURCE FOR DATA: [employer] DYN 1800 OPERATION MANUAL( AUTOMATED BLOOD COUNTS [...] HCT IS 5% LESS SOURCE FOR DATA: [employer] DYN 1800 OPERATION MANUAL( AUTOMATED BLOOD COUNTS AND DIFF.) APPENDIX B-3 A/G Ratio 2.3 CALC [facility] ([facility] CLASSIFICATION CHOLESTEROL FO [...] HCT IS 5% LESS SOURCE FOR DATA: [employer] 1800 OPERATION MANUAL( AUTOMATED BLOOD COUNTS AND DIFF.) APPENDIX B-3 Globulin 2.2 CALC MED[facility] ([facility] CLASSIFICATION CHOLESTEROL FO [...] APPENDIX B-3 Ast (Sgot) 28 U/L 0-40 [facility] ([facility] CLASSIFICATION CHOLESTEROL FO R [...] HCT IS 5% LESS SOURCE FOR DATA: [employer] DYN 1800 OPERATION MANUAL( AUTOMATED BLOOD COUNTS AND DIFF.) APPENDIX B-3 Alp 59.7 U/L 40-129 [facility] ([facility] CLASSIFICATION CHOLESTEROL FO [...] HCT IS 5% LESS SOURCE FOR DATA: [employer] 1800 OPERATION MANUAL( AUTOMATED BLOOD COUNTS AND DIFF.) APPENDIX B-3 Alt (SGPT) 28 U/L 0-41 [facility] ([facility] [place] CLASSIFICATION CHOLESTEROL FO R ADULTS [...] HCT IS 5% LESS SOURCE FOR DATA: [employer] 1800 OPERATION MANUAL( AUTOMATED BLOOD COUNTS AND DIFF.) APPENDIX B-3 Tbili 0.54 mg/dL 0.0-1.2 MED[facility] ([facility] [place] CLASSIFICATION CHOLESTEROL FO R ADULTS [...] DIFF.) APPENDIX B-3 Anion Gap 18 mmol/L [facility] ([facility] CLASSIFICATION CHOLESTEROL FO R [...] HCT IS 5% LESS SOURCE FOR DATA: [employer] DYN 1800 OPERATION MANUAL( AUTOMATED BLOOD COUNTS [...] HCT IS 5% LESS SOURCE FOR DATA: [employer] 1800 OPERATION MANUAL( AUTOMATED BLOOD COUNTS AND DIFF.) APPENDIX B-3 eGFR Non-Afr. Honduran 78 # [facility] ([facility] [...] HCT IS 5% LESS SOURCE FOR DATA: [employer] 1800 OPERATION MANUAL( AUTOMATED BLOOD COUNTS AND DIFF.) APPENDIX B-3 ID Date Data Source [id number] 12/02/2019 10:07:00 AM EDT MEDENT ([facility]amil y [...] HCT IS 5% LESS SOURCE FOR DATA: [employer] 1800 OPERATION MANUAL( AUTOMATED BLOOD COUNTS AND DIFF.) APPENDIX B-3 WBC 5.8 10E3/uL 4.1-10.9 MEDENT ([facility] CLASSIFICATION CHOLESTEROL FO [...] APPENDIX B-3 HGB 15.1 g/dL 12.0-18.0 MEDENT ([facility] CLASSIFICATION CHOLESTEROL [...] HCT IS 5% LESS SOURCE FOR DATA: [employer] DYN 1800 OPERATION MANUAL( AUTOMATED BLOOD COUNTS [...] DIFF.) APPENDIX B-3 PLT 221 10E3/uL 140-440 [facility] ([facility] CLASSIFICATION CHOLESTEROL FO [...] HCT IS 5% LESS SOURCE FOR DATA: [employer] 1800 OPERATION MANUAL( AUTOMATED BLOOD COUNTS AND DIFF.) APPENDIX B-3 MCH 30.4 pg 26.0-32.0 [facility] ([facility] CLASSIFICATION CHOLESTEROL FO R [...] HCT IS 5% LESS SOURCE FOR DATA: [employer] DYN 1800 OPERATION MANUAL( AUTOMATED BLOOD COUNTS AND DIFF.) APPENDIX B-3 MCHC 33.6 g/dL 31.0-36.0 [facility] ([facility] CLASSIFICATION CHOLESTEROL FO [...] DIFF.) APPENDIX B-3 Neut% 55.0 % 37.0-92.0 [facility] ([facility] CLASSIFICATION [...] HCT IS 5% LESS SOURCE FOR DATA: [employer] 1800 OPERATION MANUAL( AUTOMATED BLOOD COUNTS AND DIFF.) APPENDIX B-3 Lym% 37.2 % 10.0-58.5 [facility] ([facility] CLASSIFICATION [...] HCT IS 5% LESS SOURCE FOR DATA: [employer] DYN 1800 OPERATION MANUAL( AUTOMATED BLOOD COUNTS AND DIFF.) APPENDIX B-3 RDW-CV 13.6 % 11.5-14.5 [facility] ([facility] CLASSIFICATION [...] HCT IS 5% LESS SOURCE FOR DATA: [employer] 1800 OPERATION MANUAL( AUTOMATED BLOOD COUNTS AND DIFF.) APPENDIX B-3 MXD% 7.8 % 0.1-24.0 [facility] ([facility] CLASSIFICATION [...] HCT IS 5% LESS SOURCE FOR DATA: [employer] 1800 OPERATION MANUAL( AUTOMATED BLOOD COUNTS AND DIFF.) APPENDIX B-3 Lym# 2.2 10E3/uL 0.6-4.1 MED[facility] ([facility] CLASSIFICATION CHOLESTEROL FO [...] HCT IS 5% LESS SOURCE FOR DATA: [employer] DYN 1800 OPERATION MANUAL( AUTOMATED BLOOD COUNTS AND DIFF.) APPENDIX B-3 Neut# 3.1 % 2.0-7.8 [facility] ([facility] CLASSIFICATION [...] HCT IS 5% LESS SOURCE FOR DATA: [employer] DYN 1800 OPERATION MANUAL( AUTOMATED BLOOD COUNTS AND DIFF.) APPENDIX B-3 MXD# 0.5 10E3/uL 0.0-1.8 [facility] ([facility] CLASSIFICATION CHOLESTEROL FO [...] HCT IS 5% LESS SOURCE FOR DATA: [employer] 1800 OPERATION MANUAL( AUTOMATED BLOOD COUNTS AND [...] HCT IS 5% LESS SOURCE FOR DATA: [employer] 1800 OPERATION MANUAL( AUTOMATED BLOOD COUNTS AND DIFF.) APPENDIX B-3 Procedure Vital Signs ID Date Data Source UNK Name Value Range Interpretation Code Description Data Source(s) Oxygen saturation in Arterial blood by Pulse oximetry 96 % 96 % [facility] ([facility] Body mass index (BMI) [Ratio] 34.1 kg/m2 34.1 k g/m2 [facility] ([facility] [place] body weight 142 [lb_av] 142 [lb_av] MEDEN T ([facility] Body weight 211.00 [lb_av] 211.00 [lb_av] MEDEN T ([facility] Body height 66 [in_i] 66 [in_i] MEDENT ([facility] 5'6" Respiratory rate 16 /min 16 /min MEDENT ( [facility] Heart rate 80 /min 80 /min MED[facility] ([facility] Body temperature 98.0 [degF] 98.0 [degF] MED[facility] ([facility] Diastolic blood pressure 82 mm[Hg] 82 mm[Hg] MED[facility] ([facility] Systolic blood pressure 144 mm[Hg] 144 mm[Hg] M EDENT ([facility] Body mass index (BMI) [Ratio] 30.7 kg/m2 30.7 k g/m2 MEDENT ([facility]) Body weight 86.184 kg 86.184 kg [facility] ([facility] Body weight 190.00 [lb_av] 190.00 [lb_av] MEDEN T ([facility]) Body height 66 [in_i] 66 [in_i] [facility] ([facility]) 5'6" Diastolic blood pressure 80 mm[Hg] 80 [...] Pulse oximetry 97 % 97 % MED[facility] ([facility] Body mass index (BMI) [Ratio] 32.0 kg/m2 32.0 k g/m2 MED[facility] ([facility] [place] body weight 142 [lb_av] 142 [lb_av] MEDEN T ([facility] Body weight 198.00 [lb_av] 198.00 [lb_av] MEDEN T ([facility] Body height 66 [in_i] 66 [in_i] MEDENT ([facility] 5'6" Respiratory rate 16 /min 16 /min MEDENT ( [facility] Heart rate 69 /min 69 /min MEDENT ([facility] Body temperature 98.8 [degF] 98.8 [degF] MED[facility] ([facility] Diastolic blood pressure 66 mm[Hg] 66 mm[Hg] MED[facility] ([facility] Systolic blood pressure 122 mm[Hg] 122 mm[Hg] M EDENT ([facility] Diastolic blood pressure--sitting 71 mm[Hg] 71 mm[Hg] MEDENT ([facility]) [place], adult cuff/LA Systolic blood pressure--sitting 132 mm[Hg] 132 mm[Hg] MEDENT ([facility]) [place], adult cuff/LA Heart rate 65 /min 65 /min MED[facility] ([facility]) Body mass index (BMI) [Ratio] 32.0 kg/m2 32.0 k g/m2 MED[facility] ([facility]) Body height 66 [in_i] 66 [in_i] MEDENT ([facility]) 5'6" Body weight 198.00 [lb_av] 198.00 [lb_av] MEDEN T ([facility])
[2020-09-09] MEDS ORDERED: PANTOPRAZOLE 40MG VIAL (C9113 PER 1) IV ONE (11:45)
[2020-09-09] MEDS ORDERED: BACLOFEN 10 MG TAB PO PRN (11:45)
[2020-09-09 13:08] VITALS: BP 130/61; O2SAT 93
[2020-09-09] MEDS: cefTRIAXone SOD 1 GM in D5W MINI-BAG PLUS 50 ML IV SCH (13:31)
[2020-09-09] MEDS: dexameTHASONE 4 MG/ML 1ML VIAL (J1100 PER 1MG) IV SCH (13:33)
[2020-09-09] MEDS: MULTIVITAMINS/MINERALS THERAP 1 TAB PO SCH (13:34)
[2020-09-09] MEDS: CYANOCOBALAMIN 500 MCG TAB PO SCH (13:34)
[2020-09-09] MEDS: amLODIPine 5 MG TAB PO SCH (13:34)
--- NOTE | 2020-09-09 13:45 | HPEPDOC ---
[facility] Medical History & Physical Date of Admission Sep 09, 2020 Date of Service: Sep 09, 2020 History and Physical CHIEF COMPLAINT: Generalized weakness HISTORY OF PRESENT ILLNESS: 65-year-old male past medical history of hypertension,CAD s/p CABG, who comes to the hospital due to generalized weakness. Patient was diagnosed with Covid 19 infection last 7 days ago and that time he had symptoms of sore throat, dizziness, fever and chills, sweats, decreased appetite, the symptoms have progressed now he also has nausea vomiting and diarrhea and hasn't been able to eat or drink anything for 2 days. He felt very weak with function of the hospital. In the ED patient was placed on supplemental oxygen was also found to have Hemoccult blood positive. He denies noticing any blood in his urine or stools he denies throwing up or call for any blood. He had a recent colonoscopy which showed only hemorrhoids. PAST MEDICAL/SURGICAL HISTORY: Hypertension, CAD s/p CABG, SOCIAL HISTORY: Drinks alcohol socially Denies tobacco use Denies illicit drug use Lives at home with his who he stays does not have Covid at this time FAMILY HISTORY: Father had diabetes and hypertension ALLERGIES: Please see below. REVIEW OF SYSTEMS: 10 point review of systems complete all negative otherwise stated in HPI HOME MEDICATIONS: Please see below. PHYSICAL EXAMINATION: Constitutional: Awake and alert, in no apparent distress ENT: Sclera are clear. Mucosa is moist. Respiratory: Lungs diminished sounds bilaterally. No respiratory distress. No use of accessory muscles. 4L oxygen by nasal cannula Cardiovascular: RRR S1 and S2 are normal, no murmur, midsternal scar Gastrointestinal: Abdomen is soft, non distended, non tender Musculoskeletal: No lower extremity edema. RUE 5/5, LUE 5/5, BLE 5/5 Neurologic: No focal neurological deficit. Mental Status: A&O x3, normal affect Skin: Warm, dry LABORATORY DATA: See below. IMAGING: See chart MICROBIOLOGY: Please see below. ASSESSMENT/PLAN 65-year-old male past medical history of hypertension,CAD s/p CABG, who comes to the hospital due to generalized weakness as a complication of professive COVID 19 Pneumonia infection. Admitted for medical management. # Hypoxic respiratory failure 2/2 Covid 19 infection with possible superimposed bacterial pneumonia: Initial inflammatory markers elevated. Trend inflammatory markers. IV Decadron daily. Lovenox COVID prophylactic dosing due to obesity. Continue supplemental oxygen O2 target 90% or better. Within window for Rimdasivir which was started. # Possible superimposed bacterial pneumonia. Started IV ceftriaxone and doxycycline. Follow blood cultures. follow-up pro-calcitonin if negative can DC Abx. # UVALDO: Likely from dehydration. Gentle IV fluids. Monitor and avoid nephrotoxins. # Hemoccult blood positive: No signs of active bleeding. Hemoglobin 12.6 at time of admission. Continue to trend hemoglobin. We'll continue anticoagulation for now as risk of hypercoagulable state in Covid is significant. # CAD: s/p CABG and stenting. Continue dual antiplatelet therapy given signifciant cardiac history. # Hypertension: Continue home amlodipine. Monitor and titrate # DVT prophylaxis: Lovenox COVID prophylactic dose A [facility] Hospitalist Vital Signs Vital Signs Date Time Temp Pulse Resp B/P (MAP) Pulse Ox O2 Delivery O2 Flow Rate FiO2 09/09/20 09:43 99.3 09/09/20 09:30 85 18 132/62 (85) 96 Nasal Cannula 4.0 Laboratory Data Labs 24H Laboratory Tests 2 09/09/20 05:57: Immature Granulocyte % (Auto) 0.7, Neutrophils (%) (Auto) 83.9H, Lymphocytes (%) (Auto) 10.7L, Monocytes (%) (Auto) 4.6, Eosinophils (%) (Auto) 0.0, Basophils (%) (Auto) 0.1, Neutrophils # (Auto) 11.7H, Lymphocytes # (Auto) 1.5, Monocytes # (Auto) 0.6, Eosinophils # (Auto) 0.0, Basophils # (Auto) 0.0, Nucleated Red Blood Cells % (auto) 0.0, Prothrombin Time 14.9H, Prothromb Time International Ratio 1.14, Activated Partial Thromboplast Time 31.2, Fibrinogen 707H, D-Dimer, Quantitative 1209.52H, Anion Gap 11, Glomerular Filtration Rate 50.6, Calcium Level 8.5L, Ferritin 3322H, Total Bilirubin 0.3, Aspartate Amino Transf (AST/SGOT) 68H, Alanine Aminotransferase (ALT/SGPT) 92H, Alkaline Phosphatase 53 , Lactate Dehydrogenase 338H, Total Creatine Kinase 60, Creatine Kinase MB < 1.0, Creatine Kinase MB Relative Index 1.67, Troponin I 0.10, C-Reactive Protein, Quantitative 16.40H, Total Protein 6.5, Albumin 2.7L, Albumin/Globulin Ratio 0.7 09/09/20 06:00: Lactic Acid Level 2.1*H CBC/BMP Laboratory Tests 09/09/20 05:57 Home Medications Scheduled Amlodipine Besylate (Amlodipine Besylate) 5 Mg Tab, 5 MG PO DAILY Aspirin (Aspirin EC) 81 Mg Tab, 81 MG PO DAILY Atorvastatin Calcium (Atorvastatin Calcium) 40 Mg Tab, 40 MG PO QHS Cholecalciferol (Vitamin D3) (Vitamin D3) 125 Mcg Capsule, 125 MCG PO DAILY Clopidogrel Bisulfate (Clopidogrel) 75 Mg Tab, 75 MG PO DAILY Cyanocobalamin (Vitamin B-12) (Vitamin B-12) 500 Mcg Tab, 500 MCG PO DAILY Multivitamins (Thera M Plus Tablet) 1 Each Tablet, 1 TAB PO DAILY Telmisartan (Telmisartan) 80 Mg Tab, 80 MG PO DAILY Scheduled PRN Baclofen (Baclofen) 10 Mg Tablet, 10 MG PO QHS PRN for MUSCLE SPASMS Tadalafil (Cialis) 20 Mg Tablet, 20 MG PO DAILY PRN for ERECTILE DYSFUNCTION Triamcinolone Acet (Triamcinolone Acetonide 0.1% Crm) 80 Gm Cream..g., 1 DOSE TOP BID PRN for ITCHING USES ON EARS Allergies Coded Allergies: No Known Allergies (Verified , 01/16/18) A-FIB/CHADSVASC A-FIB History Current/History of A-Fib/PAF?: No TATYANA BOOTH MD Sep 09, 2020 11:20
[2020-09-09] MEDS: DOXYCYCLINE HYCLATE 100 MG in D5W MINI-BAG PLUS 100 ML IV SCH (14:31)
[2020-09-09] MEDS ORDERED: REMDESIVIR 200 MG in NS 250 ML IV ONE (15:00)
[2020-09-09] MEDS ORDERED: SODIUM CHLORIDE 0.9% INJ 10 ML SYR IV ONE (15:45)
[2020-09-09 16:00] VITALS: O2SAT 98
[2020-09-09] MEDS: TELMISARTAN 20 MG TAB PO SCH (17:45)
[2020-09-09 19:58] VITALS: BP 104/52
[2020-09-09] MEDS: ATORVASTATIN 20 MG TAB PO SCH (19:58)
[2020-09-09 20:00] VITALS: O2SAT 95
--- NOTE | 2020-09-09 20:27 | ECGEPIP ---
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
[2020-09-09] MEDS ORDERED: ENOXAPARIN 40MG/0.4ML SYRINGE (J1650 PER 10MG) SC SCH (21:00)
[2020-09-10] VITALS (33 sets, daily range): BP systolic 74–142; BP diastolic 49–70; O2SAT 82–99
[2020-09-10] MEDS: DOXYCYCLINE HYCLATE 100 MG in D5W MINI-BAG PLUS 100 ML IV SCH ×3 (00:21→23:56)
[2020-09-10 08:31] LABS: BASO % 0.1 % (0.0-1.0); HEMATOCRIT 25.9 % (42.0-52.0); HEMOGLOBIN 8.6 g/dl (13.5-17.5); LYMPH # 1.8 10^3/uL (1.5-5.0); MEAN CORPUSCULAR HEMOGLOBIN 29.7 pg (27.0-33.0); MEAN CORPUSCULAR HGB CONC 33.2 g/dl (32.0-36.5); MEAN CORPUSCULAR VOLUME 89.3 fl (80.0-96.0); MONO # 0.8 10^3/uL (0.0-0.8); MONO % 6.5 % (0.0-5.0); NEUTROPHILS # 9.8 10^3/uL (1.5-8.5); NEUTROPHILS % 78.4 % (36.0-66.0); PLATELET COUNT, AUTOMATED 252 10^3/uL (150-450); WHITE BLOOD COUNT 12.5 10^3/uL (4.0-10.0)
[2020-09-10 08:41] LABS: PARTIAL THROMBOPLASTIN TIME 31.2 SECONDS (24.2-38.5)
[2020-09-10 08:44] LABS: D-DIMER QUANT 655.01 ng/ml (<500)
[2020-09-10 08:45] LABS: INR 1.12; PROTHROMBIN TIME 14.7 SECONDS (12.5-14.3)
[2020-09-10 09:00] LABS: ALBUMIN 2.2 GM/DL (3.2-5.2); ALT/SGPT 94 U/L (12-78); BILIRUBIN,DIRECT < 0.1 MG/DL (0.0-0.2); BILIRUBIN,TOTAL 0.2 MG/DL (0.2-1.0); BLOOD UREA NITROGEN 63 MG/DL (7-18); C REACTIVE PROTEIN QUANTITATIV 9.22 MG/DL (0.00-0.30); CALCIUM LEVEL 8.2 MG/DL (8.8-10.2); CARBON DIOXIDE LEVEL 23 MEQ/L (21-32); CHLORIDE LEVEL 107 MEQ/L (98-107); FERRITIN 3050 NG/ML (26-388); GLOMERULAR FILTRATION RATE > 60.0 (>49); GLUCOSE, FASTING 159 MG/DL (70-100); MAGNESIUM LEVEL 2.8 MG/DL (1.8-2.4); POTASSIUM SERUM 4.3 MEQ/L (3.5-5.1); SODIUM LEVEL 140 MEQ/L (136-145); TOTAL PROTEIN 5.4 GM/DL (6.4-8.2)
[2020-09-10] MEDS ORDERED: PANTOPRAZOLE 40MG VIAL (C9113 PER 1) IV SCH (09:00)
[2020-09-10] MEDS: TELMISARTAN 20 MG TAB PO SCH (09:57)
[2020-09-10] MEDS: dexameTHASONE 4 MG/ML 1ML VIAL (J1100 PER 1MG) IV SCH (09:58)
[2020-09-10] MEDS: amLODIPine 5 MG TAB PO SCH (09:59)
[2020-09-10] MEDS: MULTIVITAMINS/MINERALS THERAP 1 TAB PO SCH (09:59)
[2020-09-10] MEDS: CYANOCOBALAMIN 500 MCG TAB PO SCH (09:59)
[2020-09-10] MEDS: cefTRIAXone SOD 1 GM in D5W MINI-BAG PLUS 50 ML IV SCH (10:00)
--- NOTE | 2020-09-10 11:13 | IPNPDOC ---
Text Note Date of Service The patient was seen on 09/10/20. NOTE ADDENDUM @1700: repeat H/H downtrending to 7.3, ordered 2 units of blood. [facility] staff reported large BM around that time and positive orthostatic vital signs. Blood transfusion is delayed as blood bank concerned patient may have I antibodies and need to check additional sample. Called and spoke with them @1700. At 1730, I consulted Dr. Metcalf who advised transfer to ICU in case emergent endoscopy is needed and to give at least 3 units of blood. He is considering endoscopy of patient possibly tomorrow morning. Subjective:No acute events overnight. Patient states he is more short of breath with exertion but not too bad at rest. He denies any further N/V/D. He states he began have black tarry bowel movements 2 days ago and has been sick with COVID since 09/02. He otherwise denies any chest pain, abdominal pain, nausea, vomiting, diarrhea. Objective: General: Nontoxic-appearing male laying on his right side in no acute distress. HEENT: NC, ETT. EOMI. Sclera are clear. Moist mucous membranes. Respiratory: Diminished lung sounds bilaterally. No wheezes, crackles, rhonchi. Mild use of accessory muscles of respiration. Cardiovascular: RRR, normal S1 and S2. No murmurs, gallops, rubs. Gastrointestinal: Abdomen is soft, non distended, non tender Extremities: No lower extremity edema Neurologic: No focal neurological deficits Mental Status: A&O x3, normal affect Skin: Warm, dry Assessment/Plan: #. Hypoxemic respiratory failure secondary to Covid 19 pneumonia with possible superimposed bacterial pneumonia -Starting patient on vapotherm. Encouraged proning. -IV dexamethasone (day 2) -Remdesivir (day 2) -Holding lovenox in light of GI bleed #. Upper GI bleed -Patient hemoccult positive on 09/09. -Plan to transfuse for Hgb<8, Hgb dropped from 12 to 8 overnight -If repeat hgb continues to trend down or patient continues to have overt blood loss in stool will consult GI for endoscopy. -Sucralfate and PPI BID for same. #. Possible superimposed bacterial pneumonia -Continue Rocephin and doxycycline #. CAD s/p CABG and stenting in 2013 -Discontinuing ASA, plavix in light of GI bleed, benefits outweigh risks at this point as he is 7 years out from his CABG and stenting -Spoke with Dr. Fajardo and patient has not had any NSTEMIs or large vessel strokes, only the CABGx4 7 years ago. Last stress test in 2018 with some dyspnea on exertion -2018 echo apparently showing hypertensive heart disease, 2 chamber atrial enlargement, LV diastolic dysfunction, and mild pulmonary HTN -Will likely resume aspirin on discharge #. UVALDO -Resolved #. Hypertension - Continue home amlodipine. -Holding Telmisartan in light of GI bleed DVT prophylaxis: Teds and sequentials Disposition: Pending clinical improvement, prognosis is guarded at this time. was called and updated on status of the patient. VS,Fishbone, I+O VS, Fishbone, I+O Laboratory Tests 09/10/20 07:47 Vital Signs Date Time Temp Pulse Resp B/P (MAP) Pulse Ox O2 Delivery O2 Flow Rate FiO2 09/10/20 11:04 95.7 86 18 94/49 (64) 98 HVNI-Vapotherm 15.0 70 I&O- Last 24 Hours up to 6 AM 09/10/20 06:00 Intake Total 1740 ml Output Total 350 ml Balance 1390 ml GME ATTESTATION GME ATTESTATION My faculty preceptor for this patient encounter was physically present during the encounter and was fully available. All aspects of the patient interview, examination, medical decision making process, and medical care plan development were reviewed and approved by the faculty preceptor. The faculty preceptor is aware and concurs with the plan as stated in the body of this note and will attest to such by his/her cosignature. CLIFF CARLOS DO Sep 10, 2020 11:13
[2020-09-10] MEDS: SUCRALFATE 1 GM TAB PO SCH ×2 (12:30→16:46)
[2020-09-10] MEDS: REMDESIVIR 100 MG in NS 250 ML IV SCH (14:00)
[2020-09-10] MEDS: SODIUM CHLORIDE 0.9% INJ 10 ML SYR IV SCH (14:51)
[2020-09-10 15:04] LABS: HEMOGLOBIN 7.3 g/dl (13.5-17.5); MEAN CORPUSCULAR HEMOGLOBIN 29.4 pg (27.0-33.0); MEAN CORPUSCULAR HGB CONC 33.2 g/dl (32.0-36.5); MEAN CORPUSCULAR VOLUME 88.7 fl (80.0-96.0); PLATELET COUNT, AUTOMATED 241 10^3/uL (150-450); RED BLOOD COUNT 2.48 10^6/uL (4.30-6.10); WHITE BLOOD COUNT 12.5 10^3/uL (4.0-10.0)
[2020-09-10] MEDS: PANTOPRAZOLE 40MG VIAL (C9113 PER 1) IV SCH (21:10)
[2020-09-10] MEDS: ATORVASTATIN 20 MG TAB PO SCH (21:10)
[2020-09-10] MEDS ORDERED: NS 1,000 ML IV SCH (23:59)
[2020-09-11] VITALS (23 sets, daily range): BP systolic 114–156; BP diastolic 58–73; O2SAT 94–98
[2020-09-11 02:12] LABS: HEMATOCRIT 31.2 % (42.0-52.0); MEAN CORPUSCULAR HEMOGLOBIN 29.3 pg (27.0-33.0); MEAN CORPUSCULAR HGB CONC 33.3 g/dl (32.0-36.5); MEAN CORPUSCULAR VOLUME 87.9 fl (80.0-96.0); PLATELET COUNT, AUTOMATED 232 10^3/uL (150-450); RED BLOOD COUNT 3.55 10^6/uL (4.30-6.10); WHITE BLOOD COUNT 14.5 10^3/uL (4.0-10.0)
[2020-09-11 02:19] LABS: HEMOGLOBIN 10.4 g/dl (13.5-17.5)
[2020-09-11 06:04] LABS: BASO % 0.2 % (0.0-1.0); HEMATOCRIT 31.5 % (42.0-52.0); HEMOGLOBIN 10.4 g/dl (13.5-17.5); LYMPH # 2.5 10^3/uL (1.5-5.0); MEAN CORPUSCULAR HEMOGLOBIN 29.3 pg (27.0-33.0); MEAN CORPUSCULAR VOLUME 88.7 fl (80.0-96.0); MONO # 0.9 10^3/uL (0.0-0.8); MONO % 5.7 % (0.0-5.0); NEUTROPHILS # 12.8 10^3/uL (1.5-8.5); NEUTROPHILS % 77.3 % (36.0-66.0); PLATELET COUNT, AUTOMATED 281 10^3/uL (150-450); RED BLOOD COUNT 3.55 10^6/uL (4.30-6.10); WHITE BLOOD COUNT 16.6 10^3/uL (4.0-10.0)
[2020-09-11 06:21] LABS: INR 1.26; PROTHROMBIN TIME 16.1 SECONDS (12.5-14.3)
[2020-09-11 06:22] LABS: PARTIAL THROMBOPLASTIN TIME 27.9 SECONDS (24.2-38.5)
[2020-09-11 06:59] LABS: ALBUMIN 2.3 GM/DL (3.2-5.2); ALT/SGPT 80 U/L (12-78); BILIRUBIN,DIRECT 0.1 MG/DL (0.0-0.2); BILIRUBIN,TOTAL 0.3 MG/DL (0.2-1.0); BLOOD UREA NITROGEN 56 MG/DL (7-18); CALCIUM LEVEL 8.2 MG/DL (8.8-10.2); CARBON DIOXIDE LEVEL 25 MEQ/L (21-32); CHLORIDE LEVEL 107 MEQ/L (98-107); CPK CREATINE PHOSPHOKINASE 35 U/L (39-308); CREATININE FOR GFR 1.09 MG/DL (0.70-1.30); FERRITIN 2150 NG/ML (26-388); GLOMERULAR FILTRATION RATE > 60.0 (>49); GLUCOSE, FASTING 159 MG/DL (70-100); LDH LACTATE DEHYDROGENASE 271 U/L (87-241); MAGNESIUM LEVEL 2.3 MG/DL (1.8-2.4); NT-PRO BNP 50 PG/ML (<125); POTASSIUM SERUM 3.9 MEQ/L (3.5-5.1); SODIUM LEVEL 140 MEQ/L (136-145); TOTAL PROTEIN 6.1 GM/DL (6.4-8.2); TROPONIN I 0.02 NG/ML (< 0.10)
[2020-09-11] MEDS: SUCRALFATE 1 GM TAB PO SCH ×3 (07:30→18:26)
[2020-09-11] MEDS ORDERED: propofoL 200 MG/20 ML VIAL As Ordered ONE (08:08)
[2020-09-11] MEDS ORDERED: LIDOCAINE 2% 100MG/5ML SDV (FOR ANES.) As Ordered ONE (08:08)
[2020-09-11] MEDS ORDERED: fentaNYL 100 MCG/2 ML INJECTION (J3010) As Ordered ONE (08:09)
[2020-09-11] MEDS: PANTOPRAZOLE 40MG VIAL (C9113 PER 1) IV SCH ×2 (08:43→20:09)
[2020-09-11] MEDS: dexameTHASONE 4 MG/ML 1ML VIAL (J1100 PER 1MG) IV SCH (08:43)
[2020-09-11] MEDS ORDERED: FLUBLOK(EGG FREE)(QUAD)INFLUENZA VACC 0.5ML SYRINGE 18YRS & OLDER IM ONE (09:00)
--- NOTE | 2020-09-11 09:18 | IPNPDOC ---
Text Note Date of Service The patient was seen on 09/11/20. NOTE Subjective: seen at bedside in the ICU. He is now off Vapotherm and states he feels better than he did yesterday. He states there is a plan to have an endoscopy this morning with Dr. Metcalf. He denies any further black tarry bowel movements and denies any chest pain, shortness breath, abdominal pain, nausea, vomiting, diarrhea. Objective: General: Well appearing male laying on his right side in no acute distress. HEENT: NC, AT. EOMI. Sclera are clear. Moist mucous membranes. Respiratory: Diminished lung sounds bilaterally. No wheezes, crackles, rhonchi. No use of accessory muscles of respiration. Cardiovascular: RRR, normal S1 and S2. No murmurs, gallops, rubs. Gastrointestinal: Abdomen is soft, non distended, non tender Extremities: No lower extremity edema Neurologic: No focal neurological deficits Mental Status: A&O x3, normal affect Skin: Warm, dry Assessment/Plan: Patient is a 65 year old male diagnosed with COVID on 09/02 who presented with worsening upper respiratory symptoms, hypoxia, and positive hemocult admitted for hypoxemic respiratory failure. He had increased oxygen demand following his first night on vapotherm and his hgb dropped 4 units. This was trended and dropped to 7.3 so he was transfused 3 units, transferred to ICU, and GI was consulted with plans for endoscopy the morning of 09/11/20. #. Upper GI bleed -Patient hemoccult positive on 09/09. Hgb 12 to 8 to 7.3 by afternoon on 09/10, GI consulted -S/p 3 units PRBC, hgb 10.4, GI to scope patient today, 09/11 -Sucralfate and PPI BID #. Hypoxemic respiratory failure secondary to Covid 19 pneumonia with possible superimposed bacterial pneumonia -Patient weaned off vapotherm, improving, now on 4L nasal cannula, encouraged proning, incentive spirometry. Suspect some of his hypoxemia was due to his anemia. -IV dexamethasone (day 3), Remdesivir (day 3) -Holding lovenox in light of GI bleed #. Possible superimposed bacterial pneumonia -Continue Rocephin and doxycycline -Repeat pro-bjorn pending #. CAD s/p CABG and stenting in 2013 -Discontinuing ASA, plavix in light of GI bleed, benefits outweigh risks at this point as he is 7 years out from his CABG and stenting -Spoke with Dr. Fajardo and patient has not had any NSTEMIs or large vessel strokes, only the CABGx4 7 years ago. Last stress test in 2018 with some dyspnea on exertion -2018 echo apparently showing hypertensive heart disease, 2 chamber atrial enlargement, LV diastolic dysfunction, and mild pulmonary HTN -Will likely resume aspirin on discharge, continue Atorvastatin #. Hypertension - Hold amlodipine in light of positive orthostatics yesterday. -Holding Telmisartan in light of GI bleed/orthostatics DVT prophylaxis: Teds and sequentials Disposition: Pending clinical improvement, prognosis is guarded at this time. was called and updated on status of the patient. VS,Fishbone, I+O VS, Fishbone, I+O Laboratory Tests 09/10/20 14:52 09/11/20 02:04 09/11/20 05:53 Vital Signs Date Time Temp Pulse Resp B/P (MAP) Pulse Ox O2 Delivery O2 Flow Rate FiO2 09/11/20 08:00 98.2 112 18 143/70 (94) 94 Nasal Cannula 4.0 09/10/20 18:40 50 I&O- Last 24 Hours up to 6 AM 09/11/20 06:00 Intake Total 3640 ml Output Total 1595 ml Balance 2045 ml GME ATTESTATION GME ATTESTATION My faculty preceptor for this patient encounter was physically present during the encounter and was fully available. All aspects of the patient interview, examination, medical decision making process, and medical care plan development were reviewed and approved by the faculty preceptor. The faculty preceptor is aware and concurs with the plan as stated in the body of this note and will attest to such by his/her cosignature. ATTENDING NOTE I, Isabell Servin, have independently examined this patient and performed my own physical exam, as well as reviewed the documentation and edited where necessary. I have discussed in detail with the resident / student the findings and plan of treatment as documented by the resident / student and edited their note. I agree with their findings and treatment plan and have edited their documentation. I will continue to follow the patient during this hospital stay. CLIFF CARLOS DO Sep 11, 2020 09:18 ISABELL SERVIN MD Sep 11, 2020 13:58
--- NOTE | 2020-09-11 09:36 | ROOR ---
Patient Name: Joey Hgigins Procedure Date: 09/11/2020 8:15 AM Date of : 1955 Age: 65 Room: Main OR Gender: Male Note Status: Finalized Procedure: Upper GI endoscopy Indications: Acute post hemorrhagic anemia, Melena Providers: Kiek METCALF MD Referring MD: 2. Inpatient 2. Inpatient Requesting Provider: Medicines: Monitored Anesthesia Care Complications: No immediate complications. Procedure: Pre-Anesthesia Assessment: - The heart rate, respiratory rate, oxygen saturations, blood pressure, adequacy of pulmonary ventilation, and response to care were monitored throughout the procedure. The Endoscope was introduced through the mouth, and advanced to the second part of duodenum. Findings: One non-bleeding superficial duodenal ulcer with a visible vessel was found in the second portion of the duodenum. The lesion was 8 mm in largest dimension. For hemostasis, three hemostatic clips were successfully placed. There was no bleeding at the end of the procedure. An acquired benign-appearing, intrinsic mild stenosis was found in the second portion of the duodenum and was traversed. Minimal inflammation characterized by erythema was found in the gastric antrum. This was biopsied with a cold forceps for histology. The examined esophagus was normal. No active bleeding is seen. I see no fresh or old blood on this exam. The duodenal erosion is small snd relatively shallow, however does have a central visible vessel, making this the likely source for his bleeding. The ulceration/visible vessel is considered high risk for re-bleeding. Hemostasis/clips applied. 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 Clips x 3 were placed. - Mild gastritis. Biopsied r/o H pylori. - Normal esophagus. Recommendation: - Return patient to [facility] for ongoing care. - Clear liquid diet today. - Observe patient's clinical course. - No ibuprofen, naproxen, or other non-steroidal anti-inflammatory drugs. Procedure Code(s): --- Professional --- 50298, 59, Esophagogastroduodenoscopy, flexible, transoral; with control of bleeding, any method 85580, Esophagogastroduodenoscopy, flexible, transoral; with biopsy, single or multiple Diagnosis Code(s): --- Professional --- K92.1, Melena (includes Hematochezia) D62, Acute posthemorrhagic anemia K29.70, Gastritis, unspecified, without bleeding K31.5, Obstruction of duodenum K26.4, Chronic or unspecified duodenal ulcer with hemorrhage CPT copyright 2019 [employer]. All rights reserved. The codes documented in this report are preliminary and upon medicaid biller review may be revised to meet current compliance requirements. Kike Metcalf MD Kike METCALF MD 09/11/2020 9:36:25 AM Electronically signed by Kike METCALF MD Number of Addenda: 0 Note Initiated On: 09/11/2020 8:15 AM Estimated Blood Loss: Estimated blood loss: none.
[2020-09-11] MEDS: MULTIVITAMINS/MINERALS THERAP 1 TAB PO SCH (09:56)
[2020-09-11] MEDS: CYANOCOBALAMIN 500 MCG TAB PO SCH (09:56)
[2020-09-11] MEDS: cefTRIAXone SOD 1 GM in D5W MINI-BAG PLUS 50 ML IV SCH (10:59)
[2020-09-11] MEDS: DOXYCYCLINE HYCLATE 100 MG in D5W MINI-BAG PLUS 100 ML IV SCH ×2 (10:59→23:41)
[2020-09-11] MEDS ORDERED: FLUBLOK(EGG FREE)(QUAD)INFLUENZA VACC 0.5ML SYRINGE 18YRS & OLDER IM PRN (11:30)
[2020-09-11] MEDS: SODIUM CHLORIDE 0.9% INJ 10 ML SYR IV SCH ×2 (14:18→18:26)
[2020-09-11] MEDS: REMDESIVIR 100 MG in NS 250 ML IV SCH (18:25)
[2020-09-11] MEDS: ATORVASTATIN 20 MG TAB PO SCH (20:10)
[2020-09-12] VITALS: BP 143/72; O2SAT 92
[2020-09-12 04:00] VITALS: BP 152/78; O2SAT 93
[2020-09-12 08:03] LABS: BASO % 0.1 % (0.0-1.0); HEMATOCRIT 26.6 % (42.0-52.0); HEMOGLOBIN 9.1 g/dl (13.5-17.5); LYMPH # 2.4 10^3/uL (1.5-5.0); LYMPH % 15.3 % (24.0-44.0); MEAN CORPUSCULAR HEMOGLOBIN 29.7 pg (27.0-33.0); MEAN CORPUSCULAR HGB CONC 34.2 g/dl (32.0-36.5); MEAN CORPUSCULAR VOLUME 86.9 fl (80.0-96.0); MONO # 1.2 10^3/uL (0.0-0.8); MONO % 7.4 % (0.0-5.0); NEUTROPHILS # 11.8 10^3/uL (1.5-8.5); NEUTROPHILS % 75.5 % (36.0-66.0); PLATELET COUNT, AUTOMATED 314 10^3/uL (150-450); RED BLOOD COUNT 3.06 10^6/uL (4.30-6.10); WHITE BLOOD COUNT 15.6 10^3/uL (4.0-10.0)
[2020-09-12 08:18] VITALS: BP 135/63
[2020-09-12 08:21] LABS: BLOOD UREA NITROGEN 22 MG/DL (7-18); CARBON DIOXIDE LEVEL 24 MEQ/L (21-32); CHLORIDE LEVEL 108 MEQ/L (98-107); CREATININE FOR GFR 0.75 MG/DL (0.70-1.30); GLOMERULAR FILTRATION RATE > 60.0 (>49); GLUCOSE, FASTING 109 MG/DL (70-100); MAGNESIUM LEVEL 2.3 MG/DL (1.8-2.4); POTASSIUM SERUM 4.6 MEQ/L (3.5-5.1); SODIUM LEVEL 142 MEQ/L (136-145)
[2020-09-12] MEDS: dexameTHASONE 4 MG/ML 1ML VIAL (J1100 PER 1MG) IV SCH (09:05)
[2020-09-12] MEDS: SUCRALFATE 1 GM TAB PO SCH ×2 (09:05→12:04)
[2020-09-12] MEDS: PANTOPRAZOLE 40MG VIAL (C9113 PER 1) IV SCH (09:05)
[2020-09-12] MEDS: MULTIVITAMINS/MINERALS THERAP 1 TAB PO SCH (09:05)
[2020-09-12] MEDS: CYANOCOBALAMIN 500 MCG TAB PO SCH (09:05)
[2020-09-12] MEDS ORDERED: CEFD1CAP8 PO (11:36)
[2020-09-12] MEDS ORDERED: PROT1TAB2 PO (11:36)
[2020-09-12] MEDS ORDERED: DOXY-350 PO (11:36)
[2020-09-12] MEDS ORDERED: DEXA6TAB PO (11:36)
[2020-09-12] MEDS ORDERED: ASPI81TA26 PO (11:42)
[2020-09-12 11:50] LABS: C REACTIVE PROTEIN QUANTITATIV 1.54 MG/DL (0.00-0.30); FERRITIN 1576 NG/ML (26-388); LDH LACTATE DEHYDROGENASE 299 U/L (87-241)
[2020-09-12] MEDS: cefTRIAXone SOD 1 GM in D5W MINI-BAG PLUS 50 ML IV SCH (12:03)
[2020-09-12] MEDS: DOXYCYCLINE HYCLATE 100 MG in D5W MINI-BAG PLUS 100 ML IV SCH (12:04)
[2020-09-12 12:10] VITALS: BP 157/72
--- NOTE | 2020-09-12 13:33 | DS.PDOC ---
Discharge Summary General Date of Admission Sep 09, 2020 at 11:23 Date of Discharge 09/12/2020 Discharge Summary PROCEDURES PERFORMED DURING STAY: EGD on 09/11: mild duodenal stricture with 8mm shallow erosion / ulceration s/p clip x3, mild gastritis, normal esophagus ADMITTING DIAGNOSES / DISCHARGE DIAGNOSES: Acute blood loss anemia - likely 2/2 upper GI bleed Acute hypoxic respiratory failure - likely 2/2 COVID19 pneumonia, possibly 2/2 superimposed bacterial pneumonia CAD s/p CABG and Stent (2013) HTN DVT prophylaxis COMPLICATIONS/CHIEF COMPLAINT: Weakness HISTORY OF PRESENT ILLNESS: Patient is a 65-year-old male with a PMHx of CAD s/p CABG, HTN, who presented to the hospital with generalized weakness. Patient was diagnosed with COVID19 on 09/02/20. Patient was admitted to the hospital service for further evaluation and treatment. Patient's hospital course was complicated with acute blood loss anemia secondary to upper GI bleed. Patient has received an endoscopy with Dr. Metcalf 09/11. HOSPITAL COURSE: Acute blood loss anemia - likely 2/2 upper GI bleed - No further dark stools noted - Denies any CP or palpitations - Hg stable - s/p 3 units PRBC - s/p EGD on 09/11: mild duodenal stricture with 8mm shallow erosion / ulceration s/p clip x3, mild gastritis, normal esophagus - c/w Protonix on discharge - Will have outpatient follow up with PCP and gastroenterology within 7 days Acute hypoxic respiratory failure - likely 2/2 COVID19 pneumonia, possibly 2/2 superimposed bacterial pneumonia - Reports his breathing is doing fine currently - On supplemental oxygen at 2L; required with ambulation - Will c/w Dexamethasone (Day #4); will provide on discharge - Will DC Remdesivir (Day #4) - Will antibiotics; Will change to Cefdinir / Doxycycline PO for completion of course; will DC Ceftriaxone / Doxy IV - c/w Incentive spirometry / acapella CAD s/p CABG and Stent (2013) - Denies any chest pain or palpitations - Troponin negative - c/w Atorvastatin - s/p Plavix - ASA on hold; discussed with GI - will resume within 7 days of discharge HTN - BP well controlled - c/w Telmisartan on discharge DVT prophylaxis - c/w TEDs/Sequentials DISCHARGE MEDICATIONS: Please see below. ALLERGIES: Please see below. PHYSICAL EXAMINATION ON DISCHARGE: Vitals (See below) General: Lying in bed, appears comfortable, AAOx3 HEENT: NC, AT CVS: RRR, +S1S2 Lungs: Fair air entry b/l, no appreciable wheezing, rhonchi or rales Abdomen: Soft, nondistended and nontender Extremities: LE are without any edema, - Calf tenderness LABORATORY DATA: Please see below. ACTIVITY: [As tolerated]. DISCHARGE PLAN: Follow-up with primary care provider, and gastroenterology within the next 7 days Remain compliant with treatment plan and medications Return to the ER if you experience any problems DISPOSITION: Home with services DISCHARGE CONDITION: [Stable]. TIME SPENT ON DISCHARGE: 35 minutes. Vital Signs/I&Os Vital Signs Date Time Temp Pulse Resp B/P (MAP) Pulse Ox O2 Delivery O2 Flow Rate FiO2 09/12/20 12:10 97.8 65 18 157/72 (100) 96 Nasal Cannula 2.0 09/10/20 18:40 50 I&O- Last 24 Hours up to 6 AM 09/12/20 06:00 Intake Total 2340 ml Output Total 1910 ml Balance 430 ml Laboratory Data Labs 24H Laboratory Tests 2 09/12/20 07:37: Immature Granulocyte % (Auto) 1.7, Neutrophils (%) (Auto) 75.5H, Lymphocytes (%) (Auto) 15.3L, Monocytes (%) (Auto) 7.4H, Eosinophils (%) (Auto) 0.0, Basophils (%) (Auto) 0.1, Neutrophils # (Auto) 11.8H, Lymphocytes # (Auto) 2.4, Monocytes # (Auto) 1.2H, Eosinophils # (Auto) 0.0, Basophils # (Auto) 0.0, Nucleated Red Blood Cells % (auto) 0.1H, Anion Gap 10, Glomerular Filtration Rate > 60.0, Calcium Level 8.0L, Magnesium Level 2.3, Ferritin 1576H, Lactate Dehydrogenase 299H, C-Reactive Protein, Quantitative 1.54H CBC/BMP Laboratory Tests 09/12/20 07:37 Microbiology Microbiology 09/10/20 Stool Occult Blood (LEANN) - Final, Complete 09/09/20 Blood Culture - Preliminary, Resulted No Growth after 72 hours. All specime... 09/09/20 Blood Culture - Preliminary, Resulted No Growth after 72 hours. All specime... Discharge Medications Scheduled Amlodipine Besylate (Amlodipine Besylate) 5 Mg Tab, 5 MG PO DAILY, (Reported) Aspirin (Aspirin EC) 81 Mg Tab, 81 MG PO DAILY To be resumed after 7 days from hospital discharge Atorvastatin Calcium (Atorvastatin Calcium) 40 Mg Tab, 40 MG PO QHS, (Reported) Cefdinir (Cefdinir) 300 Mg Capsule, 1 CAP PO BID Cholecalciferol (Vitamin D3) (Vitamin D3) 125 Mcg Capsule, 125 MCG PO DAILY, (Reported) Cyanocobalamin (Vitamin B-12) (Vitamin B-12) 500 Mcg Tab, 500 MCG PO DAILY, (Reported) Dexamethasone (Dexamethasone) 6 Mg Tablet, 1 TAB PO DAILY Doxycycline Monohydrate (Doxycycline) 100 Mg Capsule, 1 CAP PO BID Multivitamins (Thera M Plus Tablet) 1 Each Tablet, 1 TAB PO DAILY, (Reported) Pantoprazole Sodium (Protonix) 40 Mg Tablet.dr, 1 TAB PO BID Telmisartan (Telmisartan) 80 Mg Tab, 80 MG PO DAILY, (Reported) Scheduled PRN Baclofen (Baclofen) 10 Mg Tablet, 10 MG PO QHS PRN for MUSCLE SPASMS, (Reported) Tadalafil (Cialis) 20 Mg Tablet, 20 MG PO DAILY PRN for ERECTILE DYSFUNCTION, (Reported) Triamcinolone Acet (Triamcinolone Acetonide 0.1% Crm) 80 Gm Cream..g., 1 DOSE TOP BID PRN for ITCHING, (Reported) USES ON EARS Allergies Coded Allergies: No Known Allergies (Verified , 01/16/18) PRISCILLA PEREYRA MD Sep 12, 2020 13:33
[2020-09-14 18:07] LABS: MYCOPLASMA PNEUMONIAE IgG 612 U/mL (0-99); MYCOPLASMA PNEUMONIAE IgM <770 U/mL (0-769)
== END 2020-09-12 17:03 | disposition home health service (06) | DRG 177 ==
LOC: M ED 05:43 → M ED INP 11:23 → M 4MAIN 13:13 → M ICU 09-10 19:08 → M 4MAIN 09-11 13:37
PROVIDERS: ADMIT Family Medicine; ATTEND Internal Medicine
PROC: XW033E5 Introduction of Remdesivir Anti-infective into Peripheral Vein, Percutaneous Approach, New Technology Group 5 (ICD-10-PCS; 2020-09-09)
PROC: 3E0333Z Introduction of Anti-inflammatory into Peripheral Vein, Percutaneous Approach (ICD-10-PCS; 2020-09-09)
PROC: 30233N1 Transfusion of Nonautologous Red Blood Cells into Peripheral Vein, Percutaneous Approach (ICD-10-PCS; 2020-09-10)
PROC: 0DB78ZX Excision of Stomach, Pylorus, Via Natural or Artificial Opening Endoscopic, Diagnostic (ICD-10-PCS; 2020-09-11)
PROC: 0W3P8ZZ Control Bleeding in Gastrointestinal Tract, Via Natural or Artificial Opening Endoscopic (ICD-10-PCS; principal; 2020-09-11 08:30)
DX: U07.1 COVID-19 (principal); J15.9 Unspecified bacterial pneumonia; J96.01 Acute respiratory failure with hypoxia; K26.4 Chronic or unspecified duodenal ulcer with hemorrhage; J12.82 Pneumonia due to coronavirus disease 2019; N17.9 Acute kidney failure, unspecified; K31.5 Obstruction of duodenum; I25.10 Atherosclerotic heart disease of native coronary artery without angina pectoris; I10 Essential (primary) hypertension; K29.70 Gastritis, unspecified, without bleeding; E86.0 Dehydration; Z79.82 Long term (current) use of aspirin; Z79.899 Other long term (current) drug therapy; Z95.1 Presence of aortocoronary bypass graft

== ENCOUNTER → 2020-11-07 | Outpatient (CLI) | payer OTHER ==
[~2020-11-07] MED LIST changes: +BACL10TA2 PO; +CEFD1CAP8 PO; +CIAL20TA PO; +COLC0.6T47; +D-50CAP PO; +DEXA6TAB PO; +DOXY-350 PO; +OMEP-221; +PRED10TA2 PO; +PROT1TAB2 PO; +TRIA1CR80 TOP; +VITMTA PO
== END ==
LOC: M LABSMTC 09:44
PROVIDERS: ATTEND Anesthesiology
DX: Z01.812 Encounter for preprocedural laboratory examination (principal); Z20.822 Contact with and (suspected) exposure to COVID-19

== ENCOUNTER 2020-11-12 14:08 | Day surgery (SDC) | payer OTHER ==
[~2020-11-12] VITALS: Ht 167.6 cm; Wt 93.9 kg
[~2020-11-12 14:08] MED LIST changes: +LIDOCAINE 2% 100MG/5ML SDV (FOR ANES.) As Ordered ONE; +NS 1,000 ML IV ONE; +propofoL 200 MG/20 ML VIAL As Ordered ONE
[2020-11-12] MEDS ORDERED: propofoL 200 MG/20 ML VIAL As Ordered ONE (16:31)
--- NOTE | 2020-11-12 16:39 | ROOR ---
Patient Name: Joey Higgins Procedure Date: 11/12/2020 4:15 PM Date of : 1955 Age: 65 Room: [facility] Gender: Male Note Status: Finalized Procedure: Upper GI endoscopy Indications: Surveillance procedure, Follow-up of duodenal stenosis, Follow-up of acute duodenal ulcer with hemorrhage Providers: Kike METCALF MD Referring MD: TATI PULIDO Requesting Provider: Medicines: Monitored Anesthesia Care Complications: No immediate complications. Procedure: Pre-Anesthesia Assessment: - The heart rate, respiratory rate, oxygen saturations, blood pressure, adequacy of pulmonary ventilation, and response to care were monitored throughout the procedure. The Endoscope was introduced through the mouth, and advanced to the third part of duodenum. The upper GI endoscopy was accomplished without difficulty. The patient tolerated the procedure well. Findings: The examined esophagus was normal. The entire examined stomach was normal. A moderate post-ulcer deformity was found in the second portion of the duodenum. This was biopsied with a cold forceps for histology. The exam was otherwise without abnormality. Impression: - Duodenal deformity-mild focal scarring/narrowing at the site of previous duodenal ulcer in second portion of duodenum. Biopsied. - The duodenal ulcer is completely healed. 2 endoclips are still present. the deformity is passable with scope - The examination was otherwise normal. Recommendation: - Continue present medications. - The clips usually detach after a month or so. Some clips stay longer. These are harmless and do not need removal. - Await pathology results. - Telephone my office for pathology results in 2 weeks. - Observe patient's clinical course. - I anticipate no further need for intervention. Procedure Code(s): --- Professional --- 34371, Esophagogastroduodenoscopy, flexible, transoral; with biopsy, single or multiple Diagnosis Code(s): --- Professional --- K26.0, Acute duodenal ulcer with hemorrhage K31.5, Obstruction of duodenum K31.89, Other diseases of stomach and duodenum CPT copyright 2019 [employer]. All rights reserved. The codes documented in this report are preliminary and upon sail maker review may be revised to meet current compliance requirements. Kike Metcalf MD Kike METCALF MD 11/12/2020 4:38:41 PM Electronically signed by Kike METCALF MD Number of Addenda: 0 Note Initiated On: 11/12/2020 4:15 PM Estimated Blood Loss: Estimated blood loss: none.
[2020-11-12 16:51] VITALS: BP 132/69
== END 2020-11-12 16:54 | disposition home or self-care (01) ==
LOC: M OPP 14:08
PROVIDERS: ATTEND Internal Medicine Gastroenterology
DX: K31.89 Other diseases of stomach and duodenum (principal); K31.5 Obstruction of duodenum; K26.0 Acute duodenal ulcer with hemorrhage; G47.30 Sleep apnea, unspecified; Z79.82 Long term (current) use of aspirin; Z79.899 Other long term (current) drug therapy; Z95.0 Presence of cardiac pacemaker; Z87.891 Personal history of nicotine dependence

== ENCOUNTER 2021-03-29 03:34 | Emergency (ER) | payer OTHER ==
[~2021-03-29] VITALS: Ht 167.6 cm; Wt 91.8 kg
[~2021-03-29 03:34] MED LIST changes: -LIDOCAINE 2% 100MG/5ML SDV (FOR ANES.) As Ordered ONE; -NS 1,000 ML IV ONE; -propofoL 200 MG/20 ML VIAL As Ordered ONE
[2021-03-29 06:32] LABS: BASO % 0.2 % (0.0-1.0); EOS % 0.1 % (0.0-3.0); HEMATOCRIT 44.8 % (42.0-52.0); HEMOGLOBIN 14.7 g/dl (13.5-17.5); LYMPH # 1.6 10^3/uL (1.5-5.0); LYMPH % 8.7 % (24.0-44.0); MEAN CORPUSCULAR HEMOGLOBIN 29.9 pg (27.0-33.0); MEAN CORPUSCULAR HGB CONC 32.8 g/dl (32.0-36.5); MEAN CORPUSCULAR VOLUME 91.2 fl (80.0-96.0); MONO # 0.7 10^3/uL (0.0-0.8); MONO % 4.1 % (2.0-8.0); NEUTROPHILS # 15.5 10^3/uL (1.5-8.5); NEUTROPHILS % 86.6 % (36.0-66.0); PLATELET COUNT, AUTOMATED 260 10^3/uL (150-450); RED BLOOD COUNT 4.91 10^6/uL (4.30-6.10); WHITE BLOOD COUNT 17.9 10^3/uL (4.0-10.0)
[2021-03-29] MEDS ORDERED: PANTOPRAZOLE 40MG VIAL (C9113 PER 1) IV ONE (06:55)
[2021-03-29] MEDS ORDERED: NS 1,000 ML IV ONE (06:55)
[2021-03-29] MEDS ORDERED: ONDANSETRON 4MG/2ML VIAL IV ONE (06:55)
[2021-03-29 07:38] LABS: CPK CREATINE PHOSPHOKINASE 221 U/L (39-308); MB/CK RELATIVE INDEX 1.36 (< OR =4); TROPONIN I < 0.02 NG/ML (< 0.10)
--- NOTE | 2021-03-29 07:51 | ECGEPIP ---
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
--- NOTE | 2021-03-29 08:17 | REP ---
INDICATION: pud r/o free air COMPARISON: None. TECHNIQUE: Upright view of the chest with supine and upright views of the abdomen and pelvis. FINDINGS: Frontal upright view of the chest demonstrates no acute cardiopulmonary process or free air below the diaphragm to suspect pneumoperitoneum. Sternotomy wires noted. Supine and upright views of the abdomen and pelvis demonstrate nonspecific bowel gas pattern without obstruction or perforation. No organomegaly. No abnormal calcifications. Skeletal structures normal for age. IMPRESSION: Nonspecific bowel gas pattern. No obvious free air to suggest perforation. <Electronically signed by Johnathan Bush > 03/29/21 [id number]
--- NOTE | 2021-03-29 08:29 | REP ---
INDICATION: ruq pain, COMPARISON: None. TECHNIQUE: Real time bland scale ultrasound examination using curved array transducer. FINDINGS: Liver is hyperechoic suggesting fatty infiltration without focal hepatic lesion. The pancreas is incompletely evaluated due to interposed bowel gas. The gallbladder includes 2.8 mm benign appearing polyp. No gallstones, wall thickening, or pericholecystic fluid noted. No biliary ductal dilatation is appreciated and the common bile duct measures 5.4 mm diameter. Right kidney is normal in reniform shape without hydronephrosis and measures 11.9 x 5.4 x 5.7 cm. No ascites in the visualized right upper quadrant. IMPRESSION: 1. Hepatosteatosis. 2. 2.8 mm benign gallbladder polyp. <Electronically signed by Johnathan Bush > 03/29/21 [id number]
[2021-03-29 08:34] LABS: ALBUMIN 4.3 GM/DL (3.2-5.2); ALT/SGPT 42 U/L (12-78); BILIRUBIN,DIRECT 0.1 MG/DL (0.0-0.2); BILIRUBIN,TOTAL 0.4 MG/DL (0.2-1.0); BLOOD UREA NITROGEN 20 MG/DL (7-18); CARBON DIOXIDE LEVEL 28 MEQ/L (21-32); CHLORIDE LEVEL 106 MEQ/L (98-107); CREATININE FOR GFR 0.92 MG/DL (0.70-1.30); GLOMERULAR FILTRATION RATE > 60.0 (>49); GLUCOSE, FASTING 114 MG/DL (70-100); LIPASE 137 U/L (73-393); SODIUM LEVEL 140 MEQ/L (136-145); TOTAL PROTEIN 7.4 GM/DL (6.4-8.2)
[2021-03-29] MEDS ORDERED: ISOVUE-370 76% 100ML VIAL As Ordered ONE (10:32)
--- NOTE | 2021-03-29 11:00 | REP ---
INDICATION: upper abd pain, leukocytosis COMPARISON: None. TECHNIQUE: CT Scan of the abdomen and pelvis was performed with intravenous administration of 100 cc of Isovue 370, without oral contrast. Sagittal and coronal reconstruction images are performed. FINDINGS: Lung bases: Unremarkable. Liver: Normal Gallbladder: Unremarkable. Spleen: Normal. Adrenals: Normal. Pancreas: Normal. Kidneys: There is a 5.2 cm cyst in the mid left kidney. There is an adjacent intrarenal calculus measuring 9 mm in diameter. There is no hydronephrosis bilaterally. Small and large bowel: Unremarkable. Free fluid: None. Abdominal aorta: No aneurysm or dissection. Adenopathy: None. Appendix: Not inflamed. Osseous structures: There are degenerative changes of the spine without compression deformity. Pelvis: No mass. IMPRESSION: No acute abnormalities detected. <Electronically signed by Jesus Campo > 03/29/21 [id number]
[2021-03-29 11:22] VITALS: BP 172/88
[2021-03-29] MEDS ORDERED: CARA1TAB6 PO (11:25)
[2021-03-29] MEDS ORDERED: PROT1TAB2 PO (11:25)
== END 2021-03-29 11:38 | disposition home or self-care (01) ==
LOC: M ED 03:34
DX: K27.9 Peptic ulcer, site unspecified, unspecified as acute or chronic, without hemorrhage or perforation (principal); K76.0 Fatty (change of) liver, not elsewhere classified; K82.4 Cholesterolosis of gallbladder; N28.1 Cyst of kidney, acquired; I25.10 Atherosclerotic heart disease of native coronary artery without angina pectoris; I10 Essential (primary) hypertension; Z79.82 Long term (current) use of aspirin; Z79.899 Other long term (current) drug therapy; Z20.822 Contact with and (suspected) exposure to COVID-19
CPT/HCPCS: 36415; 74021; 74177; 76705; 80048; 80076; 81001; 82550; 82553; 83690; 84484; 85025; 93005; 96361; 96374; 96375; 99284; C9113; J2405; Q9967; U0002

== ENCOUNTER → 2021-10-10 | Outpatient (CLI) | payer OTHER ==
[~2021-10-10] MED LIST changes: +CARA1TAB6 PO; -CEFD1CAP8 PO; +CEFD300C41 PO; -OMEP-221; +OMEP40CA5; -TERB250T12 PO; +TERB250T91 PO
[2021-10-10 10:39] LABS: HEMATOCRIT 44.2 % (42.0-52.0); HEMOGLOBIN 14.8 g/dl (13.5-17.5); MEAN CORPUSCULAR HEMOGLOBIN 30.1 pg (27.0-33.0); MEAN CORPUSCULAR HGB CONC 33.5 g/dl (32.0-36.5); PLATELET COUNT, AUTOMATED 223 10^3/uL (150-450); RED BLOOD COUNT 4.91 10^6/uL (4.30-6.10); WHITE BLOOD COUNT 6.8 10^3/uL (4.0-10.0)
[2021-10-10 11:38] LABS: ALBUMIN 4.2 GM/DL (3.2-5.2); ALT/SGPT 33 U/L (12-78); BILIRUBIN,TOTAL 0.5 MG/DL (0.2-1.0); BLOOD UREA NITROGEN 15 MG/DL (7-18); CALCIUM LEVEL 9.3 MG/DL (8.8-10.2); CARBON DIOXIDE LEVEL 28 MEQ/L (21-32); CHLORIDE LEVEL 107 MEQ/L (98-107); CHOLESTEROL LEVEL 152 MG/DL (<200); CHOLESTEROL RISK RATIO 3.454 (<5); CREATININE FOR GFR 0.98 MG/DL (0.70-1.30); GLOMERULAR FILTRATION RATE > 60.0 (>49); GLUCOSE, FASTING 114 MG/DL (70-100); HDL CHOLESTEROL 44 MG/DL (>40); LDL CHOLESTEROL 85 MG/DL (<100); NON-HDL-C 108 MG/DL; NT-PRO BNP 57 PG/ML (<125); POTASSIUM SERUM 4.2 MEQ/L (3.5-5.1); SODIUM LEVEL 142 MEQ/L (136-145); TOTAL PROTEIN 7.2 GM/DL (6.4-8.2); TRIGLYCERIDES LEVEL 116 MG/DL (<150)
== END ==
LOC: M LAB 10:01
PROVIDERS: ATTEND Physician Assistant
DX: R06.02 Shortness of breath (principal); I25.10 Atherosclerotic heart disease of native coronary artery without angina pectoris

== ENCOUNTER → 2022-04-10 | Outpatient (CLI) | payer MEDICARE, OTHER ==
[2022-04-10 11:08] LABS: HEMATOCRIT 44.9 % (42.0-52.0); HEMOGLOBIN 14.6 g/dl (13.5-17.5); MEAN CORPUSCULAR HEMOGLOBIN 29.9 pg (27.0-33.0); MEAN CORPUSCULAR HGB CONC 32.5 g/dl (32.0-36.5); MEAN CORPUSCULAR VOLUME 91.8 fl (80.0-96.0); PLATELET COUNT, AUTOMATED 208 10^3/uL (150-450); RED BLOOD COUNT 4.89 10^6/uL (4.30-6.10); WHITE BLOOD COUNT 7.7 10^3/uL (4.0-10.0)
[2022-04-10 11:43] LABS: ALBUMIN 4.4 GM/DL (3.2-5.2); ALT/SGPT 31 U/L (12-78); BILIRUBIN,TOTAL 0.4 MG/DL (0.2-1.0); BLOOD UREA NITROGEN 23 MG/DL (7-18); CALCIUM LEVEL 9.7 MG/DL (8.8-10.2); CARBON DIOXIDE LEVEL 29 MEQ/L (21-32); CHLORIDE LEVEL 109 MEQ/L (98-107); CHOLESTEROL LEVEL 156 MG/DL (<200); CHOLESTEROL RISK RATIO 2.836 (<5); CREATININE FOR GFR 1.06 MG/DL (0.70-1.30); GLOMERULAR FILTRATION RATE > 60.0 (>49); GLUCOSE, FASTING 120 MG/DL (70-100); HDL CHOLESTEROL 55 MG/DL (>40); LDL CHOLESTEROL 89 MG/DL (<100); MAGNESIUM LEVEL 2.5 MG/DL (1.8-2.4); NON-HDL-C 101 MG/DL; NT-PRO BNP 24 PG/ML (<125); POTASSIUM SERUM 4.9 MEQ/L (3.5-5.1); SODIUM LEVEL 142 MEQ/L (136-145); TOTAL PROTEIN 7.6 GM/DL (6.4-8.2); TRIGLYCERIDES LEVEL 60 MG/DL (<150)
== END ==
LOC: M LAB 09:28
PROVIDERS: ATTEND Physician Assistant
DX: R06.02 Shortness of breath (principal); Z79.899 Other long term (current) drug therapy

== ENCOUNTER → 2023-08-10 | Outpatient (CLI) | payer MEDICARE, OTHER ==
[~2023-08-10] MED LIST changes: +CEFD1CAP9 PO; -CEFD300C41 PO; -DOXY-350 PO; +DOXY-444 PO
== END ==
LOC: M RAD 09:26
PROVIDERS: ATTEND Surgery Vascular Surgery
DX: I65.22 Occlusion and stenosis of left carotid artery (principal)

== ENCOUNTER 2023-11-25 13:58 | Emergency (ER) | payer MEDICARE, OTHER ==
[~2023-11-25] VITALS: Ht 167.6 cm; Wt 96.0 kg
[2023-11-25] MEDS: IBUPROFEN 600MG TAB PO ONE (17:10)
[2023-11-25 17:45] VITALS: BP 142/69; TEMP 97; O2SAT 98
== END 2023-11-25 17:47 | disposition home or self-care (01) ==
LOC: M ED 13:58
DX: S40.021A Contusion of right upper arm, initial encounter (principal); W17.89XA Other fall from one level to another, initial encounter; I10 Essential (primary) hypertension; G47.33 Obstructive sleep apnea (adult) (pediatric); M50.321 Other cervical disc degeneration at C4-C5 level; Z87.442 Personal history of urinary calculi; Z79.82 Long term (current) use of aspirin; Z79.02 Long term (current) use of antithrombotics/antiplatelets; Z79.83 Long term (current) use of bisphosphonates; Z79.810 Long term (current) use of selective estrogen receptor modulators (SERMs); Z79.899 Other long term (current) drug therapy; Z79.01 Long term (current) use of anticoagulants; Y92.9 Unspecified place or not applicable; Y93.9 Activity, unspecified; Y99.9 Unspecified external cause status

== ENCOUNTER → 2024-02-20 | Outpatient (CLI) | payer MEDICARE, OTHER ==
[~2024-02-20] MED LIST changes: +DOXY-440 PO; -DOXY-444 PO
== END ==
LOC: M SOG 07:53
PROVIDERS: ATTEND Physician Assistant
DX: M25.562 Pain in left knee (principal)

== ENCOUNTER → 2024-02-25 | Outpatient (CLI) | payer MEDICARE, OTHER | LOC: M SOG 07:58 | PROVIDERS: ATTEND Physician Assistant | DX: M25.512 Pain in left shoulder (principal) ==

== ENCOUNTER → 2024-02-25 | Outpatient (CLI) | payer MEDICARE, OTHER ==
[2024-02-25 18:40] LABS: HEMATOCRIT 43.5 % (42.0-52.0); HEMOGLOBIN 14.3 g/dl (13.5-17.5); MEAN CORPUSCULAR HEMOGLOBIN 30.4 pg (27.0-33.0); MEAN CORPUSCULAR HGB CONC 32.9 g/dl (32.0-36.5); MEAN CORPUSCULAR VOLUME 92.4 fl (80.0-96.0); PLATELET COUNT, AUTOMATED 229 10^3/uL (150-450); RED BLOOD COUNT 4.71 10^6/uL (4.30-6.10)
[2024-02-25 18:43] LABS: PROSTATIC SPECIFIC AG MONITOR 1.35 NG/ML (< 4.00)
[2024-02-25 18:46] LABS: ALBUMIN 4.5 G/DL (3.2-5.2); ALKALINE PHOSPHATASE 65 U/L (46-116); ALT/SGPT 30 U/L (7.0-40); AST/SGOT 21 U/L (<34); BILIRUBIN,TOTAL 0.9 MG/DL (0.3-1.2); BLOOD UREA NITROGEN 18 MG/DL (9-23); CALCIUM LEVEL 9.7 MG/DL (8.3-10.6); CARBON DIOXIDE LEVEL 28 MMOL/L (20-31); CHLORIDE LEVEL 106 MMOL/L (98-107); CHOLESTEROL LEVEL 162 MG/DL (<200); CHOLESTEROL RISK RATIO 3.48 (<5); CREATININE FOR GFR 0.86 MG/DL (0.70-1.30); GLOMERULAR FILTRATION RATE > 60.0 (>49); GLUCOSE, FASTING 100 MG/DL (74-106); HDL CHOLESTEROL 46.5 MG/DL (>40); LDL CHOLESTEROL 84.3 MG/DL (<100); NON-HDL-C 115.5 MG/DL; SODIUM LEVEL 142 MMOL/L (136-145); TOTAL PROTEIN 7.3 G/DL (5.7-8.2); TRIGLYCERIDES LEVEL 156 MG/DL (<150)
[2024-02-25 19:07] LABS: HEMOGLOBIN A1c 5.8 % (4.0-6.0)
[2024-02-26 06:54] LABS: WHITE BLOOD COUNT 9.8 10^3/uL (4.0-10.0)
== END ==
LOC: M WUC 12:25
PROVIDERS: ATTEND Physician Assistant
DX: I10 Essential (primary) hypertension (principal); E78.5 Hyperlipidemia, unspecified; I25.10 Atherosclerotic heart disease of native coronary artery without angina pectoris; N40.0 Benign prostatic hyperplasia without lower urinary tract symptoms; R73.01 Impaired fasting glucose

== ENCOUNTER → 2024-04-23 | Outpatient (CLI) | payer MEDICARE, OTHER | LOC: M SOG 07:56 | PROVIDERS: ATTEND Physician Assistant | DX: M79.672 Pain in left foot (principal) ==

== ENCOUNTER → 2024-06-09 | Outpatient (CLI) | payer MEDICARE, OTHER ==
[2024-06-09 18:21] LABS: ALBUMIN 4.2 G/DL (3.2-5.2); ALKALINE PHOSPHATASE 57 U/L (40-129); ALT/SGPT 28 U/L (7.0-40); AST/SGOT 22 U/L (<34); BILIRUBIN,TOTAL 0.6 MG/DL (0.3-1.2); BLOOD UREA NITROGEN 18 MG/DL (9-23); CALCIUM LEVEL 9.7 MG/DL (8.3-10.6); CARBON DIOXIDE LEVEL 28 MMOL/L (20-31); CHLORIDE LEVEL 109 MMOL/L (98-107); CHOLESTEROL LEVEL 144 MG/DL (<200); CHOLESTEROL RISK RATIO 3.34 (<5); CREATININE FOR GFR 0.93 MG/DL (0.70-1.30); GLOMERULAR FILTRATION RATE > 60.0 (>42); GLUCOSE, FASTING 129 MG/DL (74-106); HDL CHOLESTEROL 43.1 MG/DL (>40); LDL CHOLESTEROL 73.5 MG/DL (<100); NON-HDL-C 100.9 MG/DL; POTASSIUM SERUM 4.4 MMOL/L (3.5-5.1); SODIUM LEVEL 142 MMOL/L (136-145); TOTAL PROTEIN 7.3 G/DL (5.7-8.2); TRIGLYCERIDES LEVEL 137 MG/DL (<150)
== END ==
LOC: M WUC 13:43
PROVIDERS: ATTEND Registered Nurse
DX: E78.00 Pure hypercholesterolemia, unspecified (principal)

== ENCOUNTER 2024-11-10 10:37 | Day surgery (SDC) | payer MEDICARE, OTHER ==
[~2024-11-10] VITALS: Ht 167.6 cm; Wt 93.5 kg
[~2024-11-10 10:37] MED LIST changes: +ATOR80TA59 PO; +CALC500T68 PO; -COLC0.6T47; +COLC0.6T47 PO; +CURC500C2 PO; +ECOT81TA5 PO; +EQL50TAB2 PO; +MULTTAB61 PO; -OMEP40CA5; +OMEP40CA5 PO; +SEMA0.252
[2024-11-10] MEDS ORDERED: SODIUM BICARBONATE 8.4% INJ 50MEQ 50ML VIAL XX ONE (12:00)
[2024-11-10] MEDS ORDERED: LIDOCAINE W/EPINEPHRINE 1% 20ML VIAL XX ONE (12:00)
[2024-11-10] MEDS: BACITRACIN OINTMENT 30GM TUBE As Ordered ONE (12:51)
[2024-11-10 13:10] VITALS: BP 163/79; TEMP 98.6; O2SAT 98
== END 2024-11-10 13:24 | disposition home or self-care (01) ==
LOC: M SDC 10:37
PROVIDERS: ATTEND Orthopaedic Surgery Hand Surgery
DX: M65.341 Trigger finger, right ring finger (principal); I25.10 Atherosclerotic heart disease of native coronary artery without angina pectoris; I10 Essential (primary) hypertension; E78.5 Hyperlipidemia, unspecified; K21.9 Gastro-esophageal reflux disease without esophagitis; G47.33 Obstructive sleep apnea (adult) (pediatric); Z98.61 Coronary angioplasty status; Z79.899 Other long term (current) drug therapy

== ENCOUNTER → 2025-04-15 | Outpatient (CLI) | payer MEDICARE, OTHER ==
[~2025-04-15] MED LIST changes: -EQL50TAB2 PO; +VITA1TAB82 PO
[2025-04-15 13:28] LABS: CHOLESTEROL LEVEL 131.0 MG/DL (<200); CHOLESTEROL RISK RATIO 3.08 (<5); LDL CHOLESTEROL 72.9 MG/DL (<100); NON-HDL-C 88.5 MG/DL; TRIGLYCERIDES LEVEL 78.0 MG/DL (<150)
== END ==
LOC: M WUC 08:39
PROVIDERS: ATTEND Registered Nurse
DX: I25.10 Atherosclerotic heart disease of native coronary artery without angina pectoris (principal)

== ENCOUNTER → 2025-06-05 | Outpatient (CLI) | payer MEDICARE, OTHER ==
[~2025-06-05] MED LIST changes: -COLC0.6T47 PO; +COLC0.6T53 PO
== END ==
LOC: M SOG 07:16
PROVIDERS: ATTEND Physician Assistant
DX: M16.11 Unilateral primary osteoarthritis, right hip (principal)

== ENCOUNTER → 2025-06-12 | Outpatient (CLI) | payer MEDICARE, OTHER | LOC: M PLAIMG 08:21 | PROVIDERS: ATTEND Registered Nurse | DX: I08.0 Rheumatic disorders of both mitral and aortic valves (principal) ==

== ENCOUNTER → 2025-07-21 | Outpatient (CLI) | payer MEDICARE, OTHER | LOC: M SOG 07:36 | PROVIDERS: ATTEND Physician Assistant | DX: M19.012 Primary osteoarthritis, left shoulder (principal) ==